=== PATIENT | male | born 1945 | race Caucasian/White ===

== ENCOUNTER → 2017-09-24 06:51 | Outpatient (CLI) | payer MEDICARE, OTHER, SELFPAY ==
--- NOTE | 2017-09-24 06:53 | ECHOCS_ITS ---
Reason For Study: Dyspnea/SOB Procedure This was a 2D Doppler, Color Flow transthoracic echocardiogram. Exam performed in department. Left Ventricle Normal LV size. Left ventricular systolic function is normal. The estimated ejection fraction is 55 %. Transmitral diastolic flow velocities suggest mild (stage 1) diastolic dysfunction (reversed pattern). No regional wall motion abnormalities noted. Right Ventricle Normal RV size. Normal systolic function. Atria Normal left atrium. Normal right atrium. Mitral Valve Normal mitral valve. Tricuspid Valve Normal tricuspid valve. Mild (1+) tricuspid valve insufficiency. Aortic Valve Normal aortic valve. Pulmonic Valve Normal pulmonic valve. Great Vessels Normal aortic root. The pulmonary artery is normal size. Normal inferior vena cava. Pericardium/Pleural No pericardial effusion. Medication Definity0.3ml given slow IV push to enhance endocardial definition. MMode/2D Measurements & Calculations LVIDd: 4.1 cm IVSd: 1.2 cm Ao root diam: 2.6 cm LVIDs: 2.5 cm LVPWd: 1.1 cm LA dimension: 4.1 cm RVDd: 3.6 cm FS: 38.5 % LAV(MOD-bp): 41.8 ml LAV(MOD-bp) Indexed: 22.3 ml/m2 LA A4 area: 15.3 cm2 RA A4 area: 12.6 cm2 LAV(MOD-sp2): 42.3 ml LAV(MOD-sp4): 37.2 ml Doppler Measurements & Calculations MV E max osito: 82.2 cm/sec Lat Peak E' Osito: 11.2 cm/sec Med Peak E' Osito: 7.6 cm/sec MV A max osito: 103.2 cm/sec E/E' lat: 7.3 E/E' med: 10.9 MV E/A: 0.80 Ao V2 max: 163.6 cm/sec LV V1 max: 135.0 cm/sec PA V2 max: 84.4 cm/sec Ao max P.7 mmHg LV V1 max P.3 mmHg Ao V2 mean: 113.1 cm/sec Ao mean P.7 mmHg Ao V2 VTI: 33.3 cm Interpretation Summary Normal LV size. Left ventricular systolic function is normal. The estimated ejection fraction is 55 %. Transmitral diastolic flow velocities suggest mild (stage 1) diastolic dysfunction (reversed pattern). Mild (1+) tricuspid valve insufficiency. Contrast injection was performed. Ordering Physician: Jag Bailey Referring Physician: Tanner Li Performed By: Korin Bhat, ALDO, RVT
--- NOTE | 2017-09-24 17:24 | STRESSREP ---
Stress Test Report Exercise myocardial perfusion stress test. 72-year-old man with a history of known coronary artery disease post angioplasty and stenting of the right coronary artery and the left circumflex artery. Stress protocol: Resting EKG demonstrates normal sinus rhythm with rate of 60 bpm normal intervals and noted resting blood pressure is 158/94 mmHg. The patient exercised according to the regular Ivan protocol for total duration of 7 minutes and 30 seconds. The maximum heart rate attained was 133 bpm which was 88% of maximum predicted heart rate the maximum workload attained was 9.3 metabolic equivalents. At rest there were no ST or T-wave changes noted suggest ischemia at peak exercise upsloping ST changes were noted with no meet the criteria for ischemia. During recovery ventricular couplet activity was noted. The resting blood pressure is 158/94 with a peak blood pressure 190/90 mmHg. No chest pain was noted slight shortness of breath was present. Myocardial perfusion protocol. 11.2 mCi of technetium 99m sestamibi was injected at rest. The patient exercised for 7 minutes and 30 seconds attaining 88% maximum predicted heart rate and a workload of 9.3 metabolic equivalents. At peak exercise 32.3 mCi of technetium 99m sestamibi was injected stress images were obtained stress and rest images were reconstructed and compared in the short axis vertical long and horizontal long axis. Gated images were also obtained. Perfusion SPECT analysis. Review of the stress images demonstrate normal cardiac silhouette size. There is a medium-sized defect noted involving the mid inferior wall noted on the stress images. The resting images demonstrate near complete reperfusion of the above defect. The basal inferior wall appears to have a fixed small defect. The rest of the robins appear to be well perfused. The above is indicative of a medium size mid inferior wall ischemic zone. Gated SPECT analysis. The gated ejection fraction is noted to be 61%. Conclusion: Abnormal exercise myocardial perfusion stress test with moderate amount of ischemia noted in the mid inferior wall of a moderate to high workload. No clinical angina noted. Preserved ejection fraction.
== END ==
PROVIDERS: Family Provider Family Medicine; PCP Family Medicine; Visit Provider Internal Medicine Cardiovascular Disease
DX: I25.10 Atherosclerotic heart disease of native coronary artery without angina pectoris (principal); R06.00 Dyspnea, unspecified
CPT/HCPCS: 78452; 93017; 93306; A9500; Q9957; A4216; C8929; J2785

== ENCOUNTER → 2017-09-29 14:47 | Outpatient (CLI) | payer MEDICARE, OTHER, SELFPAY ==
--- NOTE | 2017-09-29 15:00 | RAD_ITS ---
STUDY: X-RAY CHEST REASON FOR EXAM: Male, 72 years old. Preprocedure assessment TECHNIQUE: Frontal and lateral views of the chest were obtained. COMPARISON: None. FINDINGS: The lungs are adequately aerated. There are coarse opacities in the lingula. There are vague nodular opacities in the periphery of the right upper lung. There is no demonstrated pleural abnormality. The cardiac silhouette is normal in size. The mediastinum and hilar regions are unremarkable. Normal visualized pulmonary arteries. Normal visualized aortic arch and descending thoracic aorta. There are diffuse degenerative changes of the visualized spine. The visualized ribs, clavicles, and shoulders are unremarkable. There is no demonstrated abnormality of the visualized upper abdomen. RAD/Chest PA and Lateral IMPRESSION: No acute cardiopulmonary abnormalities. There is minimal scarring in the lingula. There are two vague nodular opacities in the periphery of the right upper lung, possible granulomas or artifact. Follow-up can be obtained with a repeat study in 4-6 weeks, or with chest CT. Electronically Signed: Mansi Serrano MD at 10:17 EDT Tel Direct: [phone], Service support ,
[2017-09-29 15:08] LABS: Hematocrit 44.2 % (40-54); Hemoglobin 15.4 g/dl (13.0-16.5); Mean Corp Hgb Conc 34.8 g/gl (32-36); Mean Corpuscular Hgb 29.2 pg (27.0-32.0); Mean Corpuscular Volume 83.7 fL (80-94); Mean Platelet Vol. 8.8 fl (6.2-12.0); Platelet Count 282 K/mm3 (150-450); RBC Distribution Width CV 13.5 % (11.6-14.6); RBC Distribution Width SD 41.6 fl (35.1-43.9); Red Blood Count 5.28 M/mm3 (4.6-6.2); White Blood Count 7.3 K/mm3 (4.4-11.0)
[2017-09-29 15:10] LABS: Scan Indicated on CBC? Y/N NO
[2017-09-29 15:31] LABS: Anion Gap 3 (5-15); BUN 18 mg/dL (7-18); BUN/Creat Ratio 19.3 RATIO (10-20); Calcium,Total 8.8 mg/dL (8.5-10.1); Chloride 109 mmol/L (98-107); Creatinine, Serum 0.93 mg/dL (0.70-1.30); EST Glomerular Filtration Rate 85 mL/min (>60); Est Glom Filt Rate - Afr Amer 103 mL/min (>60); Glucose 81 mg/dL (74-106); Potassium 3.9 mmol/L (3.5-5.1); Sodium Level 140 mmol/L (136-145)
== END ==
PROVIDERS: Family Provider Family Medicine; PCP Family Medicine; Visit Provider Internal Medicine Cardiovascular Disease
DX: R94.39 Abnormal result of other cardiovascular function study (principal)
CPT/HCPCS: 36415; 71046; 80048; 85027

== ENCOUNTER 2017-10-03 08:51 | Day surgery (SDC) | payer MEDICARE, OTHER, SELFPAY ==
[2017-10-02 12:04] VITALS: BMI 28.5
[2017-10-03] VITALS (16 sets, daily range): BP systolic 126–163; BP diastolic 79–98; PULSE 70–99; RESP 13–24; TEMP 36.7–36.8; O2SAT 92–97; BMI 28.2
--- NOTE | 2017-10-03 11:12 | CL.D_ITS ---
Patient Name: VEGA FRAZIER Study Date: 10/03/2017 Performing: Jag Bailey MD Ht: 66.14 inches 168 cm : 1945 Wt: 176.37 lbs 80 kg Age: 72 Gender: male BSA: 1.9 PROCEDURE(S) PERFORMED BU42-XBW/COR/LV CLINICAL PROFILE AND INDICATIONS Indications: Other Heart Failure: None Stress/Imaging Stress Test w/SPECT MPI: Yes Result: Positive Low RiskStress Test with SPECT MPI: Positive Low Risk Angina Classification Anginal Classification w/in 2 Weeks: CCS I CAD Presentations: Stable angina. CONCLUSIONS Mild disease noted of the left anterior descending artery. Patent stents noted in the left circumfle x artery with no significant stenosis. 40-50% in-stent stenosis of the right coronary artery and a n ew 90% posts stent stenosis RECOMMENDATIONS Referred for immediate PCI DESCRIPTION OF PROCEDURE The patient arrived to the procedure lab. The risks and benefits of the procedure as well as a full d escription of our services here and current unavailability of surgical backup were fully explained to the patient and/or their significant other prior to the catheterization. The Timeout was completed, verifying the correct patient and procedure. The patient's procedural site was prepped and draped in the usual fashion. Local anesthetic was given subcutaneously to right groin region with Lidocaine 2%. Using a modified Seldinger technique, arterial access was obtained via the right femoral artery, a 5 Fr sheath was inserted. Left Coronary Artery selective angiography was performed in multiple views u sing a 5 Fr. JL4 catheter. Right Coronary Artery selective angiography was then performed in multiple views using a 5 Fr. 3DRC (Yoan) catheter. Left Ventriculography was performed in CHOPRA projection using a 5 Fr. Pigtail catheter. LV to AO pullback pressures were then recorded. CORONARY ANGIOGRAPHY DOMINANCE: Right Dominant LEFT HEART ASSESSMENT Left Ventricular Ejection Fraction: by LV Gram 60 % Normal LV wall motion LEFT MAIN: short mild disease LEFT ANTERIOR DECENDING ARTERY: Mild luminal irregularities CIRCUMFLEX ARTERY: Previously placed stent is patent RIGHT CORONARY ARTERY: Mild luminal irregularities DISTAL RCA: Previously placed stent has instent 50 % restenosis with a new 90% at distal edge of ghassan nt COMPLICATIONS PROCEDURE MEDICATIONS Versed 1 mg IV Versed 1 mg IV Versed 1 mg IV Oxygen: 2 L/min via nasal cannula Heparin 6000 unit(s) IV 10/03/2017 11:04:01 Nitro 200 mcg IC 10/03/2017 11:06:55 SUMMARY OF HEMODYNAMIC DATA Time AIR REST ECG 09:14:23 AO 135/90 (113) SA 10:45:19 LV 127/-6, 14 10:53:57 LV 126/-5, 15 10:54:04 LV 100/17, 32 10:54:48 LVp 124/-1, 17 10:55:06 AOp 123/64 (91) 10:55:11 Signed By Jag Bailey MD On 10/03/2017 11:11:46 Jag Bailey MD
[2017-10-03 12:27] LABS: Hemoglobin 14.9 g/dl (13.0-16.5); Mean Corp Hgb Conc 34.7 g/gl (32-36); Mean Corpuscular Volume 83.8 fL (80-94); Mean Platelet Vol. 9.1 fl (6.2-12.0); Platelet Count 246 K/mm3 (150-450); RBC Distribution Width CV 13.6 % (11.6-14.6); RBC Distribution Width SD 41.6 fl (35.1-43.9); Red Blood Count 5.13 M/mm3 (4.6-6.2); White Blood Count 7.4 K/mm3 (4.4-11.0)
[2017-10-03 12:28] LABS: Scan Indicated on CBC? Y/N NO
[2017-10-03 12:40] LABS: CPK Total, Creatine Kinase 70 U/L (39-308)
[2017-10-03 12:41] LABS: ACT Activated Clotting Time 213 sec (74-137)
[2017-10-03 13:54] LABS: M R Staph aureus DNA By PCR Negative (Negative); Probe Check PASS; Specimen Processing Control PASS
--- NOTE | 2017-10-03 15:31 | CL.I_ITS ---
Patient Name: VEGA FRAZIER Study Date: 10/03/2017 Performing: Isaías Bell MD Ht: 66.14 inches 168 cm : 1945 Wt: 176.37 lbs 80 kg Age: 72 Gender: male BSA: 1.9 PROCEDURE(S) PERFORMED [id number] W OR WO PTCA, SINGLE CORONARY ARTERY CLINICAL PROFILE AND CO-MORBIDITIES Indications: Other, Worsening Angina, Stable Known CAD Heart Failure: None Stress/Imaging Stress Test w/SPECT MPI: Yes Result: Positive Low Risk Stress Test with SPECT MPI: Positive Low Risk Angina Classification Anginal Classification w/in 2 Weeks: CCS I CAD Presentations: Stable angina. Unstable angina. Comorbidities/Risk Factors: Hypertension Dyslipidemia Prior PCI CONCLUSIONS Successful PTCA/MINA of the distal RCA unitilzing a 3.0 x 38 Promus Synergy stent, post dilated proxim ally and within old 3.5 mm Taxus stent with a 3.5 x 12 NC balloon; 75%-->0%, no dissection. RECOMMENDATIONS Highly recommend quitting all tobacco products Follow up with primary mechatronics engineer Risk factor modification ASA Indefinitley Plavix for at least 12 months Routine post interventional care Refer for Outpatient Cardiac Rehab Manual sheath removal per protocol Follow up with Dr. Bailey DESCRIPTION OF PROCEDURE The patient arrived to the procedure lab. The risks and benefits of the procedure as well as a full d escription of our services here and current unavailability of surgical backup were fully explained to the patient and/or their significant other prior to the catheterization. The Timeout was completed, verifying the correct patient and procedure. The patient's procedural site was prepped and draped in the usual fashion. Local anesthetic was given subcutaneously to right groin region with Lidocaine 2% Using a modified Seldinger technique,arterial access was obtained via the right femoral artery, a 5Fr sheath was inserted. Left Coronary Artery selective angiography was performed in multiple views usin g a 5 Fr. JL4 catheter. Right Coronary Artery selective angiography was then performed in multiple vi ews using a 5 Fr. 3DRC (Yoan) catheter. Left Ventriculography was performed in CHOPRA projection usi ng a 5 Fr. Pigtail catheter. LV to AO pullback pressures were then recorded.The images were reviewed and options discussed. A decision was then made to proceed with an Intervention, IVUS or other adjunc t procedure. Arterial sheath was exchanged for a 6 Fr Sheath Angiogram performed pre balloon dilatation. bmw Guide catheter was inserted and engaged into the RCA. bmw Guide wire was advanced to the RCA. emerge 2.00 x 12 Balloon catheter was advanced across lesion in the right coronary, distal. PTCA balloon inflated at 8 atms for 11 secs Angiogram performed pre stent deployment. synergy 3.00 x 38 Drug Eluting stent was advanced across the lesion in the right coronary, distal. Angiogram performed post stent deploym ent. nc emerge 3.5 x 12 Balloon catheter was inserted post stent. Angiogram performed post stent depl oyment.. . The arterial sheath was pulled and a Mynx closure device was deployed for hemostasis. INTERVENTION INFORMATION LESION SITE: RCA (Distal) Lesion Complexity: High/C, lesion at bifurcation: No, thrombus present: No, lesion length: 38 mm, cul prit lesion: Yes, In-stent restenosis: Yes Pre Stenosis: 75 % Pre intervention MARLA flow: 3 PROCEDURE: Drug Eluting Stent with pre and post dilatation Post Stenosis: 0 % Post intervention MARLA flow: 3 Lesion Devices: Ayala .014 BMW [place] Straight 190cm Genaro Sci EMERGE MR 2.00x12 BALLOON Medtronic 6 Fr HSII 100cm Guide Catheter Genaro Sci Synergy MR MINA 3.00x38 Genaro Sci NC EMERGE MR 3.50x12 BALLOON COMPLICATIONS No Complications PROCEDURE MEDICATIONS Versed 1 mg IV Versed 1 mg IV Versed 1 mg IV Oxygen: 2 L/min via nasal cannula Heparin 6000 unit(s) IV 10/03/2017 11:04:01 Nitro 200 mcg IC 10/03/2017 11:06:55 Nitro 200 mcg IC 10/03/2017 11:06:55 SUMMARY OF HEMODYNAMIC DATA Time AIR REST ECG 09:14:23 AO 135/90 (113) SA 10:45:19 LV 127/-6, 14 10:53:57 LV 126/-5, 15 10:54:04 LV 100/17, 32 10:54:48 LVp 124/-1, 17 10:55:06 AOp 123/64 (91) 10:55:11 Signed By Isaías Bell MD On 10/03/2017 15:31:00 Isaías Bell MD
--- NOTE | 2017-10-03 15:45 | CRPHASE1 ---
Patient Data/Charges Phase II Referral:: [facility] Start Phase II:: FOLLOWING CARDIOLOGY OFFICE VISIT Risk Factors/Lifestyle Smoking Status: Never smoker Hx Metabolic Disorders: Yes Hx Dyslipidemia: Yes Height: 5 ft 6 in - WT 176# ETOH: Yes Risk Factor for Sedentary Lifestyle: Moderate Risk Family History: Family History (Last Reviewed 09/10/17 @ 09:59 by Jag Bailey MD) Father CAD (coronary artery disease) Myocardial infarction Brother Heart disease Other Hypertension Family History: Heart Disease Past Cardiac Illness: Coronary Artery Disease, Previous PCI w/Stent Phase I Education Given On:: [place], Nutrition, Antiplatelet medication Issues Affecting Care:: None Knowledge of Condition:: Yes Learning Preferences: Verbal Hospital Course Presenting Symptoms:: ABNORMAL STRESS Medical/Surgical History DC:: No CAD:: Yes Diabetes:: No Hypertension:: No Dyslipidemia:: Yes Arthritis:: Yes PTCA:: Yes - 2005 Discharge/Home/Social Eval Discharge Disposition: Home
--- NOTE | 2017-10-03 15:49 | CRPHASE1_ITS ---
Patient Data/Charges Phase II Referral:: [facility] Start Phase II:: FOLLOWING CARDIOLOGY OFFICE VISIT Risk Factors/Lifestyle Smoking Status: Never smoker Hx Metabolic Disorders: Yes Hx Dyslipidemia: Yes Height: 5 ft 6 in - WT 176# ETOH: Yes Risk Factor for Sedentary Lifestyle: Moderate Risk Family History: Family History (Last Reviewed 09/10/17 @ 09:59 by Jag Bailey MD) Father CAD (coronary artery disease) Myocardial infarction Brother Heart disease Other Hypertension Family History: Heart Disease Past Cardiac Illness: Coronary Artery Disease, Previous PCI w/Stent Phase I Education Given On:: [place], Nutrition, Antiplatelet medication Issues Affecting Care:: None Knowledge of Condition:: Yes Learning Preferences: Verbal Hospital Course Presenting Symptoms:: ABNORMAL STRESS Medical/Surgical History DC:: No CAD:: Yes Diabetes:: No Hypertension:: No Dyslipidemia:: Yes Arthritis:: Yes PTCA:: Yes - 2005 Discharge/Home/Social Eval Discharge Disposition: Home
--- NOTE | 2017-10-03 15:50 | CRPH1.INST_ITS ---
General Education CAD and cardiac anatomy and function:: Patient communicates acknowledgment Explanation of diagnoses and procedures:: Patient communicates acknowledgment Sign/Symptoms of TN:: Patient communicates acknowledgment Antiplatelet therapy: Patient communicates acknowledgment Proper use of NTG-SL: Patient communicates acknowledgment Emergency procedures and activation of EMS: Patient communicates acknowledgment Compliance of all prescribed medications: Patient communicates acknowledgment Smoking Patient Nicotine/Smoking Risk Factors Are:: Never smoked Dyslipidemia Recommendations Include:: Lipid profile not available, Reviewed NCEP/ATP guidelines, Therapeutic Lifestyle Change dietary guidelines Dyslipidemia Response Code:: Patient communicates acknowledgment Overweight/Obesity Patient Overweight/Obesity Risk Factors Are:: Overweight = 26-29 Recommendations Include:: Weight loss of 5-10%, Reduced calorie diet, Exercise 5 -7 times/week Overweight/Obesity:: Patient communicates acknowledgment Hypertension Patient Hypertension Risk Factors Are:: No documented hx of HTN Heart Disease Patient Heart Disease Risk Factors Are:: Family history of heart disease < 65 years old, Previous cardiac event Heart Disease Response Code:: Patient communicates acknowledgment Diabetes Patient Diabetes Risk Factors Are:: No documented hx of diabetes Metabolic Syndrome Recommendations Include:: Does not meet criteria Sedentary Patient Sedentary Risk Factors Are:: Lack of regular exercise Recommendations Include:: Aerobic exercise 5-7 times/week for 20-30 minutes continuously, Benefits of regular exercise, Discussed home walking program, Monitored Outpatient Cardiac Rehab Sedentary Response Code:: Patient communicates acknowledgment Stress Recommendations Include:: Identification of stressors, and assessment of coping skills, Stress management techniques Stress Response Code:: Patient communicates acknowledgment
[2017-10-03 18:01] LABS: Hematocrit 45.4 % (40-54); Hemoglobin 15.3 g/dl (13.0-16.5); Mean Corp Hgb Conc 33.7 g/gl (32-36); Mean Corpuscular Hgb 28.4 pg (27.0-32.0); Mean Corpuscular Volume 84.4 fL (80-94); Platelet Count 225 K/mm3 (150-450); RBC Distribution Width CV 13.7 % (11.6-14.6); RBC Distribution Width SD 42.2 fl (35.1-43.9); Red Blood Count 5.38 M/mm3 (4.6-6.2); White Blood Count 8.3 K/mm3 (4.4-11.0)
[2017-10-03 18:12] LABS: CPK Total, Creatine Kinase 70 U/L (39-308)
[2017-10-03 18:16] LABS: Scan Indicated on CBC? Y/N NO
[2017-10-03] MEDS: Metoprolol Tartrate 25 MG Tablet 12.5 MG PO (20:38)
[2017-10-04] VITALS (14 sets, daily range): BP systolic 95–154; BP diastolic 46–89; PULSE 62–90; RESP 15–19; TEMP 36.7–36.9; O2SAT 93–98
[2017-10-04 00:18] LABS: Hematocrit 43.5 % (40-54); Hemoglobin 14.7 g/dl (13.0-16.5); Mean Corp Hgb Conc 33.8 g/gl (32-36); Mean Corpuscular Hgb 28.6 pg (27.0-32.0); Mean Corpuscular Volume 84.6 fL (80-94); Platelet Count 227 K/mm3 (150-450); RBC Distribution Width CV 13.6 % (11.6-14.6); Red Blood Count 5.14 M/mm3 (4.6-6.2); White Blood Count 7.5 K/mm3 (4.4-11.0)
[2017-10-04 00:19] LABS: Scan Indicated on CBC? Y/N NO
[2017-10-04 00:37] LABS: CPK Total, Creatine Kinase 62 U/L (39-308)
[2017-10-04] MEDS: 0.9% NaCl Peripheral Flush Adult/Peds IV (05:24)
[2017-10-04 05:40] LABS: Mean Corp Hgb Conc 34.9 g/gl (32-36); Mean Corpuscular Hgb 29.2 pg (27.0-32.0); Mean Corpuscular Volume 83.7 fL (80-94); Platelet Count 242 K/mm3 (150-450); RBC Distribution Width CV 13.6 % (11.6-14.6); RBC Distribution Width SD 41.4 fl (35.1-43.9); Red Blood Count 5.14 M/mm3 (4.6-6.2); White Blood Count 7.7 K/mm3 (4.4-11.0)
[2017-10-04 05:41] LABS: Scan Indicated on CBC? Y/N NO
[2017-10-04 06:40] LABS: Anion Gap 9 (5-15); BUN 14 mg/dL (7-18); BUN/Creat Ratio 16.5 RATIO (10-20); Calcium,Total 8.8 mg/dL (8.5-10.1); Chloride 106 mmol/L (98-107); Cholesterol 126 mg/dL (200); Creatinine, Serum 0.85 mg/dL (0.70-1.30); EST Glomerular Filtration Rate 95 mL/min (>60); Est Glom Filt Rate - Afr Amer 115 mL/min (>60); Estimated Creatinine Clearance 72.97 ml/min; Glucose 94 mg/dL (74-106); High Density Lipoprotein 31 mg/dL; Potassium 4.2 mmol/L (3.5-5.1); Sodium Level 141 mmol/L (136-145); Triglycerides 158 mg/dL; Very Low Density Lipoprotein 32 mg/dL (5-40)
[2017-10-04] MEDS: Aspirin E.C. 81 MG Tablet PO (08:06)
[2017-10-04] MEDS: Metoprolol Tartrate 25 MG Tablet 12.5 MG PO (09:19)
[2017-10-04] MEDS: Lisinopril 5 MG Tablet PO (09:19)
[2017-10-04] MEDS: Atorvastatin Calcium 40 MG Tablet PO (09:19)
[2017-10-04] MEDS: Clopidogrel Bisulfate 75 MG Tablet PO (09:20)
--- NOTE | 2017-10-04 09:37 | PN.CARD_ITS ---
Subjectve: The patient was seen and evaluated. Appears to be doing well. Has no chest pain no arrhythmias and no groin complaints mild ecchymosis only noted. Objective: Vital Signs Temp Pulse Resp BP Pulse Ox 98.5 F 89 18 154/85 H 93 10/04/17 08:00 10/04/17 09:19 10/04/17 09:00 10/04/17 09:19 10/04/17 09:00 Oxygen Flow Rate (L/min) 2 Oxygen Delivery Method Room Air Weight: 168 lb 13.985 oz Body Mass Index (BMI) 28.2 Intake and Output for Last 24 Hours 10/02/17 10/03/17 10/04/17 23:59 23:59 23:59 Intake Total 780 / 780 520 / 520 Balance 780 / 780 520 / 520 General: Awake, Alert, Oriented x 3 HEENT: PERRL, EOMI, Sclera Non Icteric Neck: Supple, Good ROM, No Lymph Node Enlargement Lungs: Clear to auscultation Cardiovascular: Regular Rhythm, Normal S1, Normal S2, No Murmurs, No Rubs, No Gallops Vascular: No Carotid Bruits, Normal Femoral Pulses, Normal Radial Pulses, Normal Dorsalis Pedal Pulse, Normal Posterior Tibial Pulses Abdomen: Bowel Sounds Present, Soft, Non Tender, No HSM, No Organomegaly Extremities: No Cyanosis, No Clubbing, No edema Neurological: No Focal Motor or Sensory Deficit 10/03/17 12:10: WBC 7.4, RBC 5.13, Hgb 14.9, Hct 43.0, MCV 83.8, MCH 29.0, MCHC 34.7, RDW 13.6, RDW Differential 41.6, Plt Count 246, MPV 9.1 10/03/17 17:45: WBC 8.3, RBC 5.38, Hgb 15.3, Hct 45.4, MCV 84.4, MCH 28.4, MCHC 33.7, RDW 13.7, RDW Differential 42.2, Plt Count 225, MPV 9.0 10/04/17 00:00: WBC 7.5, RBC 5.14, Hgb 14.7, Hct 43.5, MCV 84.6, MCH 28.6, MCHC 33.8, RDW 13.6, RDW Differential 42.0, Plt Count 227, MPV 9.0 04/07/18 05:20: Sodium 141, Potassium 4.2, Chloride 106, Carbon Dioxide 26.0, Anion Gap 9, BUN 14, Creatinine 0.85, Est GFR (MDRD) Af Amer 115, Est GFR (MDRD ) Non-Af 95, BUN/Creatinine Ratio 16.5, Glucose 94, Calcium 8.8, Triglycerides 158, Cholesterol 126, LDL Cholesterol 63, VLDL Cholesterol 32, HDL Cholesterol 31 L 10/04/17 05:20: WBC 7.7, RBC 5.14, Hgb 15.0, Hct 43.0, MCV 83.7, MCH 29.2, MCHC 34.9, RDW 13.6, RDW Differential 41.4, Plt Count 242, MPV 9.0 Rhythm: EKG: ECHO: Stress Test: Cardiac Cath: PCI: CT Surgery: Holter monitor: EPS: PPM: CXR: Chest CT Scan: Medical Necessity - Tobacco Use Smoking Status: Never smoker Assessment/Plan 1. Coronary artery disease status post angioplasty Patient had known coronary artery disease with abnormal stress test he underwent cardiac catheterization which revealed mild left anterior descending artery stenosis, previously placed stent in the circumflex artery which was patent, and high-grade stenosis in the right coronary artery within and after the previously placed stent. He underwent angioplasty and stenting with a 3.5? 38 mm Promus drug-eluting stent successfully without any complications. His hemoglobin has remained stable his creatinine has remained stable with no significant fall and rise respectively and EKG has remained unremarkable. Patient will be discharged today to follow-up in our office. He will remain on aspirin 81 mg a day, Plavix 75 mg a day, metoprolol 12.5 mg twice daily, and lisinopril 10 mg a day. Will also participate in cardiac rehabilitation.
--- NOTE | 2017-10-04 09:43 | DCINST_ITS ---
Discharge Diet: Low fat/ Low Cholesterol May resume sexual activity in: 1 week Lifting Restrictions: 10 pounds and also avoid any pushing or pulling for 3 days after your test. Additional Activity Instructions:: You must have someone drive you home. Do not drive until instructed by your doctor. You must have someone stay with you all night after your test. Rest in bed or on the couch until the next morning. Limit the number of times you go up and down stairs the day of your test. Apply pressure to the puncture site if you sneeze or cough. Call your doctor if your incision/area has: Increased Pain/ Swelling, Increased Redness, Foul Smelling Discharge, Swelling at the incision site Call your doctor if you observe: Fever of 101 or Higher Change Dressing in (Days):: 2 Cleanse incision/area with: Keep Dressing Clean & Dry Additional Dressing/Incision Instructions:: Keep the dressing (bandage) on until the next morning. You may then shower, but do not take a tub bath for 5 days after your test. It is normal to have some tenderness and discomfort at the puncture site. Sometimes bruising also occurs. However, if pain, numbness, or coldness occurs below the puncture site (in your leg, toes, arms or fingers) call your doctor at once. You may have a small, marble sized knot at the puncture site. This is normal. Do not rub it. It will go away in 4-6 weeks. Bleeding can occur from the area where the puncture was done. Blood may spurt or drip from the site. If blood spurts, apply pressure right away to stop bleeding and call 911. Although rare, bleeding into the tissue (hematoma) can also occur. If this happens, a large, firm area goose egg under the skin will appear. If any of these occur, lie down as flat as you can and have someone apply firm pressure to the cath site with a gauze pad or a clean washcloth for 10-15 minutes. Call 911 or go to the Emergency Department. Allergies/Adverse Reactions: Allergies Penicillins Allergy (Verified 09/10/17 09:21) Rash Medications to take at Discharge aspirin 81 mg tablet,delayed release 81 mg PO QDAY tab 09/09/17 turmeric root extract 500 mg capsule 500 mg PO QDAY 09/10/17 atorvastatin 40 mg tablet 40 mg PO QDAY #30 tab 09/24/17 clopidogrel 75 mg tablet 75 mg PO .COMPLEX #30 tab 09/26/17 Lisinopril [Zestril] 10 mg PO DAILY #90 tab 10/04/17 Metoprolol Tartrate [Lopressor (beta ayad)] 12.5 mg PO BID #120 tab 10/04/17 The following prescriptions were given: Lisinopril [Zestril] 10 mg PO DAILY #90 tab Metoprolol Tartrate [Lopressor (beta ayad)] 12.5 mg PO BID #120 tab Primary Care Physician: Tanner Li MD [Primary Care Provider] - Please Follow Up With: [facility]. Cardiac Rehabilitation Info Cardiac Rehabilitation Program Information: Cardiac Rehabilitation is important for patients like you who are recovering from a heart problem. Cardiac rehabilitation programs are recognized as integral to the continued care of the patient with coronary heart disease. The cardiac rehabilitation program is designed to optimize a patient's physical, psychological, and social functioning. Health wound care specialist work in cardiac rehabilitation programs and assist you with getting the treatments you need to get stronger and healthier - like exercise, healthy eating habits, and medications. Cardiac rehabilitation has been show to help people with heart problems live longer and have better life enjoyment than people who do not go to cardiac rehabilitation. Please contact the Cardiac Rehabilitation Program at [facility] at in two weeks if you have not heard from them.
[2017-10-04] MEDS: Lisinopril 10 MG Tablet PO (10:13)
--- NOTE | 2017-10-04 12:06 | EKG12_ITS ---
Test Reason : AM EKG Blood Pressure : / mmHG Vent. Rate : 076 BPM Atrial Rate : 076 BPM P-R Int : 172 ms QRS Dur : 072 ms QT Int : 388 ms P-R-T Axes : 065 066 066 degrees QTc Int : 436 ms Normal sinus rhythm Normal ECG No previous ECGs available Confirmed by JOSIE CERNA, MARISSA ([id number]), editor managing newspaper MORE DUNBAR ([id number]) on 10/09/2017 2:21:59 PM Referred By: Marissa Bailey Confirmed By:MARISSA BAILEY MD
== END 2017-10-04 10:25 | disposition home or self-care (01) ==
LOC: CLSP 08:51 → ICU 11:06
PROVIDERS: Internal Medicine Cardiovascular Disease; Family Provider Family Medicine; PCP Family Medicine; Visit Provider Internal Medicine Cardiovascular Disease
DX: T82.855A Stenosis of coronary artery stent, initial encounter (principal); I25.10 Atherosclerotic heart disease of native coronary artery without angina pectoris; E78.5 Hyperlipidemia, unspecified; E78.00 Pure hypercholesterolemia, unspecified; M19.90 Unspecified osteoarthritis, unspecified site; Z87.438 Personal history of other diseases of male genital organs; Z87.440 Personal history of urinary (tract) infections; Z90.89 Acquired absence of other organs; Z79.82 Long term (current) use of aspirin
CPT/HCPCS: 80048; 80061; 82550; 85027; 85347; 87641; 92928; 93005; 93458; 99152; 99153; C1760; J7040; A4216; C1725; C1769; C1874; C1887; C9600; Q9967

== ENCOUNTER → 2017-10-06 15:41 | Outpatient (CLI) | payer MEDICARE, OTHER, SELFPAY ==
--- NOTE | 2017-10-06 15:52 | ADUL_ITS ---
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 LT CFV demonstrates normal phasic flow signal. No evidence of pseudoaneurysm or AV fistula. Procedure Exam performed in department. Interpretation Summary Common femoral arteries appear bilaterally patent, demonstrating pulsatile color flow bilaterally. Common femoral veins are patent bilaterally, demonstrating normal, phasic venous flow. There is no evidence of pseudoanuerysm, arterio-venous fistula, or other iatrogenic abnormality on either side. Ordering Physician: Jag Bailey Referring Physician: Jag Bailey Performed By: Shelly Land RVT
== END ==
PROVIDERS: Family Provider Family Medicine; PCP Family Medicine; Visit Provider Internal Medicine Cardiovascular Disease
DX: R09.89 Other specified symptoms and signs involving the circulatory and respiratory systems (principal); Z95.5 Presence of coronary angioplasty implant and graft
CPT/HCPCS: 93926

== ENCOUNTER → 2020-03-29 06:39 | Outpatient (CLI) | payer MEDICARE, OTHER, SELFPAY ==
[2020-02-03 10:05] VITALS: BMI 28.8
--- NOTE | 2020-03-29 17:46 | STRESSREP ---
Stress Test Report Exercise myocardial perfusion stress test. 74-year-old man with a history of previous drug-eluting stent to the right coronary artery. Stress protocol: Resting EKG demonstrates normal sinus rhythm with a rate of 70 bpm normal intervals are noted resting blood pressure 150/82 mmHg. The patient exercised according to regular Ivan protocol for 6 minutes and 30 seconds. The maximum heart rate attained was 1 and 34 bpm which was 90% of maximum predicted heart rate the maximum workload was 7.7 metabolic equivalents. At rest there were no ST or T wave changes noted suggest ischemia at peak exercise upsloping ST changes only were noted with no meet the criteria for ischemia. No clinical angina was noted. The resting blood pressure was 150/82 mmHg with a peak blood pressure 158/70 mmHg. Myocardial perfusion protocol. 12.0 mCi of technetium 99m sestamibi was injected at rest. The patient exercised according to regular Ivan protocol. At peak exercise 35.7 mCi of technetium 99m sestamibi was injected stress images were obtained stress and rest images are reconstructed and compared in the short axis vertical and horizontal long axis. Gated images were also obtained Perfusion SPECT analysis: Review of the stress images demonstrate normal uptake of tracer noted in all areas of myocardium the resting images similarly demonstrate normal uptake of tracer noted in all areas of the myocardium. No areas of reversibility are noted suggest ischemia no previous infarct is noted. Gated SPECT analysis: The gated ejection fraction is 69%. Conclusion: Normal exercise myocardial perfusion stress test with no evidence of ischemia. Preserved ejection fraction. Good functional capacity.
== END ==
PROVIDERS: PCP Family Medicine; Referring Provider Internal Medicine Cardiovascular Disease; Visit Provider Internal Medicine Cardiovascular Disease
DX: Z95.5 Presence of coronary angioplasty implant and graft (principal)
CPT/HCPCS: 78452; 93017; A9500; A4216

== ENCOUNTER 2020-05-15 14:13 | Inpatient (IN) | payer MEDICARE, OTHER, SELFPAY ==
[2020-02-03 10:05] VITALS: BMI 28.8
[2020-05-15] VITALS (11 sets, daily range): BP systolic 103–133; BP diastolic 63–80; PULSE 83–112; RESP 16–22; TEMP 36.7–36.9; O2SAT 95–96; BMI 25.8
--- NOTE | 2020-05-15 13:26 | HP.PCM_ITS ---
History of Present Illness Date of Admission: 05/15/20 Chief Complaint: shortness of breath The patient is a 75 year old M with a PMH as listed who was admitted as a direct admit from [facility] with a complaint of chest pain and shortness of breath for 2 days. Patient was admitted at [facility] from May 05- for COVID 19 infection. Whilst there, he was on the prophylactic dose of eliquis for DVT prophylaxis. Patient started having shortness of breath 2 days ago, with associated pleuritic chest pain. Chest pain was mainly right sided. He went back to [facility] ER today, where imaging done showed bilateral PE with right heart strain. EKG done showed sinus tachycardia. He was transferred to [facility] o/a of there being no non-COVID beds there. Patient was seen on admission in his room. He still complained of mild shortness of breath, and mild right sided pleuritic chest pain. Review of systems was otherwise negative. Vitals reviewed. Temperature was 98.1 Fahrenheit with blood pressure 133/78, pulse rate of 104 and respiratory of 16. He was saturating 96% on 2 L of oxygen. Past Medical History Past Medical History (Chronic Problems): Chronic Problems (Last Reviewed 02/03/20 @ 10:[address] Jag Bailey MD) Atherosclerosis of coronary artery of jena heart without angina pectoris (Chronic) History of coronary artery stent placement (Chronic 10/03/17) MINA-RCA 3.5 X 28 MM Taxus 02/25/2006 MINA-Mid CX 2.5 x 13 mm and 2.58 mm Cypher 03/10/2006; [id number] RCA w/ 3.0 x 38 Promus Synergy stent 10/03/2017 Essential (primary) hypertension (Chronic) Hyperlipidemia (Chronic) Medical History: Medical History (Last Reviewed 02/03/20 @ 10:[address] Jag Bailey MD) Atherosclerosis of coronary artery of jena heart without angina pectoris (Chronic) I25.10 Essential (primary) hypertension (Chronic) I10 Hyperlipidemia (Chronic) E78.5 Arthritis M19.90 Prostatitis N41.9 Bruit (Inactive) R09.89 Allergies Penicillins Allergy (Verified 02/03/20 10:05) Rash Home Medications: Ambulatory Orders Medication Instructions Recorded aspirin 81 mg tablet,delayed 81 mg PO QDAY tab 09/09/17 release Apixaban [Eliquis] 5 mg PO BID 05/15/20 Atorvastatin Calcium [Lipitor] 40 mg PO QDAY 05/15/20 Clopidogrel Bisulfate [Clopidogrel] 75 mg PO DAILY 05/15/20 Lisinopril [Prinivil] 10 mg PO DAILY 05/15/20 Metoprolol Tartrate 25 mg PO BID 05/15/20 Surgical History: Surgical History (Last Reviewed 02/03/20 @ 10:[address] Jag Bailey MD) History of coronary artery stent placement (Chronic) Onset Date: 10/03/17 Z95.5 MINA-RCA 3.5 X 28 MM Taxus 02/25/2006 MINA-Mid CX 2.5 x 13 mm and 2.58 mm Cypher 03/10/2006; [id number] RCA w/ 3.0 x 38 Promus Synergy stent 10/03/2017 History of appendectomy Z90.49 Psychiatric History: No pertinent psych hx Lives: With Family Smoking Status: Never smoker Alcohol: None Drugs: None - *Family History Maternal Family History: Family History (Last Reviewed 02/03/20 @ 10:[address] Jag Bailey MD) Father CAD (coronary artery disease) Myocardial infarction Brother Heart disease Other Hypertension Review of Systems Constitutional: Denies: Chills, Fever, Malaise, Weakness, Weight Change Eyes: Denies: Blurred vision HEENT: Denies: Head Aches, Sinus Congestion, Sinus Drainage Cardiovascular: Reports: Chest Pain. Denies: Chest Tightness, Heaviness, Light Headedness, Orthopnea, Palpitations, Paroxysmal Noc. Dyspnea, Syncope Respiratory: Reports: Cough, Pleuritic Pain, Shortness of Breath, Shortness of breath at rest, Shortness of breath upon exertion. Denies: Hemoptysis, Sputum production, Wheezing Gastrointestinal: Denies: Abdominal Pain, Nausea, Vomiting Genitourinary: Denies: Dysuria Musculoskeletal: Denies: Joint Pain, Joint Tenderness Skin: Denies: Rash, Wounds Neurological: Denies: Numbness, Tingling, Focal weakness Psychiatric: Denies: Anxiety, Depression, Homicidal Ideations, Suicidal Ideations Hematologic/ Lymphatic: Denies: Easy Bruising, Easy Bleeding VTE Information - Inpt Only VTE Present on Admission: Yes - Physical Exam Vitals/I&O's: Body Mass Index (BMI) 28.8 General: Alert, Oriented x3, Cooperative, No apparent distress HEENT: Atraumatic, PERRLA, EOMI, Normocephalic Oral: Dry Mucosa Neck: Supple, No JVD, Negative Carotid Bruits Lungs: - - diminished breath sounds bibasally, no wheezes or crackles. On 2L of oxygen Cardiovascular: Regular Rhythm, Normal S1, Normal S2, No murmurs, Tachycardic Abdomen: Bowel Sounds Present, Soft, Non Tender Extremities: No clubbing, No cyanosis, No edema, Capillary Refill Less than 3 Seconds Skin: No rashes, No breakdown Musculoskeletal: No Tenderness to Palpation of Joints or Extremities Lymphatic: No Cervical, Supraclavicular, or Inguinal Adenopathy Neurological: Cranial nerves II-XII grossly intact, Neuro grossly intact, Motor Exam 5/5 strength throughout Psych/Mental Status: Normal Affect, Appropriate, Alert and oriented to time, place, person, mood and affect Assessment/Plan 75 y/o admitted with a complaint of shortness of breath and found to have bilateral PE # Bilateral submassive PE with right heart strain * admit to PCU with telemetry * start therapeutic eliquis * get 2 D echo * titrate oxygen to maintain sats >90% * consult pulmonology * #Reent COVID 19 infection * patient still within 14 days of diagnosis; rapid screen done at [facility] was negative * however, since he is still within 14 day window, will put in isolation room with covid precautions * # Hypertension: on metoprolol # Hyperlipidemia: on atorvastatin #CAD s/p stents: on aspirin, statin, plavix, metoprolo and lisinopril; hols aspirin for now as he is on therapeutic eliquis DVT prophylaxis: not needed as he is on therapeutic dose of eliquis COde status; full code * Patient counseled extensively about different types of CODE STATUS including full code, DNR CCA and DNR CCA. Patient elects to be full code. * Total [id number] time 16 minutes. OBSV E&M: 20673 Initial observation care L3 Procedures: 22496 Advncd Care Plan 30 Min
--- NOTE | 2020-05-15 13:52 | NURSING ---
pt recieved flu shot at [facility] -today
--- NOTE | 2020-05-15 14:13 | ECHOD_ITS ---
Reason For Study: Emboli Procedure This was a 2D Doppler, Color Flow transthoracic echocardiogram. The study was technically difficult. The exam was abbreviated due to the COVID 19 protocol. Left Ventricle Normal LV size. Left ventricular systolic function is normal. The estimated ejection fraction is 65 %. No regional wall motion abnormalities noted. Tricuspid Valve Normal tricuspid valve. Unable to estimate RV systolic pressure due to insufficient tricuspid regurgitant envelope. Great Vessels Normal aortic root. The pulmonary artery is normal size. Normal inferior vena cava. Pericardium/Pleural No pericardial effusion. MMode/2D Measurements & Calculations RVDd: 3.2 cm SV(MOD-sp4): 41.6 ml LVAd ap4: 27.5 cm2 EDV(MOD-sp4): 71.6 ml EDV(sp4-el): 73.3 ml LVAs ap4: 15.2 cm2 ESV(MOD-sp4): 30.0 ml ESV(sp4-el): 30.0 ml EF(MOD-sp4): 58.1 % EF(sp4-el): 59.1 % SV(sp4-el): 43.3 ml Doppler Measurements & Calculations PA V2 max: 84.7 cm/sec Interpretation Summary Normal LV size. Left ventricular systolic function is normal. The estimated ejection fraction is 65 %. Unable to estimate RV systolic pressure due to insufficient tricuspid regurgitant envelope. Ordering Physician: Ami Schwartz Referring Physician: Tanner Li Performed By: Brodwolf, Adal, RCS
--- NOTE | 2020-05-15 15:09 | PCM.NTREPORT ---
Nutrition Therapy Report - History Nutrition Services has been consulted to:: Manage nutrient details of diet order Current diet / nutrition support order:: Cardiac - Anthropometric Measurements Height:: 5 ft 6 in Weight:: 72.6 kg Body Mass Index (BMI):: 25.8 - Assessment Food / Nutrition-Related History:: Pt reports UBW~175 lbs and stated wt today ~160 lbs this admit; calculated wt loss~8-9% x past 4-5 weeks since covid19 infection/poor intake. Wt loss and ongoing poor intake are significant for malnutrition and warrant ONS--will provide w/ meals as tolerated. - Nutrition Diagnosis Problem / Etiology / Signs & Symptoms (PES):: Pro/jason malnutrition in the context of acute illness related to inadequate oral intake and calories as evidenced by wt loss~8-9% x past 4-5 weeks since and ongoing poor intake/appetite at meals x past 4-5 weeks as well. Evidence of Malnutrition Exists:: Yes Severe PCM:: Acute Illness - Nutrition Intervention Nutrition Prescription:: Estimated nutrition needs for repletion~3056-3295 kcal and ~75-85 gm protein/day. - Food / Nutrient Delivery Interventions Summary of nutrition intervention:: Will add ONS to meal trays TID---240ml ensure clear w/break; 240ml ensure enlive w/lunch; magic cup w/dinner to provide an additional 880 kcal and 37 gm protein per day. Nutrition support ordered as / adjusted to:: none Nutrition education provided?: No - ONS for tolerance - MNT Monitoring Further MNT monitoring and evaluation required?: Yes MNT Follow-up in:: 3-5 days
[2020-05-15 15:29] LABS: Hematocrit 39.6 % (40-54); Mean Corp Hgb Conc 32.8 g/dL (32-36); Mean Corpuscular Hgb 28.4 pg (27.0-32.0); Mean Corpuscular Volume 86.5 fL (80-94); Mean Platelet Vol. 8.5 fl (6.2-12.0); Platelet Count 424 K/mm3 (150-450); RBC Distribution Width CV 14.6 % (11.6-14.6); RBC Distribution Width SD 46.1 fl (35.1-43.9); Red Blood Count 4.58 M/mm3 (4.6-6.2); White Blood Count 16.5 K/mm3 (4.4-11.0)
[2020-05-15 15:38] LABS: Anion Gap 5 (5-15); BUN 13 mg/dL (7-18); BUN/Creat Ratio 19.7 RATIO (10-20); Calcium,Total 9.5 mg/dL (8.5-10.1); Chloride 103 mmol/L (98-107); Creatinine, Serum 0.66 mg/dL (0.70-1.30); EST Glomerular Filtration Rate 126 mL/min (>60); Est Glom Filt Rate - Afr Amer 152 mL/min (>60); Estimated Creatinine Clearance 59.37 ml/min; Glucose 148 mg/dL (74-106); Potassium 4.5 mmol/L (3.5-5.1); Sodium Level 134 mmol/L (136-145)
[2020-05-15 16:05] LABS: BNP,B-Type NATRIURETIC PEPTIDE 11.5 pg/mL (0-100)
[2020-05-15] MEDS: APIXABAN 5 MG TABLET 10 MG PO ×2 (16:14→21:27)
[2020-05-15] MEDS: 0.9% Saline Lock 10 ML Syringe IV (16:14)
[2020-05-15] MEDS: Atorvastatin Calcium 40 MG Tablet PO (21:23)
[2020-05-15] MEDS: Metoprolol Tartrate 25 MG Tablet PO (21:24)
[2020-05-16] VITALS (17 sets, daily range): BP systolic 109–150; BP diastolic 69–88; PULSE 70–96; RESP 17–20; TEMP 36.7–37.1; O2SAT 89–97
[2020-05-16] MEDS: Acetaminophen 325 MG Tablet 650 MG PO ×3 (04:35→19:49)
[2020-05-16 06:48] LABS: Absolute Lymphocyte Count 1.31 X10^3/uL (0.83-4.51); Absolute Neutrophil Count 18.6 X10^3/uL (2.0-7.7); Basophil# 0.01 X10^3/uL; Eosinophil# 0.01 X10^3/uL; Hematocrit 39.3 % (40-54); Hemoglobin 12.8 g/dL (13.0-16.5); Lymphocyte # 1.31 X10^3/ul (4.0); Lymphocyte % 6.1 % (19-41); Mean Corp Hgb Conc 32.6 g/dL (32-36); Mean Corpuscular Hgb 28.6 pg (27.0-32.0); Mean Corpuscular Volume 87.7 fL (80-94); Mean Platelet Vol. 8.3 fl (6.2-12.0); Monocyte# 1.28 X10^3/uL; NRBC Flagged by Analyzer 0 % (0-5); Neutrophil # 18.59 X10^3/uL (2.7-7.7); Neutrophil % 87.2 % (47-70); Platelet Count 583 K/mm3 (150-450); RBC Distribution Width CV 14.4 % (11.6-14.6); RBC Distribution Width SD 46.4 fl (35.1-43.9); Red Blood Count 4.48 M/mm3 (4.6-6.2); White Blood Count 21.4 K/mm3 (4.4-11.0)
[2020-05-16 07:08] LABS: Anion Gap 8 (5-15); BUN 19 mg/dL (7-18); BUN/Creat Ratio 23.3 RATIO (10-20); Chloride 101 mmol/L (98-107); Creatinine, Serum 0.82 mg/dL (0.70-1.30); EST Glomerular Filtration Rate 99 mL/min (>60); Est Glom Filt Rate - Afr Amer 119 mL/min (>60); Glucose 134 mg/dL (74-106); Potassium 4.4 mmol/L (3.5-5.1); Sodium Level 134 mmol/L (136-145)
[2020-05-16] MEDS: Metoprolol Tartrate 25 MG Tablet PO ×2 (08:49→19:49)
[2020-05-16] MEDS: Lisinopril 10 MG Tablet PO (08:50)
[2020-05-16] MEDS: Clopidogrel Bisulfate 75 MG Tablet PO (08:50)
[2020-05-16] MEDS: APIXABAN 5 MG TABLET 10 MG PO ×2 (08:50→19:49)
[2020-05-16] MEDS: 0.9% Saline Lock 10 ML Syringe IV (08:51)
--- NOTE | 2020-05-16 11:54 | CASEMGMT ---
EVANGELISTA ONEILL assessment: Phone interview for initial transition planning/care coordination assessment as pt is in COVID precautions. EVANGELISTA ONEILL introduced self and role at [facility], pt voices understanding and consents to assessment at this time. Pt is A/Ox4 at this time and answers all questions appropriately at this time. Pt states has already had COVID as well. Care providers, pharmacy, and demographics verified at this time. PCP: Guillermo Specialists: Lynn, cardio Preferred Pharmacy: [facility] Insurance: MCR A/B, [employer] Prescription Benefit: Aetna-Pt has already been on Eliquis but did not have loading dose initially. Pt states already utilized the 30 day free trial card. Living Will/HPOA: Pt states has LW/HPOA and is aware that they are not on file at [facility] at this time. Pt states , Shayy Urena, is HPOA. LNOK: Shayy Urena, Living Arrangements: Pt states lives in 1 story home with 5-6 steps in and states no concerns at home at this time. Pt states is independent with ADL's. Transportation: Pt states drives self and states no transportation concerns at this time. Pt states will be able to pick him up at discharge. DME/HHC: Pt states no current DME or need for any at this time. Pt states no preference between [employer], if he qualifies for home oxygen at discharge. Pt states no hx of HHC or SNF in the past. Pt has been independent in the room. Pt states no concerns with going home at time of discharge. 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 Pt states does not smoke cigarettes or drink ETOH. Pt states no further concerns/needs at this time. CM to follow for home oxygen and any further discharge planning/needs. Advised pt to ask for CM if any further questions/concerns/needs arise, voices understanding. Pt Goal: Home Plan: Home, pending home oxygen qualification. [place] EVANGELISTA ONEILL
--- NOTE | 2020-05-16 12:38 | PN_ITS ---
Reason for Visit: Follow-up for PE Objective: Patient was previously admitted in [facility] from #6-10 for COVID- 19 infection and had remdesivir and Decadron. Later on he was discharged and again became short of breath and right-sided chest pain and therefore went to [facility] and was found bilateral PE with right heart strain was admitted directly in PCU. EKG shows sinus tachycardia Patient still complaining of right-sided posterior lateral chest pain mainly on coughing and deep breathing. Has mild shortness of breath and cough with small tinge of blood, hemoptysis. Monitor shows sinus rhythm with PVCs Physical exam General: Alert, Oriented x3, Cooperative HEENT: Atraumatic, PERRLA, EOMI, Normocephalic Oral: No Gingival or Mucosal Lesions/ Ulcerations Neck: Supple, No JVD, Negative Carotid Bruits Lungs: Air entry diminished in bilateral lung bases. Mild expiratory wheezing. On 2 L of oxygen. Cardiovascular: Regular rate, Regular Rhythm, Normal S1, Normal S2, No murmurs Abdomen: Bowel Sounds Present, Soft, Non Tender, Non-Distended : No renal angle tenderness. No suprapubic tenderness. Extremities: No edema, Capillary Refill Less than 3 Seconds Skin: No rashes, No breakdown Musculoskeletal: No Tenderness to Palpation of Joints or Extremities Neurological: Cranial nerves II-XII grossly intact, Deep Tendon Reflexes 2+/4 and Symmetrical, Neuro grossly intact Psych/Mental Status: Normal Affect, Appropriate. Vitals/I&O's: Vital Signs Temp Pulse Resp BP Pulse Ox 98.4 F 87 18 124/77 H 95 05/16/20 11:10 05/16/20 11:10 05/16/20 11:10 05/16/20 11:10 05/16/20 11:10 Oxygen Flow Rate (L/min) 2 Oxygen Delivery Method Nasal Cannula Weight: 160 lb 0.889 oz Body Mass Index (BMI) 25.8 Intake and Output for Last 24 Hours 05/14/20 05/15/20 05/16/20 23:59 23:59 23:59 Intake Total 490 / 490 300 / 300 Output Total 700 / 700 1125 / 1125 Balance -210 / -210 -825 / -825 Laboratory Results 05/15/20 15:00: WBC 16.5 H, RBC 4.58 L, Hgb 13.0, Hct 39.6 L, MCV 86.5, MCH 28.4, MCHC 32.8, RDW Std Deviation 46.1 H, RDW Coeff of David 14.6, Plt Count 424, MPV 8.5 05/15/20 15:00: Sodium 134 L, Potassium 4.5, Chloride 103, Carbon Dioxide 26.0, Anion Gap 5, BUN 13, Creatinine 0.66 L, Estim Creat Clear Calc 59.37, Est GFR (MDRD) Af Amer 152, Est GFR (MDRD) Non-Af 126, BUN/Creatinine Ratio 19.7, Glucose 148 H, Calcium 9.5, Troponin I < 0.015 05/15/20 15:00: B-Natriuretic Peptide 11.5 05/15/20 17:49: Troponin I < 0.015 05/15/20 20:16: Troponin I < 0.015 05/16/20 06:22: WBC 21.4 H, RBC 4.48 L, Hgb 12.8 L, Hct 39.3 L, MCV 87.7, MCH 28.6, MCHC 32.6, RDW Std Deviation 46.4 H, RDW Coeff of David 14.4, Plt Count 583 H, MPV 8.3, Immature Gran % (Auto) 0.700, Neut % (Auto) 87.2 H, Lymph % (Auto) 6.1 L, [place] % (Auto) 6.0, Eos % (Auto) 0.0, Baso % (Auto) 0.0, Absolute Neuts (auto) 18.6 H, Absolute Lymphs (auto) 1.31, Nucleated RBC % 0 05/16/20 06:22: Sodium 134 L, Potassium 4.4, Chloride 101, Carbon Dioxide 25.0, Anion Gap 8, BUN 19 H, Creatinine 0.82, Estim Creat Clear Calc 72.40, Est GFR (MDRD) Af Amer 119, Est GFR (MDRD) Non-Af 99, BUN/Creatinine Ratio 23.3 H, Glucose 134 H, Calcium 9.0 05/16/20 11:00: COVID-19 (DAVID) Pending Current Medications Acetaminophen (Acetaminophen 325 Mg Tablet) 650 mg PO Q6H PRN PRN PRN Reason: Pain Score 1-3 /Temp>100.7 Last Admin: 05/16/20 11:11 Dose: 650 mg Documented by: Apixaban (Apixaban 5 Mg Tablet) 10 mg PO BID COUNT INCLUDES THE [facility] Last Admin: 05/16/20 08:50 Dose: 10 mg Documented by: Atorvastatin Calcium (Atorvastatin Calcium 40 Mg Tablet) 40 mg PO HS COUNT INCLUDES THE [facility] Last Admin: 05/15/20 21:23 Dose: 40 mg Documented by: Clopidogrel Bisulfate (Clopidogrel Bisulfate 75 Mg Tablet) 75 mg PO DAILY COUNT INCLUDES THE [facility] Last Admin: 05/16/20 08:50 Dose: 75 mg Documented by: Lisinopril (Lisinopril 10 Mg Tablet) 10 mg PO DAILY COUNT INCLUDES THE [facility] Last Admin: 05/16/20 08:50 Dose: 10 mg Documented by: Metoprolol Tartrate (Metoprolol Tartrate 25 Mg Tablet) 25 mg PO BID COUNT INCLUDES THE [facility] Last Admin: 05/16/20 08:49 Dose: 25 mg Documented by: Morphine Sulfate (Morphine 2 Mg/Ml Syringe) 1 - 2 mg IV Q4H PRN PRN PRN Reason: Pain Score 4-5 Morphine Sulfate (Morphine 2 Mg/Ml Syringe) 2 - 4 mg IV Q3H PRN PRN PRN Reason: Pain Score 6-10 Morphine Sulfate (Morphine 4 Mg/Ml Syringe) 2 - 4 mg IV Q3H PRN PRN PRN Reason: Pain Score 6-10 Nitroglycerin (Nitroglycerin (Inpatient Use) 0.4 Mg Tab.Subl) 0.4 mg SUBLINGUAL Q5M PRN PRN Reason: CARDIAC/CHEST PAIN Ondansetron HCl (Ondansetron 4 Mg/2 Ml Vial) 4 mg IV Q8H PRN PRN PRN Reason: NAUSEA/VOMITING Oxycodone HCl (Oxycodone 5 Mg Tablet) 5 mg PO Q4H PRN PRN PRN Reason: Pain Score 4-5 Prochlorperazine Edisylate (Prochlorperazine 10 Mg/2 Ml Vial) 10 mg IV Q6H PRN PRN PRN Reason: Nausea/Vomiting Sodium Chloride (0.9% Saline Lock 10 Ml Syringe) 10 - 40 ml IV UD PRN PRN Reason: SALINE FLUSH Last Admin: 05/16/20 08:51 Dose: 10 ml Documented by: STROKE Vital Signs/Narrative: Vital Signs Temp Pulse Resp BP Pulse Ox 05/16/20 11:10 98.4 F 87 18 124/77 H 95 05/16/20 08:50 94 05/16/20 08:49 88 150/88 H 05/16/20 08:47 98.8 F 88 18 150/88 H 94 Medical Necessity - Tobacco Use Smoking Status: Never smoker Assessment/Plan This 75-year-old question intermittent with history of shortness of breath and mild cough to be bilateral pulmonary embolism. 1. Bilateral submassive PE with right-sided heart strain: Currently admitted in PCU on telemetry. Patient has right-sided pleuritic chest pain. On 2 L of oxygen on therapeutic dose of Eliquis. 2D echo was done reported as EF 65%, normal tricuspid valve. Unable to estimate RVSP due to insufficient tricuspid regurgitant envelope. Serial troponin enzymes are negative. BNP normal. 2. Recent COVID 19 infection: Since patient had symptoms of cough and shortness of breath started on May 03, therefore 13th day of infection. Had already had remdesivir and Decadron. Liver test, LDH and CRP ordered. Repeat COVID-19 PCR. As patient already on Eliquis, INR will be to marker for worsening infection. # Hypertension: on metoprolol blood pressure is controlled # Hyperlipidemia: on atorvastatin #CAD s/p stents: on aspirin, statin, plavix, metoprolo and lisinopril; hols aspirin for now as he is on therapeutic eliquis DVT prophylaxis: not needed as he is on therapeutic dose of eliquis Inpatient E&M: 12592 [facility] Hosp L2
[2020-05-16 12:44] LABS: Probe Check PASS; Specimen Processing Control PASS
[2020-05-16 13:37] LABS: AST(SGOT) 30 U/L (15-37); Alanine Aminotransfer ALT/SGPT 145 U/L (16-61); Albumin, Serum 2.4 g/dL (3.2-5.0); Alkaline Phosphatase 235 U/L (45-117); LDH 398 U/L (87-241); Protein, Total 6.4 g/dL (6.4-8.2)
[2020-05-16] MEDS: Atorvastatin Calcium 40 MG Tablet PO (19:49)
[2020-05-16] MEDS: oxyCODONE 5 MG Tablet PO (22:23)
[2020-05-17] VITALS (16 sets, daily range): BP systolic 112–130; BP diastolic 68–79; PULSE 80–112; RESP 18–26; TEMP 36.6–37.2; O2SAT 92–95
[2020-05-17] MEDS: oxyCODONE 5 MG Tablet PO ×3 (06:29→20:04)
[2020-05-17 07:20] LABS: Absolute Lymphocyte Count 1.78 X10^3/uL (0.83-4.51); Absolute Neutrophil Count 13.7 X10^3/uL (2.0-7.7); Basophil# 0.02 X10^3/uL; Basophil% 0.1 % (0-1); Eosinophil# 0.03 X10^3/uL; Eosinophils% 0.2 % (0-5); Hematocrit 40.6 % (40-54); Hemoglobin 12.8 g/dL (13.0-16.5); Lymphocyte # 1.78 X10^3/ul (4.0); Lymphocyte % 10.6 % (19-41); Mean Corp Hgb Conc 31.5 g/dL (32-36); Mean Corpuscular Hgb 27.8 pg (27.0-32.0); Mean Corpuscular Volume 88.3 fL (80-94); Mean Platelet Vol. 8.4 fl (6.2-12.0); Monocyte# 1.25 X10^3/uL; Monocyte% 7.4 % (0-10); NRBC Flagged by Analyzer 0 % (0-5); Neutrophil # 13.67 X10^3/uL (2.7-7.7); Neutrophil % 81.1 % (47-70); Platelet Count 504 K/mm3 (150-450); RBC Distribution Width CV 14.6 % (11.6-14.6); RBC Distribution Width SD 47.1 fl (35.1-43.9); White Blood Count 16.9 K/mm3 (4.4-11.0)
[2020-05-17 07:48] LABS: ALB/GLOB Ratio 0.4 RATIO (0.9-2.4); AST(SGOT) 95 U/L (15-37); Alanine Aminotransfer ALT/SGPT 261 U/L (16-61); Albumin, Serum 2.2 g/dL (3.2-5.0); Alkaline Phosphatase 244 U/L (45-117); Anion Gap 6 (5-15); BUN 20 mg/dL (7-18); BUN/Creat Ratio 26.5 RATIO (10-20); Calcium,Total 9.2 mg/dL (8.5-10.1); Chloride 100 mmol/L (98-107); Creatinine, Serum 0.76 mg/dL (0.70-1.30); EST Glomerular Filtration Rate 108 mL/min (>60); Est Glom Filt Rate - Afr Amer 130 mL/min (>60); Estimated Creatinine Clearance 59.37 ml/min; Glucose 92 mg/dL (74-106); Potassium 4.4 mmol/L (3.5-5.1); Protein, Total 7.2 g/dL (6.4-8.2); Sodium Level 132 mmol/L (136-145)
[2020-05-17] MEDS: APIXABAN 5 MG TABLET 10 MG PO ×2 (08:25→20:04)
[2020-05-17] MEDS: Clopidogrel Bisulfate 75 MG Tablet PO (08:25)
[2020-05-17] MEDS: Metoprolol Tartrate 25 MG Tablet PO ×2 (08:25→20:05)
[2020-05-17] MEDS: Lisinopril 10 MG Tablet PO (08:26)
[2020-05-17] MEDS: Acetaminophen 325 MG Tablet 650 MG PO ×3 (08:26→22:24)
--- NOTE | 2020-05-17 09:43 | US_ITS ---
STUDY: ABDOMINAL ULTRASOUND - RIGHT UPPER QUADRANT REASON FOR VISIT: Male, 75 years old. Elevated LFTs. History of COVID 19 infection for 2 weeks. TECHNIQUE: Ultrasound evaluation of the right upper quadrant was performed with real-time and static castro-scale imaging. TECHNICAL QUALITY: Examination limited due to the bowel gas in patient?s condition. Patient unable to take deep breaths or to hold breath due to pulmonary disease. COMPARISON: None. FINDINGS: Liver: The liver measures 15.4 cm. There is normal echogenicity of the liver. The bile ducts are within normal limits. There is hepatic color flow. The direction of portal flow is hepatopetal. There is no demonstrated mass lesion. Gallbladder: Normal distended gallbladder. The gallbladder wall measures 2 mm. There is a negative sonographic Swift''s sign. There is no pericholecystic fluid. There are no gallstones. Common Bile Duct (C.B.D.): The common bile duct measures 4 mm. Pancreas: There is nonvisualization of the pancreas. Right Kidney: Normal size of the right kidney. The right kidney measures 10.0 cm. Normal renal cortex. The right cortex measures 1.0 cm. There is no demonstrated renal mass or cyst. There is no right hydronephrosis. US/Abdomen Limited IMPRESSION: 1. Limited study. The pancreas is not visualized. 2. Otherwise normal right upper quadrant abdominal ultrasound. Electronically Signed: Alexis Browning DO at 16:58 EST Tel [phone], Service support ,
--- NOTE | 2020-05-17 12:13 | PCM.PN.HOSP ---
Reason for Visit: Follow-up for bilateral PE with right-sided chest pain and acute hypoxic respiratory failure Objective: No fever or chills. Patient complained of right posterolateral chest pain especially on deep breathing. 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 On 4 L of oxygen. No tachypnea but looks mild short of breath. Patient had dark-colored brownish to black hemoptysis probably collected blood Physical exam General: Alert, Oriented x3, Cooperative HEENT: Atraumatic, PERRLA, EOMI, Normocephalic Oral: No Gingival or Mucosal Lesions/ Ulcerations Neck: Supple, No JVD, Negative Carotid Bruits Lungs: Air entry diminished in bilateral lung bases. Mild bilateral lung bases expiratory rhonchi. More short of breath and hypoxia. Tenderness present on right posterior lateral chest Cardiovascular: Regular rate, Regular Rhythm, Normal S1, Normal S2, No murmurs Abdomen: Bowel Sounds Present, Soft, Non Tender, Non-Distended. Liver not enlarged. No RUQ tenderness : No renal angle tenderness. No suprapubic tenderness. Extremities: No edema, Capillary Refill Less than 3 Seconds Skin: No rashes, No breakdown Musculoskeletal: No Tenderness to Palpation of Joints or Extremities Neurological: Cranial nerves II-XII grossly intact, Deep Tendon Reflexes 2+/4 and Symmetrical, Neuro grossly intact Psych/Mental Status: Normal Affect, Appropriate. Vitals/I&O's: Vital Signs Temp Pulse Resp BP Pulse Ox 98.8 F 106 H 18 127/76 H 94 05/17/20 08:17 05/17/20 08:25 05/17/20 08:17 05/17/20 08:25 05/17/20 08:30 Oxygen Flow Rate (L/min) 4 Oxygen Delivery Method Nasal Cannula Weight: 160 lb 0.889 oz Body Mass Index (BMI) 25.8 Intake and Output for Last 24 Hours 05/15/20 05/16/20 05/17/20 23:59 23:59 23:59 Intake Total 490 / 490 900 / 1220 440 / 440 Output Total 700 / 700 1125 / 1125 Balance -210 / -210 -225 / 95 440 / 440 Laboratory Results 05/16/20 06:22: Total Bilirubin 0.50, Direct Bilirubin 0.20, AST 30, ALT 145 H, Alkaline Phosphatase 235 H, Lactate Dehydrogenase 398 H, C-React Prot Ext Range 118.00 H, Total Protein 6.4, Albumin 2.4 L, Globulin 4.0 05/16/20 11:00: COVID-19 (DAVID) Positive 05/17/20 06:42: WBC 16.9 H, RBC 4.60, Hgb 12.8 L, Hct 40.6, MCV 88.3, MCH 27.8, MCHC 31.5 L, RDW Std Deviation 47.1 H, RDW Coeff of David 14.6, Plt Count 504 H, MPV 8.4, Immature Gran % (Auto) 0.600, Neut % (Auto) 81.1 H, Lymph % (Auto) 10.6 L, Cross % (Auto) 7.4, Eos % (Auto) 0.2, Baso % (Auto) 0.1, Absolute Neuts (auto) 13.7 H, Absolute Lymphs (auto) 1.78, Nucleated RBC % 0 05/17/20 06:42: Sodium 132 L, Potassium 4.4, Chloride 100, Carbon Dioxide 26.0, Anion Gap 6, BUN 20 H, Creatinine 0.76, Estim Creat Clear Calc 59.37, Est GFR (MDRD) Af Amer 130, Est GFR (MDRD) Non-Af 108, BUN/Creatinine Ratio 26.5 H, Glucose 92, Calcium 9.2, Total Bilirubin 0.50, AST 95 H, ALT 261 H, Alkaline Phosphatase 244 H, Total Protein 7.2, Albumin 2.2 L, Globulin 5.0 H, Albumin/Globulin Ratio 0.4 L Current Medications Acetaminophen (Acetaminophen 325 Mg Tablet) 650 mg PO Q6H PRN PRN PRN Reason: Pain Score 1-3 /Temp>100.7 Last Admin: 05/17/20 08:26 Dose: 650 mg Documented by: Apixaban (Apixaban 5 Mg Tablet) 10 mg PO BID [facility] Last Admin: 05/17/20 08:25 Dose: 10 mg Documented by: Atorvastatin Calcium (Atorvastatin Calcium 40 Mg Tablet) 40 mg PO HS [facility] Last Admin: 05/16/20 19:49 Dose: 40 mg Documented by: Clopidogrel Bisulfate (Clopidogrel Bisulfate 75 Mg Tablet) 75 mg PO DAILY [facility] Last Admin: 05/17/20 08:25 Dose: 75 mg Documented by: Lisinopril (Lisinopril 10 Mg Tablet) 10 mg PO DAILY [facility] Last Admin: 05/17/20 08:26 Dose: 10 mg Documented by: Metoprolol Tartrate (Metoprolol Tartrate 25 Mg Tablet) 25 mg PO BID [facility] Last Admin: 05/17/20 08:25 Dose: 25 mg Documented by: Morphine Sulfate (Morphine 2 Mg/Ml Syringe) 1 - 2 mg IV Q4H PRN PRN PRN Reason: Pain Score 4-5 Morphine Sulfate (Morphine 2 Mg/Ml Syringe) 2 - 4 mg IV Q3H PRN PRN PRN Reason: Pain Score 6-10 Morphine Sulfate (Morphine 4 Mg/Ml Syringe) 2 - 4 mg IV Q3H PRN PRN PRN Reason: Pain Score 6-10 Nitroglycerin (Nitroglycerin (Inpatient Use) 0.4 Mg Tab.Subl) 0.4 mg SUBLINGUAL Q5M PRN PRN Reason: CARDIAC/CHEST PAIN Ondansetron HCl (Ondansetron 4 Mg/2 Ml Vial) 4 mg IV Q8H PRN PRN PRN Reason: NAUSEA/VOMITING Oxycodone HCl (Oxycodone 5 Mg Tablet) 5 mg PO Q4H PRN PRN PRN Reason: Pain Score 4-5 Last Admin: 05/17/20 06:29 Dose: 5 mg Documented by: Prochlorperazine Edisylate (Prochlorperazine 10 Mg/2 Ml Vial) 10 mg IV Q6H PRN PRN PRN Reason: Nausea/Vomiting Sodium Chloride (0.9% Saline Lock 10 Ml Syringe) 10 - 40 ml IV UD PRN PRN Reason: SALINE FLUSH Last Admin: 05/16/20 08:51 Dose: 10 ml Documented by: STROKE Vital Signs/Narrative: Vital Signs Temp Pulse Resp BP Pulse Ox 05/17/20 08:30 94 05/17/20 08:25 106 H 127/76 H 05/17/20 08:17 98.8 F 106 H 18 127/76 H 94 Medical Necessity - Tobacco Use Smoking Status: Never smoker Assessment/Plan This 75-year-old question intermittent with history of shortness of breath and mild cough to be bilateral pulmonary embolism. 1. Acute hypoxic respiratory failure due to bilateral submassive PE with right-sided heart strain: Currently admitted in PCU on telemetry. Patient has right-sided pleuritic chest pain. On 2 L of oxygen on therapeutic dose of Eliquis. 2D echo was done reported as EF 65%, normal tricuspid valve. Unable to estimate RVSP due to insufficient tricuspid regurgitant envelope. Serial troponin enzymes are negative. BNP normal. 05/17: Continue Eliquis. Patient had mild hemoptysis probably collected blood. PEP and incentive spirometry for bronchopulmonary hygiene. On 4 L of oxygen. 2. Recent COVID 19 infection: Since patient had symptoms of cough and shortness of breath started on May 03, therefore 13th day of infection. Had already had remdesivir and Decadron and received convalescent plasma. Liver test, LDH and CRP ordered. Repeat COVID-19 PCR. As patient already on Eliquis, INR will be to marker for worsening infection. 05/17: Leukocytosis improving. H&H maintained. Thrombocytosis probably secondary to PE or COVID-19 infection. Increasing liver ALT and AST and alkaline phosphatase. Total bili normal. LDH and CRP elevated. Right upper quadrant sonogram ordered. Probably acute liver injury secondary to recent COVID-19 infection or DILI from medication. Patient said he also had erythromycin antibiotic they are probably Zithromax.Medical record from pulmonary and hospital requested. # Hypertension: on metoprolol blood pressure is controlled. # Hyperlipidemia: on atorvastatin #CAD s/p stents: on aspirin, statin, plavix, metoprolo and lisinopril; hols aspirin for now as he is on therapeutic eliquis DVT prophylaxis: not needed as he is on therapeutic dose of eliquis Inpatient E&M: [id number] [facility] Hosp L2
[2020-05-17] MEDS: 0.9% Saline Lock 10 ML Syringe IV (20:06)
[2020-05-17] MEDS: Morphine 2 MG/ML Syringe IV (20:15)
[2020-05-18] VITALS (15 sets, daily range): BP systolic 81–130; BP diastolic 53–82; PULSE 77–153; RESP 16–26; TEMP 36.4–36.9; O2SAT 87–96
[2020-05-18] MEDS: oxyCODONE 5 MG Tablet PO ×3 (00:30→14:32)
[2020-05-18 06:52] LABS: Absolute Neutrophil Count 12.3 X10^3/uL (2.0-7.7); Basophil# 0.02 X10^3/uL; Basophil% 0.1 % (0-1); Eosinophil# 0.26 X10^3/uL; Eosinophils% 1.7 % (0-5); Hematocrit 40.2 % (40-54); Hemoglobin 12.6 g/dL (13.0-16.5); Lymphocyte % 9.2 % (19-41); Mean Corp Hgb Conc 31.3 g/dL (32-36); Mean Corpuscular Hgb 28.3 pg (27.0-32.0); Mean Corpuscular Volume 90.3 fL (80-94); Mean Platelet Vol. 8.3 fl (6.2-12.0); Monocyte# 1.12 X10^3/uL; Monocyte% 7.4 % (0-10); NRBC Flagged by Analyzer 0 % (0-5); Neutrophil % 80.8 % (47-70); Platelet Count 401 K/mm3 (150-450); RBC Distribution Width CV 15.1 % (11.6-14.6); RBC Distribution Width SD 49.8 fl (35.1-43.9); Red Blood Count 4.45 M/mm3 (4.6-6.2); White Blood Count 15.2 K/mm3 (4.4-11.0)
[2020-05-18 07:33] LABS: ALB/GLOB Ratio 0.5 RATIO (0.9-2.4); AST(SGOT) 40 U/L (15-37); Alanine Aminotransfer ALT/SGPT 181 U/L (16-61); Alkaline Phosphatase 250 U/L (45-117); Anion Gap 6 (5-15); BUN 32 mg/dL (7-18); Calcium,Total 8.8 mg/dL (8.5-10.1); Chloride 102 mmol/L (98-107); Creatinine, Serum 0.97 mg/dL (0.70-1.30); EST Glomerular Filtration Rate 81 mL/min (>60); Est Glom Filt Rate - Afr Amer 98 mL/min (>60); Estimated Creatinine Clearance 61.21 ml/min; Globulin 3.9 g/dL (2.2-4.2); Glucose 98 mg/dL (74-106); Potassium 4.9 mmol/L (3.5-5.1); Protein, Total 5.9 g/dL (6.4-8.2); Sodium Level 134 mmol/L (136-145)
--- NOTE | 2020-05-18 07:53 | CPS ---
PEP AND INCENTIVE STARTED BY NURSING
[2020-05-18] MEDS: Acetaminophen 325 MG Tablet 650 MG PO ×2 (08:14→18:17)
--- NOTE | 2020-05-18 08:14 | CPS ---
started by nursing
[2020-05-18] MEDS: APIXABAN 5 MG TABLET 10 MG PO ×2 (08:15→20:54)
[2020-05-18] MEDS: Metoprolol Tartrate 25 MG Tablet PO ×2 (08:15→16:32)
[2020-05-18] MEDS: Lisinopril 10 MG Tablet PO ×2 (08:16)
[2020-05-18] MEDS: Clopidogrel Bisulfate 75 MG Tablet PO (08:16)
--- NOTE | 2020-05-18 11:23 | PCM.DC ---
You will use the following diet at home:: Cardiac Your food should be the consistency of: Regular Weight Bearing Status: Weight bearing as tolerated Call your doctor if you observe: Fever of 101 or Higher, Numbness or Tingling, Change in Color, Inability to urinate, Inability to have a bowel movement, Shortness of breath, Dizziness, Fainting spells, Swelling in the ankles, Chest pain, Prolonged hiccoughing, Uncontrolled pain Additional Instructions: Maintain quarantine/self isolation until 05/24/2020 at home. Allergies/Adverse Reactions: Allergies Penicillins Allergy (Verified 02/03/20 10:05) Rash Medications to take at Discharge Clopidogrel Bisulfate [Clopidogrel] 75 mg PO DAILY 05/15/20 Metoprolol Tartrate 25 mg PO BID 05/15/20 Apixaban [Eliquis] 10 mg PO BID #70 tab 05/18/20 Atorvastatin Calcium [Lipitor] 40 mg PO QDAY #0 05/18/20 Famotidine 20 mg PO BID #20 tab 05/18/20 Guaifenesin [Mucinex] 1,200 mg PO BID #14 tab.er.12h 05/18/20 Ibuprofen [Motrin] 600 mg PO Q8H PRN PRN #15 tab 05/18/20 Lisinopril [Prinivil] 10 mg PO DAILY #0 05/18/20 The following prescriptions were given: Apixaban [Eliquis] 10 mg PO BID #70 tab Transmission Status: Pending to [facility] Famotidine 20 mg PO BID #20 tab Transmission Status: Pending to [facility] Ibuprofen [Motrin] 600 mg PO Q8H PRN PRN #15 tab PRN Reason: pleuritic chest pain Transmission Status: Pending to [facility] Guaifenesin [Mucinex] 1,200 mg PO BID #14 tab.er.12h Transmission Status: Pending to [facility] Primary Care Physician: Tanner Li MD [Primary Care Provider] - Please follow up with your Primary Care Physician in: in 1-2 week, virtual visit. Follow up CMP in 1 week with PCP Test Results: Test results from this visit will be discussed in further detail at your follow-up appointment, if applicable. Please Follow Up With: Bassam Hall DO When: Submassive PE in 4 week, mediastinal LN
[2020-05-18] MEDS: guaiFENesin 1,200 MG Tablet 1200 MG PO (14:32)
--- NOTE | 2020-05-18 14:53 | PCM.PN.HOSP ---
Reason for Visit: Follow-up for bilateral PE with history of recent COVID-19 infection Objective: Patient 90% on room air and 87% on ambulation on room air and 92% on 2 L of oxygen. No fever. Patient has paroxysms of cough, chest congestion with mild shortness of breath. Right-sided chest pain mainly pleuritic chest pain Physical exam General: Alert, Oriented x3, Cooperative HEENT: Atraumatic, PERRLA, EOMI, Normocephalic Oral: No Gingival or Mucosal Lesions/ Ulcerations Neck: Supple, No JVD, Negative Carotid Bruits. Tenderness on the right posterior lateral chest wall Lungs: Air entry diminished in bilateral lung bases. No crepitation/rhonchi. Mild hypoxia Cardiovascular: Regular rate, Regular Rhythm, Normal S1, Normal S2, No murmurs Abdomen: Bowel Sounds Present, Soft, Non Tender, Non-Distended : No renal angle tenderness. No suprapubic tenderness. Extremities: No edema, Capillary Refill Less than 3 Seconds Skin: No rashes, No breakdown Musculoskeletal: No Tenderness to Palpation of Joints or Extremities Neurological: Cranial nerves II-XII grossly intact, Deep Tendon Reflexes 2+/4 and Symmetrical, Neuro grossly intact Psych/Mental Status: Normal Affect, Appropriate. Vitals/I&O's: Vital Signs Temp Pulse Resp BP Pulse Ox 97.7 F L 77 18 113/67 94 05/18/20 14:31 05/18/20 14:31 05/18/20 14:31 05/18/20 14:31 05/18/20 14:31 Oxygen Flow Rate (L/min) [ 2 AMBULATION with Oxygen] Oxygen Flow Rate (L/min) 2 Oxygen Delivery Method Nasal Cannula Weight: 160 lb 0.889 oz Body Mass Index (BMI) 25.8 Intake and Output for Last 24 Hours 05/16/20 05/17/20 05/18/20 23:59 23:59 23:59 Intake Total 900 / 1220 1180 / 1180 1040 / 1040 Output Total 1125 / 1125 750 / 750 300 / 300 Balance -225 / 95 430 / 430 740 / 740 Laboratory Results 05/18/20 06:24: WBC 15.2 H, RBC 4.45 L, Hgb 12.6 L, Hct 40.2, MCV 90.3, MCH 28.3, MCHC 31.3 L, RDW Std Deviation 49.8 H, RDW Coeff of David 15.1 H, Plt Count 401, MPV 8.3, Immature Gran % (Auto) 0.800, Neut % (Auto) 80.8 H, Lymph % (Auto) 9.2 L, [place] % (Auto) 7.4, Eos % (Auto) 1.7, Baso % (Auto) 0.1, Absolute Neuts (auto) 12.3 H, Absolute Lymphs (auto) 1.40, Nucleated RBC % 0 05/18/20 06:24: Sodium 134 L, Potassium 4.9, Chloride 102, Carbon Dioxide 26.0, Anion Gap 6, BUN 32 H, Creatinine 0.97, Estim Creat Clear Calc 61.21, Est GFR (MDRD) Af Amer 98, Est GFR (MDRD) Non-Af 81, BUN/Creatinine Ratio 33.0 H, Glucose 98, Calcium 8.8, Total Bilirubin 0.60, AST 40 H, ALT 181 H, Alkaline Phosphatase 250 H, Total Protein 5.9 L, Albumin 2.0 L, Globulin 3.9, Albumin/Globulin Ratio 0.5 L Current Medications Acetaminophen (Acetaminophen 325 Mg Tablet) 650 mg PO Q6H PRN PRN PRN Reason: Pain Score 1-3 /Temp>100.7 Last Admin: 05/18/20 08:14 Dose: 650 mg Documented by: Albuterol Sulfate (Albuterol Ih 8.5 Gm (Proair) Inhaler (200 Puffs)) 2 puff INHALATION Q4H PRN PRN PRN Reason: sob Apixaban (Apixaban 5 Mg Tablet) 10 mg PO BID [facility] Last Admin: 05/18/20 08:15 Dose: 10 mg Documented by: Famotidine (Famotidine 20 Mg Tablet) 20 mg PO BID [facility] Guaifenesin (Guaifenesin 1,200 Mg Tablet) 1,200 mg PO BID [facility] Last Admin: 05/18/20 14:32 Dose: 1,200 mg Documented by: Ibuprofen (Ibuprofen 400 Mg Tablet) 600 mg PO Q8 [facility] Lisinopril (Lisinopril 10 Mg Tablet) 10 mg PO DAILY [facility] Last Admin: 05/18/20 08:16 Dose: 10 mg Documented by: Metoprolol Tartrate (Metoprolol Tartrate 25 Mg Tablet) 25 mg PO BID [facility] Last Admin: 05/18/20 08:15 Dose: 25 mg Documented by: Morphine Sulfate (Morphine 4 Mg/Ml Syringe) 2 - 4 mg IV Q3H PRN PRN PRN Reason: Pain Score 6-10 Nitroglycerin (Nitroglycerin (Inpatient Use) 0.4 Mg Tab.Subl) 0.4 mg SUBLINGUAL Q5M PRN PRN Reason: CARDIAC/CHEST PAIN Ondansetron HCl (Ondansetron 4 Mg/2 Ml Vial) 4 mg IV Q8H PRN PRN PRN Reason: NAUSEA/VOMITING Oxycodone HCl (Oxycodone 5 Mg Tablet) 5 mg PO Q4H PRN PRN PRN Reason: Pain Score 4-5 Last Admin: 05/18/20 14:32 Dose: 5 mg Documented by: Prochlorperazine Edisylate (Prochlorperazine 10 Mg/2 Ml Vial) 10 mg IV Q6H PRN PRN PRN Reason: Nausea/Vomiting Sodium Chloride (0.9% Saline Lock 10 Ml Syringe) 10 - 40 ml IV UD PRN PRN Reason: SALINE FLUSH Last Admin: 05/17/20 20:06 Dose: 10 ml Documented by: Sodium Chloride (Sodium Chloride 0.65% 1 [place].Btl) 2 spray NASAL BID [facility] STROKE Vital Signs/Narrative: Vital Signs Temp Pulse Resp BP Pulse Ox Pulse Ox Pulse Ox 05/18/20 14:31 97.7 F L 77 18 113/67 94 05/18/20 12:07 87 93 Pulse Ox 05/18/20 14:31 05/18/20 12:07 90 Medical Necessity - Tobacco Use Smoking Status: Never smoker Assessment/Plan This 75-year-old question intermittent with history of shortness of breath and mild cough to be bilateral pulmonary embolism. 1. Acute hypoxic respiratory failure due to bilateral submassive PE with right-sided heart strain: Currently admitted in PCU on telemetry. Patient has right-sided pleuritic chest pain. On 2 L of oxygen on therapeutic dose of Eliquis. 2D echo was done reported as EF 65%, normal tricuspid valve. Unable to estimate RVSP due to insufficient tricuspid regurgitant envelope. Serial troponin enzymes are negative. BNP normal. 05/17: Continue Eliquis. Patient had mild hemoptysis probably collected blood. PEP and incentive spirometry for bronchopulmonary hygiene. On 4 L of oxygen. 05/18: CT chest discussed with Dr. Hall. States RV LV ratio 0.94 with mild flattening of interventricular septum. Nodule at the pleural surface at left anterior thorax measuring 0.6 x 0.9 x 1.3 cm pleural surface. Mediastinal lymphadenopathy. Patient denies history of smoking. Dr. Hall agrees for follow-up for pulmonary clinic. Patient did not had indication for thrombolytics. 2. Recent COVID 19 infection: Since patient had symptoms of cough and shortness of breath started on May 03, therefore 13th day of infection. Had already had remdesivir and Decadron and received convalescent plasma. 05/17: Leukocytosis improving. H&H maintained. Thrombocytosis probably secondary to PE or COVID-19 infection. Increasing liver ALT and AST and alkaline phosphatase. Total bili normal. LDH and CRP elevated. Right upper quadrant sonogram ordered. Probably acute liver injury secondary to recent COVID-19 infection or DILI from medication. Patient said he also had erythromycin antibiotic they are probably Zithromax.Medical record from pulmonary and hospital requested. 05/18: Medical record from hospitalization from 05 05-05/09 reviewed. Patient had elevated transaminases, alkaline phosphatase and leukocytosis at that time. Patient was discharged on prophylactic dose of Eliquis and was treated on IV heparin as prophylaxis for DVT. Patient has improvement on liver transaminases and alkaline phosphatase. Total bili 0.6. Mild leukocytosis. Patient is still has significant cough, chest congestion and mild shortness of breath. On Mucinex, albuterol as needed, incentive spirometry and PEP. Patient did not want to go home mainly because of shortness of breath, chest pain chest congestion and cough. # Hypertension: on metoprolol blood pressure is controlled. # Hyperlipidemia: on atorvastatin #CAD s/p stents: on aspirin, statin, plavix, metoprolo and lisinopril; hols aspirin for now as he is on therapeutic eliquis DVT prophylaxis: not needed as he is on therapeutic dose of eliquis Laboratory Results 05/18/20 06:24: WBC 15.2 H, RBC 4.45 L, Hgb 12.6 L, Hct 40.2, MCV 90.3, MCH 28.3, MCHC 31.3 L, RDW Std Deviation 49.8 H, RDW Coeff of David 15.1 H, Plt Count 401, MPV 8.3, Immature Gran % (Auto) 0.800, Neut % (Auto) 80.8 H, Lymph % (Auto) 9.2 L, [place] % (Auto) 7.4, Eos % (Auto) 1.7, Baso % (Auto) 0.1, Absolute Neuts (auto) 12.3 H, Absolute Lymphs (auto) 1.40, Nucleated RBC % 0 05/18/20 06:24: Sodium 134 L, Potassium 4.9, Chloride 102, Carbon Dioxide 26.0, Anion Gap 6, BUN 32 H, Creatinine 0.97, Estim Creat Clear Calc 61.21, Est GFR (MDRD) Af Amer 98, Est GFR (MDRD) Non-Af 81, BUN/Creatinine Ratio 33.0 H, Glucose 98, Calcium 8.8, Total Bilirubin 0.60, AST 40 H, ALT 181 H, Alkaline Phosphatase 250 H, Total Protein 5.9 L, Albumin 2.0 L, Globulin 3.9, Albumin/Globulin Ratio 0.5 L Inpatient E&M: [id number] Subs Hosp L2
[2020-05-18] MEDS: dilTIAZem 25 MG/5 ML Vial 15 MG IV BOLUS ×2 (16:24→18:11)
[2020-05-18] MEDS: Ibuprofen 600 MG Tablet PO ×2 (16:24→20:54)
[2020-05-18] MEDS: Sodium Chloride 0.65% 1 SPRAY SPRAY.BTL 2 SPRAY NASAL (20:53)
[2020-05-18] MEDS: Famotidine 20 MG Tablet PO (20:54)
[2020-05-18] MEDS: Metoprolol Tartrate 50 MG Tablet PO (20:57)
[2020-05-19] VITALS (9 sets, daily range): BP systolic 92–118; BP diastolic 64–74; PULSE 79–99; RESP 17–22; TEMP 36.4–37.2; O2SAT 93–95
[2020-05-19] MEDS: 0.9% Saline Lock 10 ML Syringe IV ×3 (00:31→04:08)
[2020-05-19] MEDS: oxyCODONE 5 MG Tablet PO (04:14)
[2020-05-19] MEDS: Ibuprofen 600 MG Tablet PO ×2 (06:48→15:39)
[2020-05-19 07:04] LABS: Absolute Lymphocyte Count 1.06 X10^3/uL (0.83-4.51); Absolute Neutrophil Count 12.4 X10^3/uL (2.0-7.7); Basophil# 0.03 X10^3/uL; Basophil% 0.2 % (0-1); Eosinophil# 0.31 X10^3/uL; Eosinophils% 2.1 % (0-5); Hematocrit 36.6 % (40-54); Hemoglobin 11.7 g/dL (13.0-16.5); Lymphocyte # 1.06 X10^3/ul (4.0); Lymphocyte % 7.1 % (19-41); Mean Corpuscular Hgb 28.4 pg (27.0-32.0); Mean Corpuscular Volume 88.8 fL (80-94); Mean Platelet Vol. 8.3 fl (6.2-12.0); Monocyte# 0.97 X10^3/uL; Monocyte% 6.5 % (0-10); NRBC Flagged by Analyzer 0 % (0-5); Neutrophil # 12.42 X10^3/uL (2.7-7.7); Neutrophil % 83.1 % (47-70); Platelet Count 338 K/mm3 (150-450); RBC Distribution Width CV 14.6 % (11.6-14.6); RBC Distribution Width SD 46.8 fl (35.1-43.9); Red Blood Count 4.12 M/mm3 (4.6-6.2); White Blood Count 14.9 K/mm3 (4.4-11.0)
[2020-05-19 07:39] LABS: ALB/GLOB Ratio 0.4 RATIO (0.9-2.4); AST(SGOT) 40 U/L (15-37); Alanine Aminotransfer ALT/SGPT 137 U/L (16-61); Albumin, Serum 1.6 g/dL (3.2-5.0); Alkaline Phosphatase 264 U/L (45-117); Anion Gap 6 (5-15); BUN 31 mg/dL (7-18); BUN/Creat Ratio 33.3 RATIO (10-20); Calcium,Total 8.7 mg/dL (8.5-10.1); Chloride 102 mmol/L (98-107); Creatinine, Serum 0.93 mg/dL (0.70-1.30); EST Glomerular Filtration Rate 84 mL/min (>60); Est Glom Filt Rate - Afr Amer 102 mL/min (>60); Estimated Creatinine Clearance 63.84 ml/min; Globulin 4.5 g/dL (2.2-4.2); Glucose 102 mg/dL (74-106); Potassium 4.5 mmol/L (3.5-5.1); Protein, Total 6.1 g/dL (6.4-8.2); Sodium Level 133 mmol/L (136-145)
[2020-05-19] MEDS: Sodium Chloride 0.65% 1 SPRAY SPRAY.BTL 2 SPRAY NASAL (08:37)
[2020-05-19] MEDS: APIXABAN 5 MG TABLET 10 MG PO (08:37)
[2020-05-19] MEDS: Metoprolol Tartrate 50 MG Tablet PO (08:37)
--- NOTE | 2020-05-19 11:42 | PCM.DC ---
You will use the following diet at home:: Cardiac Your food should be the consistency of: Regular Discharge Activity: May Not Drive Weight Bearing Status: Weight bearing as tolerated Call your doctor if you observe: Fever of 101 or Higher, Numbness or Tingling, Change in Color, Inability to urinate, Inability to have a bowel movement, Shortness of breath, Dizziness, Fainting spells, Swelling in the ankles, Chest pain, Prolonged hiccoughing, Uncontrolled pain Additional Instructions: Maintain quarantine/self isolation until 05/24/2020 at home. Allergies/Adverse Reactions: Allergies Penicillins Allergy (Verified 02/03/20 10:05) Rash Medications to take at Discharge Clopidogrel Bisulfate [Clopidogrel] 75 mg PO DAILY 05/15/20 Apixaban [Eliquis] 10 mg PO BID #70 tab 05/18/20 Atorvastatin Calcium [Lipitor] 40 mg PO QDAY #0 05/18/20 Famotidine 20 mg PO BID #20 tab 05/18/20 Guaifenesin [Mucinex] 1,200 mg PO BID #14 tab.er.12h 05/18/20 Ibuprofen [Motrin] 600 mg PO Q8H PRN PRN #15 tab 05/18/20 Lisinopril [Prinivil] 10 mg PO DAILY #0 05/18/20 Albuterol IH (ProAir) [Proair Hfa] 2 puff INHALATION Q4H PRN PRN #1 inhaler 05/19/20 Metoprolol Tartrate [Lopressor (beta ayad)] 50 mg PO BID #60 tab 05/19/20 The following prescriptions were given: Apixaban [Eliquis] 10 mg PO BID #70 tab Transmission Status: Received by [facility] Famotidine 20 mg PO BID #20 tab Transmission Status: Received by [facility] Metoprolol Tartrate [Lopressor (beta ayad)] 50 mg PO BID #60 tab Transmission Status: Pending to [facility] Ibuprofen [Motrin] 600 mg PO Q8H PRN PRN #15 tab PRN Reason: pleuritic chest pain Transmission Status: Received by [facility] Guaifenesin [Mucinex] 1,200 mg PO BID #14 tab.er.12h Transmission Status: Received by [facility] Albuterol IH (ProAir) [Proair Hfa] 2 puff INHALATION Q4H PRN PRN #1 inhaler PRN Reason: Sob &/Or Wheezing Transmission Status: Received by [facility] Primary Care Physician: Tanner Li MD [Primary Care Provider] - Please follow up with your Primary Care Physician in: in 1-2 week, virtual visit. Follow up CMP in 1 week with PCP Test Results: Test results from this visit will be discussed in further detail at your follow-up appointment, if applicable. Please Follow Up With: Bassam Hall, When: Submassive PE in 4 week, mediastinal LN
--- NOTE | 2020-05-19 11:44 | PCM.DC.SUM ---
Discharge Date and Diagnosis Date of Admission: 05/15/20 Date of Discharge: 05/18/20 - Secondary Discharge Diagnosis Chronic Problems: Chronic Problems (Last Reviewed 02/03/20 @ 10:[address] Jag Bailey MD) Atherosclerosis of coronary artery of [place] heart without angina pectoris (Chronic) History of coronary artery stent placement (Chronic 10/03/17) MINA-RCA 3.5 X 28 MM Taxus 02/25/2006 MINA-Mid CX 2.5 x 13 mm and 2.58 mm Cypher 03/10/2006; [id number] RCA w/ 3.0 x 38 Promus Synergy stent 10/03/2017 Essential (primary) hypertension (Chronic) Hyperlipidemia (Chronic) Hospital Course and Treatment Summary of Care Provided: [] This 75-year-old question intermittent with history of shortness of breath and mild cough to be bilateral pulmonary embolism. 1. Acute hypoxic respiratory failure due to bilateral submassive PE with right-sided heart strain: Currently admitted in PCU on telemetry. Patient has right-sided pleuritic chest pain. On 2 L of oxygen on therapeutic dose of Eliquis. 2D echo was done reported as EF 65%, normal tricuspid valve. Unable to estimate RVSP due to insufficient tricuspid regurgitant envelope. Serial troponin enzymes are negative. BNP normal. Patient had mild hemoptysis probably collected blood. CT chest discussed with Dr. Hall. States RV LV ratio 0.94 with mild flattening of interventricular septum. Nodule at the pleural surface at left anterior thorax measuring 0.6 x 0.9 x 1.3 cm pleural surface. Mediastinal lymphadenopathy. Patient denies history of smoking. Dr. Hall agrees for follow-up for pulmonary clinic. Patient did not had indication for thrombolytics. Patient hypoxia improved with PEP and incentive spirometry and currently pulse ox 94% on room air. New onset A. fib probably due to submassive PE or possible COVID-19 infection. Patient converted to sinus rhythm after 2 doses of diltiazem 15 mg IV. Metoprolol dose increased to 50 mg p.o. twice daily with instruction to hold if heart rate less than 60/min and if is persistently low decreased to 25 mg p.o. twice daily in consultation with PCP. 2. Recent COVID 19 infection: Since patient had symptoms of cough and shortness of breath started on May 03, therefore 13th day of infection. Had already had remdesivir and Decadron and received convalescent plasma. Patient had elevated ALT AST alkaline phosphatase and leukocytosis, thrombocytosis secondary to recent COVID-19 infection. Probably acute liver injury secondary to recent COVID-19 infection. Medical record from hospitalization from 05 05-05/09 reviewed. Patient had elevated transaminases, alkaline phosphatase and leukocytosis at that time. Patient was discharged on prophylactic dose of Eliquis and was treated on IV heparin as prophylaxis for DVT. Patient has improvement on liver transaminases and alkaline phosphatase, leukocytosis and thrombocytosis. Total bili 0.6. Platelet count today normal, 3 and 38,000. # Hypertension: Blood pressure is on lower side. # Hyperlipidemia: on atorvastatin #CAD s/p stents: on aspirin, statin, plavix, metoprolo and lisinopril; hols aspirin for now as he is on therapeutic eliquis DVT prophylaxis: not needed as he is on therapeutic dose of eliquis Discharge medication reconciliation done. Discharge follow-up instructions completed. Discharge process discussed with the patient and all questions were answered to patient's satisfaction. Advised to follow-up with PCP. Patient advised to continue Eliquis for 6-month. Follow-up in pulmonary clinic with Dr. Hall. Total time spent, exact 35 minutes on discharge meds reconciliation, examination, coordination of care with nurses and ancillary staff, review of imaging and blood test and discussion with the patient on follow-up instructions Objective: Patient A. fib resolved and converted to sinus rhythm around 4:00 in the morning. He received diltiazem 15 mg IV x2 yesterday. Currently he has mild cough mainly dry and chest congestion. Patient said he felt a fever irregular heartbeat just after taking Mucinex and attributes to it. I tried to reassure him that Mucinex does not have side effect of A. fib and mainly complication of submassive PE or may be remote COVID-19 infection. Afebrile. Heart rate is controlled in sinus rhythm 80s. Pulse ox 95% on room air. Does not need oxygen Physical exam General: Alert, Oriented x3, Cooperative HEENT: Atraumatic, PERRLA, EOMI, Normocephalic Oral: No Gingival or Mucosal Lesions/ Ulcerations Neck: Supple, No JVD, Negative Carotid Bruits. Mild tenderness on the right posterior lateral chest wall Lungs: Air entry diminished in bilateral lung bases. No crepitation/rhonchi. Mild hypoxia Cardiovascular: Regular rate, Regular Rhythm, Normal S1, Normal S2, No murmurs Abdomen: Bowel Sounds Present, Soft, Non Tender, Non-Distended : No renal angle tenderness. No suprapubic tenderness. Extremities: No edema, Capillary Refill Less than 3 Seconds Skin: No rashes, No breakdown Musculoskeletal: No Tenderness to Palpation of Joints or Extremities Neurological: Cranial nerves II-XII grossly intact, Deep Tendon Reflexes 2+/4 and Symmetrical, Neuro grossly intact Psych/Mental Status: Normal Affect, Appropriate. - Physical Exam Vitals/I&O's: Vital Signs Temp Pulse Resp BP Pulse Ox 98.4 F 99 18 103/63 93 05/18/20 08:09 05/18/20 08:15 05/18/20 08:09 05/18/20 08:15 05/18/20 08:09 Oxygen Flow Rate (L/min) 2 Oxygen Delivery Method Nasal Cannula Weight: 160 lb 0.889 oz Body Mass Index (BMI) 25.8 Intake and Output for Last 24 Hours 05/16/20 05/17/20 05/18/20 23:59 23:59 23:59 Intake Total 900 / 1220 1180 / 1180 800 / 800 Output Total 1125 / 1125 750 / 750 300 / 300 Balance -225 / 95 430 / 430 500 / 500 Laboratory Results 05/18/20 06:24: WBC 15.2 H, RBC 4.45 L, Hgb 12.6 L, Hct 40.2, MCV 90.3, MCH 28.3, MCHC 31.3 L, RDW Std Deviation 49.8 H, RDW Coeff of David 15.1 H, Plt Count 401, MPV 8.3, Immature Gran % (Auto) 0.800, Neut % (Auto) 80.8 H, Lymph % (Auto) 9.2 L, [place]kin % (Auto) 7.4, Eos % (Auto) 1.7, Baso % (Auto) 0.1, Absolute Neuts (auto) 12.3 H, Absolute Lymphs (auto) 1.40, Nucleated RBC % 0 05/18/20 06:24: Sodium 134 L, Potassium 4.9, Chloride 102, Carbon Dioxide 26.0, Anion Gap 6, BUN 32 H, Creatinine 0.97, Estim Creat Clear Calc 61.21, Est GFR (MDRD) Af Amer 98, Est GFR (MDRD) Non-Af 81, BUN/Creatinine Ratio 33.0 H, Glucose 98, Calcium 8.8, Total Bilirubin 0.60, AST 40 H, ALT 181 H, Alkaline Phosphatase 250 H, Total Protein 5.9 L, Albumin 2.0 L, Globulin 3.9, Albumin/Globulin Ratio 0.5 L Current Medications Acetaminophen (Acetaminophen 325 Mg Tablet) 650 mg PO Q6H PRN PRN PRN Reason: Pain Score 1-3 /Temp>100.7 Last Admin: 05/18/20 08:14 Dose: 650 mg Documented by: Apixaban (Apixaban 5 Mg Tablet) 10 mg PO BID [facility] Last Admin: 05/18/20 08:15 Dose: 10 mg Documented by: Clopidogrel Bisulfate (Clopidogrel Bisulfate 75 Mg Tablet) 75 mg PO DAILY [facility] Last Admin: 05/18/20 08:16 Dose: 75 mg Documented by: Lisinopril (Lisinopril 10 Mg Tablet) 10 mg PO DAILY [facility] Last Admin: 05/18/20 08:16 Dose: 10 mg Documented by: Metoprolol Tartrate (Metoprolol Tartrate 25 Mg Tablet) 25 mg PO BID [facility] Last Admin: 05/18/20 08:15 Dose: 25 mg Documented by: Morphine Sulfate (Morphine 4 Mg/Ml Syringe) 2 - 4 mg IV Q3H PRN PRN PRN Reason: Pain Score 6-10 Nitroglycerin (Nitroglycerin (Inpatient Use) 0.4 Mg Tab.Subl) 0.4 mg SUBLINGUAL Q5M PRN PRN Reason: CARDIAC/CHEST PAIN Ondansetron HCl (Ondansetron 4 Mg/2 Ml Vial) 4 mg IV Q8H PRN PRN PRN Reason: NAUSEA/VOMITING Oxycodone HCl (Oxycodone 5 Mg Tablet) 5 mg PO Q4H PRN PRN PRN Reason: Pain Score 4-5 Last Admin: 05/18/20 05:32 Dose: 5 mg Documented by: Prochlorperazine Edisylate (Prochlorperazine 10 Mg/2 Ml Vial) 10 mg IV Q6H PRN PRN PRN Reason: Nausea/Vomiting Sodium Chloride (0.9% Saline Lock 10 Ml Syringe) 10 - 40 ml IV UD PRN PRN Reason: SALINE FLUSH Last Admin: 05/17/20 20:06 Dose: 10 ml Documented by: Weight Bearing Status: Weight bearing as tolerated Call your doctor if you observe: Fever of 101 or Higher, Numbness or Tingling, Change in Color, Inability to urinate, Inability to have a bowel movement, Shortness of breath, Dizziness, Fainting spells, Swelling in the ankles, Chest pain, Prolonged hiccoughing, Uncontrolled pain Home Medications: Medications to take at Discharge Clopidogrel Bisulfate [Clopidogrel] 75 mg PO DAILY 05/15/20 Apixaban [Eliquis] 10 mg PO BID #70 tab 05/18/20 Atorvastatin Calcium [Lipitor] 40 mg PO QDAY #0 05/18/20 Famotidine 20 mg PO BID #20 tab 05/18/20 Guaifenesin [Mucinex] 1,200 mg PO BID #14 tab.er.12h 05/18/20 Ibuprofen [Motrin] 600 mg PO Q8H PRN PRN #15 tab 05/18/20 Lisinopril [Prinivil] 10 mg PO DAILY #0 05/18/20 Albuterol IH (ProAir) [Proair Hfa] 2 puff INHALATION Q4H PRN PRN #1 inhaler 05/19/20 Metoprolol Tartrate [Lopressor (beta ayad)] 50 mg PO BID #60 tab 05/19/20 Following Prescriptions Were Given to Patient: Apixaban [Eliquis] 10 mg PO BID #70 tab Transmission Status: Received by [facility] Famotidine 20 mg PO BID #20 tab Transmission Status: Received by [facility] Metoprolol Tartrate [Lopressor (beta ayad)] 50 mg PO BID #60 tab Transmission Status: Received by [facility] Ibuprofen [Motrin] 600 mg PO Q8H PRN PRN #15 tab PRN Reason: pleuritic chest pain Transmission Status: Received by [facility] Guaifenesin [Mucinex] 1,200 mg PO BID #14 tab.er.12h Transmission Status: Received by [facility] Albuterol IH (ProAir) [Proair Hfa] 2 puff INHALATION Q4H PRN PRN #1 inhaler PRN Reason: Sob &/Or Wheezing Transmission Status: Received by [facility] Primary Care Physician: Tanner Li MD [Primary Care Provider] - Please follow up with your Primary Care Physician in: in 1-2 week, virtual visit. Follow up CMP in 1 week with PCP Please Follow Up With: Bassam Hall, DO When: Submassive PE in 4 week, mediastinal LN Medical Necessity - Tobacco Use Smoking Status: Never smoker Meaningful Use Info Meaningful Use Diagnoses (Choose all that apply): None applicable Inpatient E&M: 48251 Disch Hosp
[2020-05-19] MEDS: Famotidine 20 MG Tablet PO (11:49)
[2020-05-19] MEDS: guaiFENesin 1,200 MG Tablet 1200 MG PO (11:49)
== END 2020-05-19 15:45 | disposition home or self-care (01) | DRG 175 ==
PROVIDERS: Admitting Provider Student in an Organized Health Care Education/Training Program; PCP Family Medicine; Visit Provider Internal Medicine
DX: I26.99 Other pulmonary embolism without acute cor pulmonale (principal); J96.01 Acute respiratory failure with hypoxia; E43 Unspecified severe protein-calorie malnutrition; R04.2 Hemoptysis; R74.8 Abnormal levels of other serum enzymes; Z68.28 Body mass index [BMI] 28.0-28.9, adult; D47.3 Essential (hemorrhagic) thrombocythemia; I11.9 Hypertensive heart disease without heart failure; E78.5 Hyperlipidemia, unspecified; I48.91 Unspecified atrial fibrillation; I25.10 Atherosclerotic heart disease of native coronary artery without angina pectoris; M19.90 Unspecified osteoarthritis, unspecified site; I49.3 Ventricular premature depolarization; Z79.01 Long term (current) use of anticoagulants; Z79.02 Long term (current) use of antithrombotics/antiplatelets; Z79.899 Other long term (current) drug therapy; Z86.19 Personal history of other infectious and parasitic diseases; Z95.5 Presence of coronary angioplasty implant and graft
CPT/HCPCS: 36415; 76705; 80048; 80053; 80076; 83615; 83880; 84484; 85025; 85027; 86140; 87635; 93306; 94667; 97161; 97166; 97802; 97803; J7040; Q9957; A4216; U0002

== ENCOUNTER → 2020-06-08 14:31 | Outpatient (CLI) | payer MEDICARE, OTHER, SELFPAY ==
[2020-06-08 13:24] VITALS: BMI 27.4
--- NOTE | 2020-06-08 14:35 | RAD_ITS ---
STUDY: X-RAY CHEST REASON FOR EXAM: Male, 75 years old. ABNORMAL BREATH SOUNDS TECHNIQUE: PA and lateral views of the chest. COMPARISON: 09/30/1979 FINDINGS: Alveolar opacity in the lower right lung consistent with right lower lobe pneumonia. Some focal alveolar opacity in the lower left lung consistent with lingular pneumonia. There is no demonstrated pleural abnormality. Normal size heart. Normal mediastinum and josé luis. Normal visualized pulmonary arteries. Normal visualized aortic arch and descending thoracic aorta. Normal visualized thoracic spine. Normal visualized ribs, clavicles, and shoulders. There is no demonstrated abnormality of the visualized soft tissue structures of the upper abdomen. RAD/Chest PA and Lateral IMPRESSION: Bilateral pneumonia. Electronically Signed: Eloy Perez MD at 10:25 EST Tel , Service support ,
[2020-06-08 16:24] LABS: AST(SGOT) 13 U/L (15-37); Alanine Aminotransfer ALT/SGPT 34 U/L (16-61); Albumin, Serum 2.8 g/dL (3.2-5.0); Alkaline Phosphatase 179 U/L (45-117); Bilirubin, Direct 0.06 mg/dL (0.00-0.30); Globulin 4.6 g/dL (2.2-4.2); Protein, Total 7.4 g/dL (6.4-8.2)
== END ==
PROVIDERS: PCP Family Medicine; Referring Provider Physician Assistant Medical; Visit Provider Physician Assistant Medical
DX: R06.89 Other abnormalities of breathing (principal); E78.00 Pure hypercholesterolemia, unspecified; R74.8 Abnormal levels of other serum enzymes
CPT/HCPCS: 36415; 71046; 80076

== ENCOUNTER → 2020-08-24 14:45 | Outpatient (CLI) | payer MEDICARE, OTHER, SELFPAY ==
[2020-08-02 07:41] VITALS: BMI 29.5
--- NOTE | 2020-08-24 15:06 | CT_ITS ---
STUDY: CT CHEST WITHOUT CONTRAST REASON FOR EXAM: Male, 75 years old. Lung Nodule RADIATION DOSAGE (If Supplied By Facility): CTDIvol = ( 13.60 ) mGy, DLP = ( 420.83 ) mGycm TECHNIQUE: Transaxial imaging was performed without the administration of intravenous contrast material. Individualized dose optimization techniques were used for this CT. COMPARISON: None. FINDINGS: Soft tissue mass extending from the left thoracic inlet inferiorly along trachea to the level of the aortic arch. Consolidation versus mass right base measuring 2.8 x 4.1 cm. Extensive scarring and atelectasis. There is no demonstrated pleural abnormality. Normal heart and pericardium. There are multiple small lymph nodes within the mediastinum, which are normal in size and morphology most compatible with reactive lymph hyperplasia. Normal hilar regions. Normal unenhanced pulmonary arteries. Normal aorta arch and descending thoracic aorta. Normal osseous structures. There is no demonstrated abnormality of the visualized upper abdomen. CT/Chest without Contrast IMPRESSION: Density at the right lung base may represent consolidation or atelectasis. Mass is not excluded. Solid mass is seen extending from the level of the thyroid into the superior mediastinum measuring up to 4.6 cm in craniocaudal dimension consider further evaluation with thyroid ultrasound. Tissue sampling may be considered. Electronically Signed: Jaime Pappas MD at 18:47 EST Tel , Service support ,
== END ==
PROVIDERS: PCP Family Medicine; Referring Provider Internal Medicine Critical Care Medicine; Visit Provider Internal Medicine Critical Care Medicine
DX: R91.1 Solitary pulmonary nodule (principal)
CPT/HCPCS: 71250

== ENCOUNTER → 2020-08-28 14:54 | Outpatient (CLI) | payer MEDICARE, OTHER, SELFPAY ==
[2020-08-28 14:17] VITALS: BMI 29.5
[2020-08-28 15:10] LABS: Hematocrit 47.3 % (40-54); Hemoglobin 15.3 g/dL (13.0-16.5); Mean Corp Hgb Conc 32.3 g/dL (32-36); Mean Corpuscular Hgb 27.7 pg (27.0-32.0); Mean Corpuscular Volume 85.7 fL (80-94); Mean Platelet Vol. 8.4 fl (6.2-12.0); Platelet Count 301 K/mm3 (150-450); RBC Distribution Width CV 13.1 % (11.6-14.6); RBC Distribution Width SD 40.6 fl (35.1-43.9); Red Blood Count 5.52 M/mm3 (4.6-6.2); White Blood Count 7.8 K/mm3 (4.4-11.0)
[2020-08-28 15:26] LABS: International Normalized Ratio 1.1; Prothrombin Time (Protime)PT. 13.6 SECONDS (11.7-14.9)
== END ==
PROVIDERS: PCP Family Medicine; Referring Provider Internal Medicine Critical Care Medicine; Visit Provider Internal Medicine Critical Care Medicine
DX: N41.9 Inflammatory disease of prostate, unspecified (principal); Z98.890 Other specified postprocedural states
CPT/HCPCS: 36415; 85027; 85610

== ENCOUNTER 2020-09-08 10:54 | Day surgery (SDC) | payer MEDICARE, OTHER, SELFPAY ==
[2020-08-28 14:17] VITALS: BMI 29.5
--- NOTE | 2020-09-05 07:27 | HP.PCM_ITS ---
History of Present Illness Date of Admission: 09/08/20 Chief Complaint: Paratracheal mass The patient is a 75-year-old male who I recently saw in the pulmonary medicine clinic on August 28, 2020. If you recall, the patient was previously referred to our office for the evaluation of a lung nodule. The patient does have a known history of coronary artery disease status post drug-eluting stent placement. Previously, the patient was admitted to the hospital May 15-2019, with acute hypoxemic respiratory failure secondary to bilateral PE, in the setting of COVID-19 pneumonia. On review of records, the patient had been admitted earlier in the month in April at [facility] for 4 days with COVID-19. Surface echocardiogram dated May 15, 2020 revealed normal LV size and function with an ejection fraction of 65%. Right ventricular systolic pressure was unable to be estimated. Of note, although I do have a copy of the patient's radiology report of his CT chest, dated May 15, 2020, through [facility], I do not have a physical copy of the images to review personally. Per the radiology report, the patient had bilateral pulmonary emboli along with peripheral ground glass opacities and a confluent right lower lobe density, which could be secondary to pulmonary infarction. There was a nodule noted in the left anterior thorax that measured 0.6 x 0.9 x 1.3 cm on the pleural surface. The patient is a lifelong non-smoker with very limited secondhand smoke exposure. 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 The patient remains on a combination of Plavix, aspirin and Eliquis. He was never previously diagnosed with asthma in childhood. A follow-up chest CT without contrast was completed on August 24, 2020 and revealed a sizable soft tissue mass in the left paratracheal region extending to the level of the aortic arch. There was also a large right lower lobe consolidation versus lung mass measuring 2.8 x 4.1 cm in size. Past Medical History Past Medical History (Chronic Problems): Chronic Problems (Last Reviewed 08/28/20 @ 14:10 by Oralia Gardner) Prostatitis (Chronic) Arthritis (Chronic) PAF (paroxysmal atrial fibrillation) (Chronic) Atherosclerosis of coronary artery of [place] heart without angina pectoris (Chronic) Essential (primary) hypertension (Chronic) Hyperlipidemia (Chronic) Medical History: Medical History (Last Reviewed 08/28/20 @ 14:10 by Oralia Gardner) Prostatitis (Chronic) N41.9 Arthritis (Chronic) M19.90 PAF (paroxysmal atrial fibrillation) (Chronic) I48.0 Atherosclerosis of coronary artery of [place] heart without angina pectoris (Chronic) I25.10 Essential (primary) hypertension (Chronic) I10 Hyperlipidemia (Chronic) E78.5 Bruit (Inactive) R09.89 Allergies Penicillins Allergy (Verified 09/04/20 13:55) Rash Home Medications: Ambulatory Orders Medication Instructions Recorded Albuterol IH (ProAir) [Proair Hfa] 2 puff INHALATION Q4H PRN PRN #1 05/19/20 inhaler aspirin 81 mg tablet,delayed 81 mg PO DAILY 06/08/20 release clopidogrel 75 mg tablet 75 mg PO DAILY 08/02/20 Apixaban [Eliquis] 5 mg PO BID 09/04/20 Lisinopril [Zestril] 10 mg PO DAILY 09/04/20 Metoprolol Succinate [Toprol Xl] 25 mg PO DAILY 09/04/20 Turmeric Root Extract [Turmeric] 500 mg PO PRN PRN 09/04/20 Surgical History: Surgical History (Last Reviewed 08/28/20 @ 14:10 by Oralia Gardner) History of prostate surgery (Resolved) Z98.890 History of appendectomy (Resolved) Z90.49 History of coronary artery stent placement (Resolved) Onset Date: 10/03/17 Z95.5 MINA-RCA 3.5 X 28 MM Taxus 02/25/2006 MINA-Mid CX 2.5 x 13 mm and 2.58 mm Cypher 03/10/2006; [id number]-Iscjsk RCA w/ 3.0 x 38 Promus Synergy stent 10/03/2017 Psychiatric History: No pertinent psych hx Smoking Status: Never smoker Tobacco Use: Non-smoker Review of Systems Constitutional: Denies: Chills, Fever, Weight Change HEENT: Denies: Head Aches, Sinus Congestion, Sinus Drainage Cardiovascular: Denies: Chest Pain, Palpitations Respiratory: Denies: Cough, Shortness of breath at rest, Sputum production Gastrointestinal: Denies: Abdominal Pain, Nausea, Vomiting Genitourinary: Denies: Dysuria Musculoskeletal: Denies: Joint Pain, Joint Tenderness Skin: Denies: Rash, Wounds Neurological: Denies: Numbness, Tingling, Focal weakness Psychiatric: Denies: Anxiety, Depression, Homicidal Ideations, Suicidal Ideations Hematologic/ Lymphatic: Denies: Easy Bruising, Easy Bleeding VTE Information - Inpt Only VTE Present on Admission: No VTE Mechan Device Prophylaxis: None VTE Pharm Prophylaxis ordered?: No Reason prophylaxis not ordered:: Treatment Not Indicated - Physical Exam Vitals/I&O's: Body Mass Index (BMI) 29.5 General: Alert, Cooperative HEENT: Atraumatic, Normocephalic Oral: No Gingival or Mucosal Lesions/ Ulcerations Neck: Supple, No Nodes, Trachea Midline Lungs: Normal air movement, No rhonchi, No wheeze, No rales Cardiovascular: Regular rate, Regular Rhythm Abdomen: Bowel Sounds Present, Soft, Non Tender Extremities: No clubbing, No cyanosis, No edema Skin: No breakdown Musculoskeletal: No Tenderness to Palpation of Joints or Extremities Lymphatic: No Cervical, Supraclavicular, or Inguinal Adenopathy Neurological: Cranial nerves II-XII grossly intact, Neuro grossly intact Psych/Mental Status: Alert and oriented to time, place, person, mood and affect Assessment/Plan All Active Problems (Last Reviewed 08/28/20 @ 14:10 by Oralia Gardner) History of prostate surgery (Resolved) History of appendectomy (Resolved) History of coronary artery stent placement (Resolved 10/03/17) Assessment & Plan 1. Peritracheal mass R22.2 Plan If you recall, the patient had initially been referred to our office after an outside hospital chest CT revealed evidence of a lung nodule. However, on follow-up chest imaging dated August 24, the patient had evidence of a large left peritracheal mass extending to the level of the aortic arch. In addition, he had evidence of a sizable right lower lobe consolidation versus lung mass. These findings are certainly of concern. The results of his chest CT were reviewed with the patient and questions were answered accordingly. I explained options for moving forward in terms of diagnostic work-up, which included proceeding with a PET scan versus direct tissue biopsy. Following a discussion regarding the risks and benefits of both modalities, the patient has elected to pursue direct tissue biopsy. Given the peritracheal mass noted on chest CT, I did recommend that we proceed with EBUS assisted transbronchial needle aspiration. The patient does have drug-eluting stents in place but has been on Plavix now for several years. He will need to hold his Plavix for at least 5 days before the procedure. His aspirin and Eliquis will also be held.
[2020-09-08] VITALS (7 sets, daily range): BP systolic 95–138; BP diastolic 67–88; PULSE 64–82; RESP 16–18; TEMP 36.3–36.7; O2SAT 98–100; BMI 28.8
--- NOTE | 2020-09-08 | IMM_PTH ---
PATIENT: VEGA FRAZIER LOC: EN U#:[id number] AGE/SX: 75/M ROOM: RE09/08/[address]: Dr. Bassam Hall DO : 1945 BED: DIS: 09/08/2020 SPEC #: [id number] RECD: 09/11/20 12:33 STATUS: SOURadha REQ #: [id number] TEE: 09/08/20 00:[address]: Bassam Hall DEPT: IMMUNOHISTOCHEMISTRY RECD BY: Irena Oneill ENTERED: 09/11/20 12:36 SP TYPE: IMMUNO OTHR DR: Dr. Tanner Li MD Tissues: I - Lung, NOS Procedures: BCL-2 (add) BCL-6 (add) CD10 (add) CD138 (add) CD15 (add) CD20 (add) CD23 (add) CD3 (add) CD30 (add) CD43 (add) CD45 (add) CD5 (add) CD79A (add) CYCLIN (add) MUM1 (add) Pankeratin (initial) PHYSICIAN & [address] [address] SPECIMEN INFORMATION: Tissue Source: I - EBUS, TBNA, site 7 Clinical Info: Mediastinal lymphadenopathy Specimen Number: [id number] CPT code: 30780, 77986 x15 METHODOLOGY: Deparaffinized sections of prefer/formalin-fixed tissue or PAP/DQ stained slides are incubated with monoclonal/polyclonal antibodies/oligonucleotide probes. Localization is made via biotin free immunoperoxidase method. Appropriate controls are performed and reacted as expected. Results on target cell population are indicated in the following table: RESULTS: ANTIBODY / CLONE RESULT Block I AE1-3 (AE1/AE3/PCK26) negative CD3 (PS1) positive, focal CD5 (SP10) positive, focal CD10 (56C6) negative CD15 (MMA) negative CD20 (L26) negative, focal CD23 (1B12) negative CD30 (Jae-H2) negative CD43 (L60) positive, focal CD45 (RP2/18) positive CD79a (11E3) positive, focal CD138 (B-A38) negative BCL-2 (bcl-2/100/D5) negative BCL-6 (VS824N/A8) negative Cyclin D1/BCL-1 (SP4) negative MUM1 (MRQ-43) negative These tests were developed and their performance characteristics determined by [facility]. They may not have been cleared or approved by the U.S. Food and Drug Administration. The FDA has determined that such clearance or approval is not necessary. The above immunohistochemical/dualISH markers are ordered and reviewed by the Pathologist. INTERPRETATION: MARIA DOLORES THAYER, site 7 (cell block): No evidence of lymphoproliferative disorder. AM:paula 09/13/2020
[2020-09-08] MEDS: Lactated Ringers 1,000 ML 100 ML IV (11:32)
--- NOTE | 2020-09-08 12:00 | ASPIG_PTH ---
PATIENT: VEGA FRAZIER LOC: EN U#:[id number] AGE/SX: 75/M ROOM: RE09/08/[address]: Dr. Bassam Hall DO : 1945 BED: DIS: 09/08/2020 SPEC #: [id number] RECD: 09/08/20 13:24 STATUS: IRIS REKamar #: [id number] TEE: 09/08/20 12:[address]: Bassam Hall DEPT: CYTOLOGY RECD BY: Mellissa Crooks ENTERED: 09/08/20 13:27 SP TYPE: ASP OUT OTHR DR: Dr. Tanner Li MD Tissues: A - Lung, NOS B - Lung, NOS C - Lung, NOS D - Lung, NOS E - Lung, NOS F - Lung, NOS G - Lung, NOS H - Lung, NOS I - Lung, NOS J - Lung, NOS K - Lung, NOS Procedures: FNA Specimen Adequacy Special Stain Group II Surgery Specimen Level IV Cytology Other HEADER OPERATION: EBUS with TBNA PRE-OP DIAGNOSIS: Mediastinal lymphadenopathy TISSUE SUBMITTED: A - EBUS, TBNA, site 7 #1, B - EBUS, TBNA, site 7 #2, C - EBUS, TBNA, site 4L #3, D - EBUS, TBNA, site 4L #4, E - EBUS, TBNA, site 4L #5, F - EBUS, TBNA, site 4L #6, G - EBUS, TBNA, site 4R #7, H - EBUS, TBNA, site 4R #8, I - EBUS, TBNA, site 7, J - EBUS, TBNA, site 4L, K - EBUS, TBNA, site 4R DIAGNOSIS CYTOLOGY A. EBUS, TBNA, site 7 #1 (smears): Negative for malignant cells. B. EBUS, TBNA, site 7 #2 (smears): Polymorphous lymphocytes present. C. EBUS, TBNA, site 4L #3 (smears): Negative for malignant cells. D. EBUS, TBNA, site 4L #4 (smears): Negative for malignant cells. E. EBUS, TBNA, site 4L #5 (smears): Negative for malignant cells. F. EBUS, TBNA, site 4L #6 (smears): Negative for malignant cells. G. EBUS, TBNA, site 4R #7 (smears): Negative for malignant cells. H. EBUS, TBNA, site 4R #8 (smears): Negative for malignant cells. I. EBUS, TBNA, site 7 (cell block): Polytypic lymphocytes. See comment. J. EBUS, TBNA, site 4L (cell block): Negative for malignant cells. K. EBUS, TBNA, site 4R (cell block): Negative for malignant cells. AM:paula 09/13/2020 COMMENT The specimen is evaluated at the time of procedure by Dr. Wilson. Rapid Onsite Evaluation: A. EBUS, TBNA, site 7 #1: Blood only. Nondiagnostic specimen. B. EBUS, TBNA, site 7 #2: Atypical lymphocytes are present. Adequate for evaluation. C. EBUS, TBNA, site 4L #3: Predominantly respiratory epithelial cells present. Negative for malignant cells. D. EBUS, TBNA, site 4L #4: Predominantly respiratory epithelial cells present. Negative for malignant cells. E. EBUS, TBNA, site 4L #5: Predominantly respiratory epithelial cells present. Negative for malignant cells. F. EBUS, TBNA, site 4L #6: Numerous lymphocytes present. Adequate for evaluation. G. EBUS, TBNA, site 4R #7: Bloody specimen. Lymphocytes present. H. EBUS, TBNA, site 4R #8: Bloody specimen. Lymphocytes present. I. Immunohistochemistry ([id number]) supports the above diagnosis. Flow cytometry analysis performed at [facility] reveals no evidence of B or T-cell lymphoma. The complete report is viewable in patient's EMR. CYTOLOGY STUDY Slides are reviewed. CYTOLOGY GROSS A - Received labeled with the patient's name and and designated EBUS, TBNA, site 7 #1. The specimen consists of two stained smears for ORION (Rapid Onsite Evaluation). B - Received labeled with the patient's name and and designated EBUS, TBNA, site 7 #2. The specimen consists of two stained smears for ORION. C - Received labeled with the patient's name and and designated EBUS, TBNA, site 4L #3. The specimen consists of two stained smears for ORION. D - Received labeled with the patient's name and and designated EBUS, TBNA, site 4L #4. The specimen consists of two stained smears for ORION. E - Received labeled with the patient's name and and designated EBUS, TBNA, site 4L #5. The specimen consists of two stained smears for ORION. F - Received labeled with the patient's name and and designated EBUS, TBNA, site 4L #6. The specimen consists of two stained smears for ORION. G - Received labeled with the patient's name and and designated EBUS, TBNA, site 4R #7. The specimen consists of two stained smears for ORION. H - Received labeled with the patient's name and and designated EBUS, TBNA, site 4R #8. The specimen consists of two stained smears for ORION. I - Received in RPMI is 35 ml of red, cloudy with particles, needle rinsed fluid labeled with the patient's name and and designated EBUS, TBNA, site 7. The specimen is submitted for cell block preparation. J - Received in RPMI is 35 ml of red, cloudy with particles, needle rinsed fluid labeled with the patient's name and and designated EBUS, TBNA, site 4L. The specimen is submitted for cell block preparation. K - Received in RPMI is 35 ml of red, cloudy with particles, needle rinsed fluid labeled with the patient's name and and designated EBUS, TBNA, site 4R. The specimen is submitted for cell block preparation. / SJ:rg 09/08/2020 TC:5 CPT: 84337 x3, 56908 x3, 50448 x8
--- NOTE | 2020-09-08 13:10 | OP.BRONCH_ITS ---
Patient Name: Nacho Urena Procedure Date: 09/08/2020 10:54 AM Date of : 1945 Age: 75 Procedure: Bronchoscopy Indications: Mediastinal adenopathy Providers: Bassam Hall MD Medicines: General Anesthesia Complications: No immediate complications Procedure: Pre-Anesthesia Assessment: - A History and Physical has been performed. Patient meds and allergies have been reviewed. The risks and benefits of the procedure and the sedation options and risks were discussed with the patient. All questions were answered and informed consent was obtained. Patient identification and proposed procedure were verified prior to the procedure by the physician and the nurse in the procedure room. Mental Status Examination: alert and oriented. Airway Examination: normal oropharyngeal airway. Respiratory Examination: clear to auscultation. CV Examination: normal. ASA Grade Assessment: II - A patient with mild systemic disease. After reviewing the risks and benefits, the patient was deemed in satisfactory condition to undergo the procedure. The anesthesia plan was to use general anesthesia. Immediately prior to administration of medications, the patient was re-assessed for adequacy to receive sedatives. The heart rate, respiratory rate, oxygen saturations, blood pressure, adequacy of pulmonary ventilation, and response to care were monitored throughout the procedure. The physical status of the patient was re-assessed after the procedure. After I obtained informed consent, the scope was passed under direct vision. Throughout the procedure, the patient's blood pressure, pulse, and oxygen saturations were monitored continuously. The ultrasound bronchoscope was introduced through the mouth, via laryngeal mask airway and advanced to the tracheobronchial tree. The bronchoscope was introduced through the and advanced to the tracheoborncheal tree. The procedure was accomplished without difficulty. The patient tolerated the procedure well. Findings: The laryngeal mask airway is in good position. The vocal cords appear normal. The subglottic space is normal. The trachea is of normal caliber. The sue is sharp. The tracheobronchial tree was examined to at least the first subsegmental level. Bronchial mucosa and anatomy are normal; there are no endobronchial lesions, and no secretions. The scope was withdrawn and replaced with the EBUS bronchoscope to accomplish the ultrasound examination. Lymph Nodes: An endobronchial ultrasound endoscope was utilized to systematically examine the right upper paratracheal region (level 2R), left upper paratracheal region (level 2L), right lower paratracheal region (level 4R), left lower paratracheal region (level 4L) and subcarinal mediastinum (level 7) in order to assist with fine needle aspiration. Transbronchial needle aspirations were performed in the right paratracheal area, in the left paratracheal (AP window) area and in the subcarinal area using an Olympus EBUS-TBNA 19 gauge needle and sent for routine cytology and flow cytometry. Two samples from lymph node station #7 ([place]carina) were obtained and sent for analysis. Four samples from lymph node station 4L (Left Paratracheal) were obtained and sent for analysis. Two samples from lymph node station 4R (Right Paratracheal) were obtained and sent for analysis. Impression: - Mediastinal adenopathy - The airway examination was normal. - Endobronchial ultrasound was performed. - Transbronchial needle aspiration was performed. Recommendation: - Await biopsy results. Procedure Code(s): --- Professional --- 58686, Bronchoscopy, rigid or flexible, including fluoroscopic guidance, when performed; with endobronchial ultrasound (EBUS) guided transtracheal and/or transbronchial sampling (eg, aspiration[s]/biopsy[ies]), 3 or more mediastinal and/or hilar lymph node stations or structures Diagnosis Code(s): --- Professional --- R59.0, Localized enlarged lymph nodes CPT copyright 2017 [employer]. All rights reserved. The codes documented in this report are preliminary and upon composing machine operator/tender review may be revised to meet current compliance requirements. DO Bassam Thomas MD 09/08/2020 1:10:15 PM This report has been signed electronically. Number of Addenda: 0 Note Initiated On: 09/08/2020 10:54 AM
== END 2020-09-08 14:47 | disposition home or self-care (01) ==
LOC: EN 10:55 → AC 10:56
PROVIDERS: PCP Family Medicine; Referring Provider Family Medicine; Visit Provider Internal Medicine Critical Care Medicine
PROC: BB4BZZZ Ultrasonography of Pleura (ICD-10-PCS; CPT 31653; principal; 2020-09-08 11:30)
DX: R59.0 Localized enlarged lymph nodes (principal); Z20.828 Contact with and (suspected) exposure to other viral communicable diseases; I48.0 Paroxysmal atrial fibrillation; M19.90 Unspecified osteoarthritis, unspecified site; I25.10 Atherosclerotic heart disease of native coronary artery without angina pectoris; I10 Essential (primary) hypertension; E78.5 Hyperlipidemia, unspecified; Z86.16 Personal history of COVID-19; Z87.01 Personal history of pneumonia (recurrent); Z86.711 Personal history of pulmonary embolism; Z79.82 Long term (current) use of aspirin; Z79.01 Long term (current) use of anticoagulants; Z79.899 Other long term (current) drug therapy
CPT/HCPCS: 31653; 87426; 88161; 88172; 88305; 88313; 88341; 88342; C9803; J7120; J2405

== ENCOUNTER → 2020-09-26 07:55 | Outpatient (CLI) | payer MEDICARE, OTHER, SELFPAY ==
[2020-09-19 09:57] VITALS: BMI 29.2
[2020-09-26] VITALS (13 sets, daily range): BP systolic 89–133; BP diastolic 63–94; PULSE 56–75; RESP 11–23; TEMP 36.9; O2SAT 94–98; BMI 29.0
--- NOTE | 2020-09-26 | ASPIGT_PTH ---
PATIENT: VEGA FRAZIER LOC: CT U#:[id number] AGE/SX: 80/M ROOM: RE09/26/[address]: Dr. Bassam Hall DO : 1945 BED: DIS: SPEC #: [id number] RECD: 09/26/20 09:37 STATUS: IRIS MATAKamar #: [id number] TEE: 09/26/20 00:[address]: Bassam Hall DEPT: SURGICAL PATHOLOGY RECD BY: Mellissa Crooks ENTERED: 09/26/20 09:38 SP TYPE: ASP RAD OTHR DR: Dr. Tanner Li MD Tissues: Lung, NOS Procedures: FNA Specimen Adequacy Special Stain Group II Surgery Specimen Level IV Imprint (control) HEADER OPERATION: Right lower lobe lung, CT-guided core biopsy PRE-OP DIAGNOSIS: RLL lung mass TISSUE SUBMITTED: RLL lung mass 20-gauge core MICROSCOPIC DIAGNOSIS Right lung mass, CT-guided core biopsy: Negative for malignancy. See comment. SJ:paula 09/27/2020 COMMENT The specimen is evaluated at the time of biopsy by Dr. Wilson. Immediate Evaluation: Set 1 (two slides) - Negative for malignant cells. Set 2 (one slide) - Negative for malignant cells. The specimen entirely consists of fibrous tissue with chronic inflammation and histiocytic reaction. Lung parenchymal tissue is not seen in the specimen. Correlation with clinical, radiologic findings and appropriate follow up are necessary. Please make reference to previous specimen ([id number]) EBUS, TBNA, site 7 showing polytypic lymphocytes and sites 4L and 4R, negative for malignant cells. Case has been reviewed in consultation with Dr. Ribera who concurs with the above diagnosis. IDC:AM MICROSCOPIC DESCRIPTION Slides are reviewed. GROSS DESCRIPTION Received in fixative is one container labeled with the patient's name and designated RLL, CT-guided core biopsy. The specimen consists of multiple irregular fragments of weeks soft tissue that in aggregate measure 1 x 0.3 x <0.1 cm. The specimen is totally submitted in one cassette. Three slides with touch imprints are prepared at the time of core biopsy. / Demian 09/26/20 TC:5 CPT: 24481, 72966, 07190
--- NOTE | 2020-09-26 07:56 | CT_ITS ---
PROCEDURE: CT GUIDED CORE NEEDLE BIOPSY OF A right lower lobe LUNG LESION INDICATION: Male, 75 years old. Right Lower Lobe Lung Mass PHYSICIAN: Dr. WILI Worthy CONSENT: Written informed consent was obtained having explained the risks, benefits and alternatives in detail with the patient who accepted the risks and agreed to proceed. Laboratory review and clinical assessment was performed. CONSCIOUS SEDATION PROTOCOL: The Drugs used were: 2 mg Versed, IV., and 50 mcg Fentanyl, IV. The sedation time was: 22 minutes. Conscious sedation was started at 9:05 AM and terminated at 9:27 AM. The conscious sedation protocol was independently monitored. RADIATION DOSAGE (If Supplied By Facility): CTDIvol = ( 9.5 ) mGy, DLP = ( 2010.4 ) mGycm Individualized dose optimization techniques were used for this CT. TECHNIQUE: The patient was placed in the prone position. A noncontrast CT was performed to localize the lesion in the posterior aspect of the right lower lobe . The skin surface was prepped and draped in a sterile fashion. 1% lidocaine was used for local anesthesia. Using CT guidance, a 20-gauge coaxial biopsy device was advanced to the periphery of the lesion. A total of 4 core specimens were obtained. The specimens were placed in a formalin solution. A post procedure CT demonstrated no adverse sequelae or pneumothorax. The patient tolerated the procedure well without adverse event. A negative biopsy does not exclude malignancy. Further imaging or clinical followup based on patient condition and degree of clinical suspicion for malignancy. Suggest rebiopsy, if biopsy results do not match with clinical scenario. CT/Biopsy/Inj or Needle Placement IMPRESSION: 1. CT directed core needle biopsy of the right lower lobe lesion using CT image guidance with image documentation as described. Pathology results are pending. 2. Conscious Sedation protocol utilized with independent monitoring. Electronically Signed: Josr Hassan MD at 9:56 EDT , Service support ,
[2020-09-26] MEDS: Midazolam 2 MG/2 ML Syringe IV (09:05)
[2020-09-26] MEDS: fentaNYL 100 MCG/2 ML Ampul IV (09:06)
--- NOTE | 2020-09-26 09:43 | RAD_ITS ---
STUDY: X-RAY CHEST REASON FOR EXAM: Male, [address] bx -- immediately post lung biopsy TECHNIQUE: AP inspiration and expiration views. COMPARISON: Comparison is made with prior examination dated 06/08/2020. FINDINGS: Immediate post right lung biopsy radiographs were obtained. There is no evidence of pneumothorax. RAD/Chest Insp/Exp 2 View IMPRESSION: No evidence of pneumothorax on the immediate post right lung biopsy radiographs. Electronically Signed: Josr Hassan MD at 9:49 EDT , Service support ,
--- NOTE | 2020-09-26 11:30 | RAD_ITS ---
STUDY: X-RAY CHEST REASON FOR EXAM: Male, [address] bx -- 2 hours post lung biopsy TECHNIQUE: AP inspiration and expiration views. COMPARISON: Comparison is made with prior study done earlier today. FINDINGS: EKG electrode is seen The patient is status to lower post right lung biopsy. No evidence pneumothorax. RAD/Chest Insp/Exp 2 View IMPRESSION: No evidence of pneumothorax on the 2 hour post right lung biopsy radiographs. Electronically Signed: Josr Hassan MD at 12:38 EDT , Service support ,
--- NOTE | 2020-09-26 11:57 | NURSING ---
Pt's 2nd chest xray taken at 1139, pt cleared by Dr. Hassan at 1145.
== END ==
PROVIDERS: PCP Family Medicine; Referring Provider Internal Medicine Critical Care Medicine; Visit Provider Internal Medicine Critical Care Medicine
DX: R91.8 Other nonspecific abnormal finding of lung field (principal); I10 Essential (primary) hypertension; M19.90 Unspecified osteoarthritis, unspecified site; I48.0 Paroxysmal atrial fibrillation; I25.10 Atherosclerotic heart disease of native coronary artery without angina pectoris; E78.5 Hyperlipidemia, unspecified; Z86.711 Personal history of pulmonary embolism; Z95.5 Presence of coronary angioplasty implant and graft; Z79.82 Long term (current) use of aspirin; Z79.899 Other long term (current) drug therapy
CPT/HCPCS: 32408; 71046; 77012; 88172; 88305; 88313; 99155; 99156; J7040; A4216; C2613

== ENCOUNTER → 2021-04-03 16:44 | Outpatient (CLI) | payer MEDICARE, OTHER, SELFPAY ==
--- NOTE | 2021-04-03 16:50 | CT_ITS ---
STUDY: CT CHEST WITHOUT CONTRAST REASON FOR EXAM: Male, 75 years old. Follow-up lung mass. RADIATION DOSAGE (If Supplied By Facility): CTDIvol = ( 18.02 ) mGy, DLP = ( 734.59 ) mGycm TECHNIQUE: Transaxial imaging was performed without the administration of intravenous contrast material. Multiplanar coronal and sagittal images were reformatted. Individualized dose optimization techniques were used for this CT. COMPARISON: Chest, 09/26/2020. CT of the chest, 08/24/2020. FINDINGS: Lungs well-expanded. There is near complete resolution of the density seen in the right posterior costophrenic angle and compared prior study. This is a small area of density along the pleural surface measuring 1 cm in diameter with continued stranding extending upward towards the hilum. There is minimal collapse in the lingula along the oblique fissure unchanged from previous study. There is no new mass or infiltrate. There is no demonstrated pleural abnormality. Normal heart and pericardium. There are calcifications of the coronary arteries. There is a stable soft tissue mass in the hilum along the left lateral aspect of the trachea appears unchanged in size and appearance from the previous study. Other smaller mediastinal lymph nodes are again seen and appear unchanged or slightly decreased in size. Normal hilar regions. Normal unenhanced pulmonary arteries. Minimal atherosclerotic changes of the aortic arch are again seen. Normal osseous structures. There is no demonstrated abnormality of the visualized upper abdomen. CT/Chest without Contrast IMPRESSION: 1. Incomplete resolution of right lower lobe mass versus consolidation seen on the previous study. 2. Stable mass in the superior mediastinum which may arise from the left thyroid. 3. Slight decrease in mediastinal lymphadenopathy. 4. No other interval change. Electronically Signed: Alexis Browning DO at 19:19 EDT Tel [phone], Service support ,
== END ==
LOC: CT 16:44
PROVIDERS: PCP Family Medicine; Referring Provider Nurse Practitioner Acute Care; Visit Provider Nurse Practitioner Acute Care
DX: R91.8 Other nonspecific abnormal finding of lung field (principal)
CPT/HCPCS: 71250

== ENCOUNTER → 2024-03-22 | Outpatient (CLI) | payer MEDICARE, OTHER, SELFPAY ==
--- NOTE | 2024-03-22 09:03 | ART_ITS ---
Reason For Study: Claudication Procedure A bilateral lower extremity continuous wave Doppler with analog waveform analysis,segmental pressures,and ankle brachial indexes with exercise. Left Segmental Pressures Left brachial= 136mmHg. Left posterior tibial artery = 168mmHg. Left dorsalis pedis artery = 166mmHg. Left digit = 121 mmHg. The left posterior tibial artery waveforms are triphasic. The left dorsalis pedis waveforms are triphasic. Right Segmental Pressures Right brachial= 150mmHg. Right posterior tibial artery = 162mmHg. Right dorsalis pedis artery = 147mmHg. Right digit = 140 mmHg. The right posterior tibial artery waveforms are triphasic. The right dorsalis pedis waveforms are triphasic. Indices The right ankle brachial index by the posterior tibial artery is 1.08. The right ankle brachial index by the dorsalis pedis is 0.98. The right digital-brachial index is 0.93. The right post exercise ankle brachial index is 1.15. The left ankle brachial index by the posterior tibial artery is 1.12. The left ankle brachial index by the dorsalis pedis is 1.11. The left digital-brachial index is 0.81. The left post exercise ankle brachial index is 1.22. VL/Lower Ext Art Exam w/ Exercise Interpretation Summary Right PRISCILLA 1.08, normal. TBI and Doppler/PVR waveforms of the right leg normal a t rest. Right lower extremity exhibits normal response to exercise. Left PRISCILLA 1.12, normal. TBI and Doppler/PVR waveforms of the left leg normal at rest. Left lower extremity exhibits normal response to exercise. Ordering Physician: Jay Vasquez Referring Physician: Tanner Li Performed By: Masood Pulliam RVT
--- NOTE | 2024-03-22 09:03 | AAAS_ITS ---
Reason For Study: AAA Screening / Claudication Aorta Measurements Aorta Doppler Measurements Proximal aorta measures2.13 x 2.18cm. in cross- Peak systolic flow velocities within the proximal sectional axis. aorta measure 72.3 cm/sec. Proximal aorta measures2.24cm. in longitudinal Peak systolic flow velocities within the mid aorta axis. measure 124.1 cm/sec. Mid aorta measures1.83 x 1.78cm. in cross- Peak systolic flow velocities within the distal sectional axis. aorta measure 181.2 cm/sec. Mid aorta measures1.79cm. in longitudinal axis. Distal aorta measures1.51 x 1.49cm. in cross- sectional axis. Distal aorta measures1.44cm. in longitudinal axis. Left Iliac Artery Left iliac artery measures 0.92 x 0.96 cm. in the cross-sectional axis. Left iliac artery measures 0.97 cm. in the longitudinal axis. Peak systolic velocity in the left iliac artery measures 187.9 cm/sec. Right Iliac Artery Right iliac artery measures 0.83 x 0.97 cm. in the cross-sectional axis. Right iliac artery measures 1.05 cm. in the longitudinal axis. Peak systolic velocity in the right iliac artery measures 223.2 cm/sec. Procedure Aorta IVC Iliac vasculature or bypass grafts [id number]. The exam was diagnostic. Exam performed in department. VL/AAA Screening Interpretation Summary Aorta patent, normal caliber Bilateral iliac arteries patent, normal caliber Ordering Physician: Jay Vasquez Referring Physician: Tanner Li Performed By: Masood Pulliam, RVT
== END | disposition home or self-care (01) ==
LOC: CVS 08:46
PROVIDERS: PCP Family Medicine; Referring Provider Internal Medicine Cardiovascular Disease; Visit Provider Internal Medicine Cardiovascular Disease
DX: I73.9 Peripheral vascular disease, unspecified (principal); I25.10 Atherosclerotic heart disease of native coronary artery without angina pectoris
CPT/HCPCS: 76706; 93924

== ENCOUNTER → 2025-03-08 | Outpatient (CLI) | payer MEDICARE, OTHER, SELFPAY ==
--- NOTE | 2025-03-08 10:36 | STEWCON_ITS ---
Reason For Study Reason For Study: CAD/ASHD,SOB Stress Results Maximum Predicted HR: 143 bpm Target HR: 122 bpm % Maximum Predicted HR: 77 % DurationHeart Rate Stage (mm:ss) (bpm) BP Comment BASELINE 86 142/82 STAGE 1 3:00 98 162/80 STAGE 2 2:00 110 / RECOVERY 74 138/804 CC DEFINITY FOR ENTIRE TEST, TECHNICALLY DIFFICULT STUDY Stress Duration: 5:00 mm:ss Maximum Stress HR: 110 bpm Baseline Echocardiogram Findings Normal LV systolic function at rest. Estimated LVEF 60%. Stress Echo Wall motion Data Resting WM Intermediate WM Stress WM Resting Wall Motion Wall Motion Stress Normal resting LV systolic function. Poststress, the inferior wall is hypokinetic. Suggestive of inferior wall ischemia. EKG Data Sinus rhythm at baseline. Walked 5 minutes on the treadmill according to the Ivan protocol. No ischemic stress ECG changes at 77% of the maximal predicted heart rate. No complaints of chest pain noted. Frequent PVCs during exercise and recovery. ECHO/Stress Test Echo W/Contrast Interpretation Summary Walked 5 minutes on the treadmill according to the Ivan protocol. No ischemic stress ECG changes at 77% of the maximal predicted heart rate. No c omplaints of chest pain noted. Frequent PVCs during exercise and recovery. Post exercise echo with hypokinesis of the inferior wall, suggestive of inferio r wall ischemia. Technically difficult study. Ordering Physician: Jay Vasquez Referring Physician: Jay Vasquez Performed By: Korin Bhat, ALDO, RVT
--- OUTSIDE RECORDS SUMMARY | 2025-03-08 17:50 | XMS RPT_ITS | CCD ---
Author Organization [facility] Care Team Providers Care Yard General Car Supervisor Name Role Phone Shirin SALDIVAR, Luke E Unavailable Shirin SALDIVAR, Luke E Unavailable Rafael WOODARD, Dr. Banegas Unavailable [phone] Lynn CERNA, Dr. Vesna Donaldson Unavailable Katy CERNA, Dr. Driscoll Unavailable Tracy CERNA, Dr. Jay Rodas Unavailable You CERNA, Dr. Blu Kern Unavailable Leonila WILD LIFE PHOTOGRAPHER, Marcelle Unavailable Valeria NAIDU, Zehra Unavailable Unavailable Aleksandra CAMACHON, Nena Unavailable Unavailrenard Arzate PA-C, Olimpia Hyatt Unavailable [phone] Rafael CERNA, Jovany Collins Unavailable Gonaina (scribe), Hemanta Unavailable Unavailtonny Peña MD, Iesha Hawk Unavailable Delia Carpio Unavailable Unavailable Arian MCLEAN, Jacquie Unavailable Unavailable Saran ACID STRENGTH INSPECTOR, Elizabeth Unavailable Unavailable Emilie NAIDU, Jyoti Hawk Unavailable Unavaila raúl Aragon ACID STRENGTH INSPECTOR, Carlo Unavailable Unavailable Serina NAIDU, Sania Shine Unavailable Unavailable Jaleel SALDIVAR, Galina Hyatt Unavailable [phone] Gage (Scribe), Rosendo Unavailable Unavailab le Richert ACID STRENGTH INSPECTOR, Nataly Booth Unavailable Unavailab le Mili ACID STRENGTH INSPECTOR, Soumya Garcia Unavailable Unavailab le Alvin ACID STRENGTH INSPECTOR, Shayy Del Castillo Unavailable Unavailab le Kenngerbuck ACID STRENGTH INSPECTOR, Mansi Unavailable Unavailabl thony Coreas LPN, Mary N Unavailable Unavaila ble Celina ACID STRENGTH INSPECTOR, Caryl Unavailable Unavailable Unavailable Unavailable MARIANA CERNA, IESHA Hawk Primary Care Physician GENEVIEVE LOBATO, AUBREY Morse Attending Mick PEÑA MD, IESHA Hawk Primary Care Unavailable GENEVIEVE LOBATO, AUBREY Morse Attending Mick PEÑA MD, IESHA Hawk Primary Care Unavailable YOU CERNA, DR HURT Attending Unavailtonny PEÑA MD, IESHA Hawk Primary Care Unavailable GENEVIEVE LOBATO, AUBREY Morse Attending Mick PEÑA MD, IESHA Hawk Primary Care Unavailable YOU CERNA, DR HURT Attending Unavaila SRAVANI Barber MD Consulting Unavailable MARIANA CERNA, IESHA Hawk Primary Care Unavailable YOU CERNA, DR HURT Consulting Unavaila raúl ORTA MD, DR HURT Attending Unavailtonny PEÑA MD, IESHA Hawk Primary Care Unavailable GENEVIEVE LOBATO, AUBREY Morse Attending Mick PEÑA MD, IESHA Hawk Primary Care Unavailable YOU CERNA, DR HURT Attending Unavaila raúl PEÑA MD, IESHA Hawk Primary Care Unavailable MARIANA CERNA, IESHA Hawk Primary Care Unavailable YOU CERNA, DR HURT Attending Unavaila raúl ORTA MD, DR HURT Attending Unavaila raúl PEÑA MD, IESHA Hawk Primary Care Unavailable MARIANA CERNA, IESHA Hawk Primary Care Unavailable YOU CRENA, DR HURT Attending Unavaila ble SHIRIN, LUKE E Primary Care Unavailable SHIRIN, LUKE E Admitting Unavailable SHIRIN, LUKE E Attending Unavailable SHIRIN, LUKE E Consulting Unavailable PROVIDER, UNKNOWN Consulting Unavailable SHIRIN, LUKE E Primary Care Unavailable SHIRIN, LUKE E Admitting Unavailable SHIRIN, LUKE E Attending Unavailable SHIRIN, LUKE E Consulting Unavailable PROVIDER, UNKNOWN Consulting Unavailable SHIRIN, LUKE E Primary Care Unavailable SHIRIN, LUKE E Admitting Unavailable SHIRIN, LUKE E Attending Unavailable SHIRIN, LUKE E Consulting Unavailable PROVIDER, UNKNOWN Consulting Unavailable SHIRIN, LUKE E Consulting Unavailable SHIRIN, LUKE E Primary Care Unavailable SHIRIN, LUKE E Admitting Unavailable SHIRIN, LUKE E Attending Unavailable PROVIDER, UNKNOWN Consulting Unavailable [facility] Attending Unavailable Unavailable Unavailable Dr. Iesha Peña MD Primary Care Provider Dr. Iesha Peña MD Referring Provider Dr. Jay Vasquez MD Attending Provider Iesha Peña Referring Unavailable Jay Vasquez Attending Unavailable Iesha Peña Primary Care Unavailable Jay Vasquez Referring Unavailable Delroy Escoto Attending Unavailable Iesha Peña Primary Care Unavailable Jay Vasquez Attending Unavailable Jay Vasquez Referring Unavailable Iesha Peña Primary Care Unavailable Iesha Peña Primary Care Unavailable Jay Vasquez Attending Unavailable Jay Vasquez Referring Unavailable Allergies Allergy Classification Reported Allergen(s) Allergy Type Date of Onset Reaction(s) Facility (20 sources) [facility]. (7 sources) Penicillin; Translations: [penicillin] Drug Allergy Rash [facility] Comment on above: rash (1 source) Penicillin Drug Allergy [facility] (1 source) Penicillins Allergy to substance 02-02-2025 [facility] (1 source) Penicillins Drug allergy (disorder) 02-02-2025 [facility] Medications Current Medications Medication Drug Class(es) Dates Sig (Normalized) Sig (Original) atorvastatin 40 mg oral tablet (20 sources) HMG-CoA Reductase Inhibitor Start: 05-10-2024 atorvastatin 40 mg tablet ; 1 (one) Tablet QHS for 0 days Quantity: 90 {Tablet} Refills: 3 Ordered: 10-May-2024 JANNA Carpio Start: 10-May-2024 Start: 03-23-2024 atorvastatin 4 0 mg tablet ; 1 (one) Tablet QHS for 0 days Quantity: 30 {Tablet} Refills: 1 Ordered: 23-Mar-2024 JANNA Carpio Start: 23-Mar-2024 Start: 05-07-2023 take 1 tablet by chirag th once daily Atorvastatin 40 mg tablet Active 40 mg PO DAILY February 05, 2024 12:00am Start: 09-24-2017 End: 06-08-2020 Atorvastatin 40 MG tablet Discontinued 40 mg PO daily 0 0 May 18, 2020 12:20pm June 08, 2020 2:28pm lowers cholesterol Hold for 7 days for incrased LFT and then check LFT and follow with PCP cetirizine hydrochloride 10 mg oral tablet (5 sources) Histamine-1 Receptor Antagonist Start: 01-28-2024 take 1 tablet by mouth once daily as needed Cetirizine (Zyrtec) 10 mg tablet Active 10 mg PO DAILY as needed February 05, 2024 12:00am lisinopril 10 mg oral tablet (20 sources) Angiotensin Converting Enzyme Inhibitor Start: 05-31-2024 lisinopriL 10 mg tablet ; 1 (one) tablet daily for 0 days Quantity: 30 {Tablet} Refills: 2 Ordered: 31-Jan-2025 JANNA Carpio Start: 31-Jan-2025 Start: 09-04-2020 End: 02-05-2024 take 1 tablet by mouth once daily Lisinopril 10 MG tablet Discontinued 10 mg PO DAILY September 04, 2020 1:00am February 05, 2024 10:43am Start: 10-04-2017 End: 08-02-2020 take 1 tablet by mouth once daily Lisinopril 10 MG tablet Discontinued 10 mg PO DAILY 0 May 18, 2020 12:20pm August 02, 2020 8:40am htn Hold if SBP Completed/Discontinued Medications Medication Drug Class(es) Dates Sig (Normalized) Sig (Original) [id number] 200 actuat albuterol 0.09 mg/actuat metered dose inhaler (20 sources) beta2-Adrenergic Agonist Start: 05-19-2020 End: 02-05-2024 Albuterol Sulfate 1 PUFF inhaler Discontinued 2 NMA INHALATION EVERY 4 HOURS NEEDED as needed for Sob &/Or Wheezing 1 May 19, 2020 12:37pm February 05, 2024 10:43am Start: 02-03-2014 End: 01-25-2022 take 2 puff(s) by inhalation every four hours as needed for cough Ventolin HFA 108 (90 Base) MCG/ACT Inhalation Aerosol Solution ; 2 (two) puffs puffs every four hours PRN cough or wheeze for 0 days Quantity: 1 {Inhaler} Refills: 5 Ordered: 25-Jan-2022 KAEL Noonan Start: 03-Feb-2014 End: 25-Jan-2022 Status: Inactive apixaban 5 mg oral tablet (5 sources) Factor Xa Inhibitor Start: 09-04-2020 End: 02-05-2024 take 1 tablet by mouth twice daily Apixaban 5 mg tablet Discontinued 5 mg PO TWICE A DAY 180 3 September 05, 2020 11:08am February 05, 2024 10:43am Start: 06-08-2020 End: 08-02-2020 take 1 tablet by mouth twice daily Apixaban 5 mg tablet Discontinued 5 mg PO TWICE A DAY June 08, 2020 2:26pm August 02, 2020 8:40am Start: 05-18-2020 End: 06-08-2020 take 2 tablets by mouth twice daily, then take 1 tablet by mouth twice daily Apixaban 5 MG tablet Discontinued 10 mg PO TWICE A DAY 70 0 May 18, 2020 1:00am June 08, 2020 2:28pm 10 MG TWICE DAILY FOR 3 MORE DAYS UNTIL 05/21/2020 THEN 5 MG TWICE DAILY Start: 05-15-2020 End: 05-18-2020 take 1 tablet by mouth twice daily Apixaban 5 MG tablet Discontinued 5 mg PO TWICE A DAY May 15, 2020 1:00am May 18, 2020 12:15pm to prevent blood clots was started at [facility] on 05/10 aspirin 81 mg delayed release oral tablet (20 sources) Platelet Aggregation Inhibitor, Nonsteroidal Anti-inflammatory Drug Start: 06-08-2020 End: 06-08-2020 take 1 tablet by mouth once daily Aspirin (Adult Aspirin Regimen) 81 mg tablet,delayed release (DR/EC) Discontinued 81 mg PO DAILY June 08, 2020 1:00am June 08, 2020 2:26pm Start: 09-09-2017 End: 05-18-2020 take 1 tablet by mouth once daily Aspirin 81 mg tablet,delayed release (DR/EC) Active 81 mg PO DAILY June 08, 2020 1:00am take 1 tablet by chirag th once daily BABY ASPIRIN, 81MG (Oral Tablet Chewable) ; 1 daily (81 MG) azithromycin 250 mg oral tablet (20 sources) Macrolide Antimicrobial Start: 04-03-2022 End: 2022 Zithromax Z-Stefanie 250 MG Oral Tablet ; 2 (two) Tabs day one, then one daily for 4 days for 0 days Quantity: 1 {Packet} Refills: 0 Ordered: 30-Apr-2022 EVANGELISTA Phan Start: 03-Apr-2022 End: 30-Apr-2022 Status: Inactive Start: 07-07-2019 End: 07-10-2019 take 1 tablet by mouth once daily Azithromycin 500 MG Oral Tablet ; 1 (one) Tablet daily for 3 days Quantity: 3 {Tablet} Refills: 0 Ordered: 07-Jul-2019 MD Jovany Hall Start: 07-Jul-2019 End: 10-Jul-2019 Status: Inactive Start: 10-02-2012 End: 10-05-2012 take 1 tablet by mouth once daily ZITHROMAX TRI-STEFANIE, 500MG (Oral Tablet) ; 1 (one) Tablet daily for 3 days Quantity: 3 {Tablet} Refills: 0 Ordered: 02-Oct-2012 MD Iesha Peña Start: 02-Oct-2012 End: 05-Oct-2012 Status: Inactive 120 actuat budesonide 0.16 mg/actuat / formoterol fumarate 0.0045 mg/actuat metered dose inhaler (20 sources) Corticosteroid, beta2-Adrenergic Agonist Start: 10-10-2014 End: 08-20-2016 take 2 puff(s) by inhalation twice daily Symbicort 160-4.5 MCG/ACT Inhalation Aerosol ; 2 (two) puffs two times daily for 0 days Quantity: 1 {Inhaler} Refills: 5 Ordered: 20-Aug-2016 Start: 10-Oct-2014 End: 20-Aug-2016 Status: Inactive cefdinir 300 mg oral capsule (20 sources) Cephalosporin Antibacterial Start: 11-29-2024 End: 12-06-2024 cefdinir 300 mg capsule ; 1 (one) capsule two times daily for 7 days Quantity: 14 {Capsule} Refills: 0 Ordered: 29-Nov-2024 JANNA Carpio Start: 29-Nov-2024 End: 06-Dec-2024 Status: Inactive Start: 09-18-2023 End: 09-25-2023 cefdinir 300 mg capsule ; 1 (one) capsule two times daily for 7 days Quantity: 14 {Capsule} Refills: 0 Ordered: 18-Sep-2023 JANNA Carpio Start: 18-Sep-2023 End: 25-Sep-2023 Status: Inactive cephalexin 500 mg oral capsule (20 sources) Cephalosporin Antibacterial Start: 11-29-2013 End: 12-09-2013 take 1 capsule by mouth three times daily CEPHALEXIN, 500MG (Oral Capsule) ; 1 (one) Capsule three times daily for 10 days Quantity: 30 {Capsule} Refills: 0 Ordered: 29-Nov-2013 MD Iesha Peña Start: 29-Nov-2013 End: 09-Dec-2013 Status: Inactive ciprofloxacin 500 mg oral tablet (20 sources) Quinolone Antimicrobial Start: 08-22-2017 End: 09-01-2017 take 1 tablet by mouth twice daily Ciprofloxacin HCl 500 MG Oral Tablet ; 1 (one) Tablet two times daily for 10 days Quantity: 20 {Tablet} Refills: 0 Ordered: 22-Aug-2017 EVANGELISTA Shaw Start: 22-Aug-2017 End: 01-Sep-2017 Status: Inactive clopidogrel 75 mg oral tablet (20 sources) P2Y12 Platelet Inhibitor Start: 08-02-2020 End: 09-05-2020 take 1 tablet by mouth once daily Clopidogrel (Plavix) 75 mg tablet Discontinued 75 mg PO DAILY August 02, 2020 1:00am September 05, 2020 11:09am Start: 09-26-2017 End: 06-08-2020 take 1 tablet by mouth once daily Clopidogrel 75 MG tablet Discontinued 75 mg PO DAILY May 15, 2020 3:08pm June 08, 2020 2:28pm heart stents clotrimazole 10 mg/ml topical cream (20 sources) Azole Antifungal Start: 05-13-2022 End: 04-15-2023 clotrimazole 1 % topical cream ; 1 (one) Application twice daily for 0 days Quantity: 30 {Gram} Refills: 0 Ordered: 15-Apr-2023 EVANGELISTA Phan Start: 13-May-2022 End: 15-Apr-2023 Status: Inactive doxycycline hyclate 100 mg oral tablet (20 sources) Tetracycline-class Drug Start: 08-20-2016 End: 08-30-2016 take 1 tablet by mouth twice daily Doxycycline Hyclate 100 MG Oral Tablet ; 1 (one) Tablet two times daily for 10 days Quantity: 20 {Tablet} Refills: 0 Ordered: 20-Aug-2016 MD Iesha Peña Start: 20-Aug-2016 End: 30-Aug-2016 Status: Inactive famotidine 20 mg oral tablet (1 source) Histamine-2 Receptor Antagonist Start: 05-18-2020 End: 08-02-2020 take 1 tablet by mouth twice daily Famotidine 20 MG tablet Discontinued 20 mg PO TWICE A DAY 20 May 18, 2020 1:00am August 02, 2020 8:40am fluticasone propionate 0.05 mg/actuat metered dose nasal spray (20 sources) Corticosteroid Start: 05-27-2014 End: 08-20-2016 take 1 spray(s) nasal route twice daily FLONASE, 50MCG/ACT (Nasal Suspension) ; 1 (one) spray spray in each nostril BID for 0 days Quantity: 1 {Bottle} Refills: 0 Ordered: 27-May-2014 Start: 27-May-2014 End: 20-Aug-2016 Status: Discontinued Comments: This order discontinued per [facility]. Comment on above: This order discontin ued per [facility]. 12 hr guaiFENesin 1200 mg extended release oral tablet (1 source) Start: 05-18-2020 End: 08-02-2020 take 1 tablet by mouth twice daily Guaifenesin 1,200 MG tablet extended release 12hr Discontinued 1200 mg PO TWICE A DAY 14 May 18, 2020 1:00am August 02, 2020 8:40am homatropine methylbromide 0.3 mg/ml / HYDROcodone bitartrate 1 mg/ml oral solution (20 sources) Opioid Agonist, Cholinergic Muscarinic Agonist Start: 09-07-2012 End: 09-17-2012 HYDROCODONE-HOMATR OPINE, 5-1.5MG/5ML (Oral Syrup) ; 1 (one) teaspoon(s) every four hours as needed for cough for 10 days Quantity: 4 {ounce(s)} Refills: 0 Ordered: 07-Sep-2012 KAEL Méndez Start: 07-Sep-2012 End: 17-Sep-2012 Status: Inactive Comments: Medication taken as needed. May cause drowsiness Comment on above: Medication taken as needed. May cause drowsiness ibuprofen 600 mg oral tablet (1 source) Nonsteroidal Anti-inflammatory Drug Start: 05-18-2020 End: 08-02-2020 take 1 tablet by mouth every eight hours as needed for pain Ibuprofen 600 MG tablet Discontinued 600 mg PO EVERY 8 HOURS NEEDED as needed for pleuritic chest pain 15 May 18, 2020 12:17pm August 02, 2020 8:40am for 2-3 days. levoFLOXacin 500 mg oral tablet (1 source) Quinolone Antimicrobial Start: 06-09-2020 End: 08-02-2020 take 1 tablet by mouth once daily Levofloxacin 500 mg tablet Discontinued 500 mg PO DAILY 5 0 June 09, 2020 1:00am August 02, 2020 8:40am 24 hr metoprolol succinate 25 mg extended release oral tablet (20 sources) beta-Adrenergic Caitlin Start: 09-04-2020 End: 02-05-2024 Metoprolol Succinate 25 MG tablet extended release 24 hr Discontinued 50 mg PO DAILY September 04, 2020 1:00am February 05, 2024 10:43am Start: 06-08-2020 End: 08-02-2020 take 1 tablet by mouth twice daily Metoprolol Tartrate 50 mg tablet Discontinued 50 mg PO TWICE A DAY 60 June 08, 2020 3:17pm August 02, 2020 8:41am Start: 05-19-2020 End: 06-08-2020 Metoprolol Tartrate 50 MG ta blet Discontinued 50 mg PO TWICE A DAY 60 0 May 19, 2020 1:00am June 08, 2020 3:18pm Hold if heart rate less than 60/min and if persistently low between 60-70/m, can decrease the dose to 25 mg twice daily in consultation his PCP Start: 02-03-2020 End: 05-19-2020 take 1 tablet by mouth twice daily Metoprolol Tartrate 25 MG tablet Discontinued 25 mg PO TWICE A DAY May 15, 2020 3:15pm May 19, 2020 12:40pm htn Start: 10-04-2017 End: 02-03-2020 Metoprolol Tartrate 25 mg ta blet Discontinued 12.5 mg PO TWICE A DAY 90 October 08, 2018 3:59pm February 03, 2020 10:08am take 0.5 tablet by m outh twice daily Metoprolol Tartrate 25 MG Oral Tablet ; 1/2 two times daily (25 MG) Status: Inactive Lopressor ; 1/2 two times daily Status: Inactive predniSONE 20 mg oral tablet (20 sources) Start: 04-07-2023 End: 04-15-2023 predniSONE 20 mg tablet ; 1 (one) Tablet take as directed for 0 days Quantity: 20 {Tablet} Refills: 0 Ordered: 15-Apr-2023 EVANGELISTA Phan Start: 07-Apr-2023 End: 15-Apr-2023 Status: Inactive Comments: Take 3tabs qd for 3 days thenTake 2tabs qd for 3 days thenTake 1tab qd for 3 days thenTake 1/2tab qd for 4 days. Comment on above: Take 3tabs qd for 3 days thenTake 2tabs qd for 3 days thenTake 1tab qd for 3 days thenTake 1/2tab qd for 4 days. tamsulosin hydrochloride 0.4 mg oral capsule (20 sources) alpha-Adrenergic Caitlin Start: 10-23-2023 End: 02-02-2025 take 1 capsule by mouth once daily Tamsulosin 0.4 mg capsule Discontinued 0.4 mg PO daily February 05, 2024 12:00am February 02, 2025 1:57pm terbinafine hydrochloride 10 mg/ml topical cream (20 sources) Allylamine Antifungal Start: 09-21-2014 End: 02-01-2016 LAMISIL AT, 1% (External Cream) ; 1 (one) application application as directed for 0 days Quantity: 30 {Gram} Refills: 0 Ordered: 01-Feb-2016 Start: 21-Sep-2014 End: 01-Feb-2016 Status: Inactive Comments: Apply between the toes to affected area once or twice daily for at least 1 week; apply on the bottom or sides of feet twice daily for 2 weeks Comment on above: Apply between the to es to affected area once or twice daily for at least 1 week; apply on the bottom or sides of feet twice daily for 2 weeks triamcinolone acetonide 0.25 mg/ml topical cream (20 sources) Corticosteroid Start: 12-21-2019 End: 01-25-2022 Triamcinolone Acetonide 0.025 % External Cream ; 1 (one) Application two times daily affected area for 0 days Quantity: 80 {Gram} Refills: 0 Ordered: 25-Jan-2022 KAEL Noonan Start: 21-Dec-2019 End: 25-Jan-2022 Status: Inactive Start: 08-20-2016 End: 06-14-2020 take 2 spray(s) nasal route once daily at bedtime Nasacort Allergy 24HR 55 MCG/ACT Nasal Aerosol ; 2 (two) sprays sprays each nostril daily at bedtime for 0 days Quantity: 1 {Bottle} Refills: 0 Ordered: 14-Jun-2020 KAEL Noonan Elizabeth Start: 20-Aug-2016 End: 14-Jun-2020 Status: Inactive Turmeric Root Extract (1 source) Start: 09-04-2020 End: 02-05-2024 Turmeric Root Extract 500 MG capsule Discontinued 500 mg PO NEEDED as needed for arthritis September 04, 2020 1:00am February 05, 2024 10:43am Problems Active Problems Problem Classification Problem Date Documented Da te Episodic/Chronic Acute bronchitis (20 sources) Acute bronchitis; Translations: [Acute bronchitis, unspecified] 07-07-2019 Episodic Anal and rectal conditions (20 sources) Proctitis; Translations: [Other specified diseases of anus and rectum] 09-18-2023 Episodic Asthma (20 sources) Asthma; Translations: [Unspecified asthma, uncomplicated] 09-21-2014 Chronic Cardiac dysrhythmias (20 sources) Paroxysmal atrial fibrillation; Translations: [Pulse regularly irregular] 01-29-2024 Chronic Comment on above: In the setting of CO VID and bilateral PEs 2019 Chronic obstructive pulmonary disease and bronchiectasis (3 sources) Chronic bronchitis 03-26-2018 Chronic Chronic obstructive pulmonary disease and bronchiectasis (20 sources) Bronchitis; Translations: [Bronchitis, not specified as acute or chronic] 2022 Episodic Coronary atherosclerosis and other heart disease (20 sources) Coronary arteriosclerosis; Translations: [Atherosclerotic heart disease of douglas coronary artery without angina pectoris] 09-18-2023 Chronic Comment on above: Dr Bailey (cardiology ) Stent x 3 2005, stent x 1 2017 Coronary atherosclerosis and other heart disease (3 sources) Stented coronary artery 01-29-2024 Episodic Comment on above: 2005 PTCA and MINA to RCA and left circumflex 2018- PCI and MINA to distal RCA Disorders of lipid metabolism (20 sources) Hyperlipidemia; Translations: [Hyperlipidemia, unspecified] 09-18-2023 Chronic Comment on above: atorvastatin 40mg; 1 0 year CV risk = 28.8% Essential hypertension (20 sources) Hypertensive disorder; Translations: [Essential (primary) hypertension] 03-26-2018 Chronic Genitourinary symptoms and ill-defined conditions (20 sources) Dysuria; Translations: [Dysuria] Onset: 11-25-2023 09-18-2023 Episodic Hyperplasia of prostate (20 sources) Benign prostatic hypertrophy with outflow obstruction; Translations: [Benign prostatic hyperplasia with lower urinary tract symptoms] Onset: 02-11-2024 09-18-2023 Chronic Comment on above: Dr. Vázquez Immunizations and screening for infectious disease (20 sources) Needs influenza immunization; Translations: [Encounter for immunization] 06-03-2019 Episodic Inflammatory conditions of male genital organs (20 sources) Acute prostatitis; Translations: [Acute prostatitis] 06-03-2019 Episodic Mycoses (20 sources) Tinea pedis; Translations: [Tinea pedis] 07-07-2019 Episodic Nonmalignant breast conditions (20 sources) Gynecomastia; Translations: [Hypertrophy of breast] 09-18-2023 Episodic Comment on above: LEFT Left Nonspecific chest pain (3 sources) Chest pain; Translations: [Chest pain, unspecified] Onset: 02-02-2025 02-02-2025 Episodic Osteoarthritis (1 source) Arthritis; Translations: [Unspecified osteoarthritis, unspecified site] 08-02-2020 Chronic Other aftercare (20 sources) Post-discharge follow-up; Translations: [Encounter for follow-up examination after completed treatment for conditions other than malignant neoplasm] 09-18-2023 Episodic Other circulatory disease (1 source) Bruit; Translations: [Other specified symptoms and signs involving the circulatory and respiratory systems] 02-02-2020 Episodic Other diseases of bladder and urethra (20 sources) Diverticulum of bladder; 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] Onset: 02-11-2024 09-25-2023 Chronic Other diseases of bladder and urethra (2 sources) Diverticulum of bladder; 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] Onset: 07-01-2024 Chronic Other infections; including parasitic (20 sources) Personal history of other infectious and parasitic diseases 09-18-2023 Episodic Other lower respiratory disease (20 sources) Nodule of lung; Translations: [Solitary pulmonary nodule] 09-18-2023 Episodic Other lower respiratory disease (2 sources) Dyspnea; Translations: [Shortness of breath] 02-02-2025 Episodic Other lower respiratory disease (1 source) Lung mass; Translations: [Other nonspecific abnormal finding of lung field] 09-29-2020 Episodic Other lower respiratory disease (2 sources) Shortness of breath; Translations: [Shortness of breath] Onset: 02-02-2025 Episodic Other male genital disorders (5 sources) Spermatocele 01-19-2024 Episodic Other non-traumatic joint disorders (20 sources) Pain in right hip joint; Translations: [Pain in right hip] 09-18-2023 Episodic Other non-traumatic joint disorders (20 sources) Hip pain; Translations: [Pain in right hip] 05-10-2024 Episodic Other nutritional; endocrine; and metabolic disorders (20 sources) Disorder of carbohydrate metabolism; Translations: [Other disorders of intestinal carbohydrate absorption] 09-18-2023 Chronic Other nutritional; endocrine; and metabolic disorders (20 sources) Overweight in adulthood with body mass index of 25 or more but less than 30; Translations: [Body mass index (BMI) 28.0-28.9, adult] 06-03-2019 Episodic Other nutritional; endocrine; and metabolic disorders (20 sources) Overweight; Translations: [Overweight] 09-18-2023 Episodic Other nutritional; endocrine; and metabolic disorders (12 sources) Body mass index 25-29 - overweight; Translations: [Body mass index (BMI) 28.0-28.9, adult] 06-03-2019 Episodic Other screening for suspected conditions (not mental disorders or infectious disease) (20 sources) Imaging of thorax abnormal; Translations: [Abnormal findings on diagnostic imaging of other specified body structures] 09-18-2023 Chronic Other screening for suspected conditions (not mental disorders or infectious disease) (20 sources) Patient encounter status; Translations: [Encounter for screening for malignant neoplasm of colon] 01-12-2018 Episodic Other skin disorders (20 sources) Pigmented skin lesion ; Translations: [Disorder of pigmentation, unspecified] 09-18-2023 Episodic Other skin disorders (20 sources) Seborrheic keratosis; Translations: [Other seborrheic keratosis] 09-18-2023 Episodic Other upper respiratory infections (20 sources) Sinusitis; Translations: [Chronic sinusitis, unspecified] 06-03-2019 Chronic Other upper respiratory infections (20 sources) Upper respiratory infection; Translations: [Acute upper respiratory infection, unspecified] 09-18-2023 Episodic Peripheral and visceral atherosclerosis (2 sources) Intermittent claudication; Translations: [Peripheral vascular disease, unspecified] Onset: 04-14-2024 02-05-2024 Chronic Pneumonia (except that caused by tuberculosis or sexually transmitted disease) (20 sources) Pneumonia; Translations: [Pneumonia, unspecified organism] 06-03-2019 Episodic Spondylosis; intervertebral disc disorders; other back problems (20 sources) Low back pain; Translations: [Lumbago] 09-18-2023 Episodic Sprains and strains (20 sources) Shoulder strain; Translations: [Strain of unspecified muscle, fascia and tendon at shoulder and upper arm level, unspecified arm, initial encounter] 09-18-2023 Episodic Unclassified (20 sources) [facility] - In general the patient feels well with minor complaints (back pain). The patient has a balanced diet. The patient exercises none (Active lifestyle) and sleeps 8 hours per night. The patient denies having trouble with bathing, dressing/grooming, toileting, preparing meals and ambulating. The patient denies having trouble with grocery shopping, driving, use of telephone, housework, laundry, preparing/taking medications and finances. 05-07-2023 Unclassified (20 sources) [facility] - In general the patient feels well with minor complaints (pt said he had covid and pneumonia 2 weeks ago and is unsure if he is totally over that), has good energy level and is sleeping well. The patient has a balanced diet. The patient exercises none (pt is active daily) and sleeps 8 hours per night. The patient denies having trouble with bathing, dressing/grooming, toileting, preparing meals and ambulating. The patient denies having trouble with grocery shopping, driving, use of telephone, housework, laundry, preparing/taking medications and finances. The patient has a Healthcare Power of Unleavened Dough Mixer and a Living Will. Note for [facility]: TANIA 12/21/19last labs 06/07/20- cmp lipid, a1c pt never got 06-15-2020 Unclassified (20 sources) [facility] - In general the patient feels well with no complaints, has good energy level (does become more tired in the evenings) and is sleeping well. The patient has a balanced diet and takes supplemental vitamins. The patient exercises none (stays active) and sleeps 8 hours per night. The patient denies having trouble with bathing, dressing/grooming, toileting, preparing meals and ambulating. The patient denies having trouble with grocery shopping, driving, use of telephone, housework, laundry, preparing/taking medications and finances. The patient does not have Healthcare Power of Unleavened Dough Mixer or Living Will. Note for [facility]: TANIA 04/2018.Labs printed to review today. 06-03-2019 Unclassified (20 sources) [ADDITIONAL REASON] Transition into care - The patient is transitioning into care from another physician (Cardiology 03/2019 and Urology 02/25/2019) and a summary of care was reviewed. 06-03-2019 Unclassified (20 sources) Chronic cough - The onset of the cough has been acute and has been occurring in a persistent pattern for 1 year. The course has been increasing. The cough is characterized as productive of mucoid sputum. The symptoms are not aggravated by smoking, particular position or exercise. The symptoms have been associated with dyspnea (shortness of breath), headache (on occasion), hoarseness (at times), sore throat (scratchy) and wheezing, but have not been associated with chest pain or fever. 02-09-2015 Unclassified (20 sources) [facility] Routine Follow up - The patient is here for follow-up of hyperlipidemia (Last rtn visit 02/03/14. Last labs 08/2011.) and other condition(s) (Asthma). The patient always takes the prescribed medications. No side effects noted. The patient has an active lifestyle but no regular program. The patient's out of office blood pressure checks occur rarely and dietary compliance is fairly good usually adhering to recommendations. The patient states that breathing effort is stable, there is no recent angina or dyspnea, there are no vision changes or weakness, weight is unchanged, mood is unchanged and they do not have headaches. Note for Routine chronic follow-up: Patient reports that he thinks the Advair was more effective than the Symbicort has been. Patient declines a flu shot today. 04-07-2014 Unclassified (7 sources) Transition into care - The patient is transitioning into care from another physician (Cardiology 03/2019 and Urology 02/25/2019) and a summary of care was reviewed. 06-03-2019 Unclassified (7 sources) [ADDITIONAL REASON] [facility] - In general the patient feels well with no complaints, has good energy level (does become more tired in the evenings) and is sleeping well. The patient has a balanced diet and takes supplemental vitamins. The patient exercises none (stays active) and sleeps 8 hours per night. The patient denies having trouble with bathing, dressing/grooming, toileting, preparing meals and ambulating. The patient denies having trouble with grocery shopping, driving, use of telephone, housework, laundry, preparing/taking medications and finances. The patient does not have Healthcare Power of Unleavened Dough Mixer or Living Will. Note for [facility]: TANIA 04/2018.Labs printed to review today. 06-03-2019 Unclassified (7 sources) Eye glasses, device (physical object) 03-26-2018 Unclassified (3 sources) History of SARS-CoV-2 01-29-2024 Comment on above: 2019 Hospitalized, b ilateral PEs, new onset PAF Unclassified (19 sources) [facility] - In general the patient feels well with no complaints. The patient has a balanced diet. The patient exercises none (Active) and sleeps 8 hours per night. The patient denies having trouble with bathing, dressing/grooming, toileting, preparing meals and ambulating. The patient denies having trouble with grocery shopping, driving, use of telephone, housework, laundry, preparing/taking medications and finances. Note for [facility]: Needs refill, did not have labs drawn 05-10-2024 Urinary tract infections (7 sources) Hemorrhagic cystitis 03-26-2018 Episodic Past or Other Problems Problem Classification Problem Date Documented Da te Episodic/Chronic Unclassified (20 sources) Cold Symptoms - Symptoms include nasal congestion, runny nose, sore throat, productive cough, wheezing, general malaise and headache. The onset was sudden 1 week(s) ago. The symptoms occur constantly. The patient describes this as moderate in severity and worsening. The patient is not currently being treated for this problem. Note for Upper respiratory infection: Patient states he feels congested mostly in his chest. Chest feels tight when coughing, otherwise has no SOB. 09-18-2023 Unclassified (20 sources) Follow up consultation - The patient is here to follow-up after Emergency Room/Urgent Care (Patient was at [facility] on 04/12/23 for pneumonia. Had Negative Covid-19 test. Was given Rocephin there. Patient was discharged home with Zpak and Keflex. He is almost finished with Zpak. He took one dose of the Keflex last night, the directions on the Keflex bottle says 1 every 8 hours as needed.). Current symptoms include cough (productive cough. Denies shortness of breath or wheezing.). Note for Consultation follow-up: Overall, He is feeling better. 04-15-2023 Unclassified (20 sources) [ADDITIONAL REASON] Transition into care - The patient is transitioning into care from an emergency room ([facility] 04/12/23) and a summary of care was reviewed. 04-15-2023 Unclassified (20 sources) Hip pain - The onset of the hip pain has been acute and has been occurring in a persistent pattern for 3 weeks. The course has been constant. The hip pain is described as being a dull aching located in the groin (right), in the hip (right) and in the anterior thigh (right). The hip pain radiates to the down the entire leg. The pain is aggravated by general physical activity, sitting, climbing stairs, bending and squatting. Relieving factors include rest. Note for Hip pain: Patient notes that he is currently see a chiropractor for back pain which has improved with treatment, however his hip pain has remained constant without change despite chiropractics. 04-07-2023 Unclassified (20 sources) [facility] - In general the patient feels well with no complaints, has good energy level and is sleeping well. The patient has a balanced diet and takes no supplemental vitamins & iron. The patient exercises none (no planned exercise) and sleeps 8 hours per night. The patient denies having trouble with bathing, dressing/grooming, toileting, preparing meals and ambulating. The patient denies having trouble with grocery shopping, driving, use of telephone, housework, laundry, preparing/taking medications and finances. The patient has a Healthcare Power of Unleavened Dough Mixer and a Living Will. Note for [facility]: Labs printed to review today (CMP, Lipid, and PSA).Last colonoscopy 02/26/2018. 2022 Unclassified (20 sources) Cold Symptoms - Symptoms include nasal congestion, runny nose, purulent discharge, ear pain (when he is in the cold air), productive cough and headache, but do not include dry cough, wheezing, fever, chills, general malaise or facial pain. The onset was gradual 10 day(s) ago. The symptoms occur constantly. The patient describes this as moderate in severity and unchanged. The patient is not currently being treated for this problem. The patient has not been exposed to an individual with similar symptoms. Patient denies history of recurrent sinusitis. Note for Upper respiratory infection: Pt has been taking Mucinex and dayquil which has helped 04-03-2022 Unclassified (20 sources) Skin lesion - The skin lesion has been occurring for 3 years. It has been unchanging in size. The lesion is characterized as brown. 01-30-2022 Unclassified (20 sources) Skin ulcer/open sore - Symptoms include erythema, an open sore, pain and tenderness. Symptoms are located on the face. Onset was sudden 1 day(s) ago. There is no known event that preceded symptom onset. The patient describes this as worsening. Associated symptoms do not include fever. Risk factors do not include smoking. Note for Skin ulceration: pt has a mole on his face and he picked at it and its now hanging there and bleeding and sore-- wants it removed pt also has another mole on the side of his face he wants u to look at 01-26-2022 Unclassified (20 sources) nipple pain - left nipple is sorebeen like this for a few weeksthought we felt a lump but doesnt anymoredoesnt think he hit it or anythingdoesnt hurt unless he brushes against it today is better than it has been 12-21-2019 Unclassified (20 sources) Cold Symptoms - Symptoms include sneezing, runny nose, scratchy throat and productive cough, but do not include ear pain, ear fullness, fever, chills, general malaise or headache. The onset was sudden 3 week(s) ago. The symptoms occur constantly. The patient describes this as moderate in severity and worsening (cough is worse). Current treatment includes non-prescription cold medication. Note for Upper respiratory infection: reviewed by [facility] 07-07-2019 Unclassified (20 sources) Cold Symptoms - Symptoms include nasal congestion, ear fullness, scratchy throat, hoarseness, productive cough and fever (101.6 friday). The onset was sudden 2 day(s) ago. The symptoms occur constantly. The patient describes this as moderate in severity and unchanged. Current treatment includes non-prescription cold medication (mucinex). Risk factors do not include smoking. The patient has been exposed to an individual with similar symptoms. Note for Upper respiratory infection: having surgery 06/1005-29-2018 Unclassified (20 sources) [facility] - In general the patient feels well with minor complaints, has good energy level and is sleeping well. The patient has a balanced diet and takes no supplemental vitamins & iron. The patient does not exercise and sleeps 8 hours per night. The patient denies having trouble with bathing, dressing/grooming, toileting, preparing meals and ambulating. The patient denies having trouble with grocery shopping, driving, use of telephone, housework, laundry, preparing/taking medications and finances. The patient does not have Healthcare Power of Unleavened Dough Mixer or Living Will. 04-13-2018 Unclassified (20 sources) Recheck - Patient is here today for recheck. Was last seen on 08/11/2017 for prostatitis, started on Cipro 500mg X 10 days. Started 2nd round of Cipro on 08/22/2017. Had heart cath preformed on 10/03/2017. One night at the hospital, urine was reddish in color once, then urine was clear. Noticed blood in his urine yesterday, was still red tinged this morning but is currently light yellow in color. No clots noticed. Continues to have burning with urination and urinary frequency. Reports that if he waits to long to void, will have trouble voiding. Has pain of kidney area of lower back at times. No nausea, vomiting, fever. 10-10-2017 Unclassified (20 sources) Concern - Patient is here today to have prostate checked. For the past 2-3 weeks, been having burning with urination, lower abdominal pressure. No hesitancy or dribbling. Does have urinary frequency, that has occurred for years. About 10 years ago, had surgery for placement of 3 cardiac stents. Does not currently see a batter mixer helper and would like to discuss being referred to a batter mixer helper. Will have shortness of breath with activity. Becomes tired easily. Notices his heart rate being irregular, no heart racing. Denies having chest pain. No recent labs. 08-11-2017 Unclassified (20 sources) Cold Symptoms - Symptoms include nasal congestion, runny nose, scratchy throat, dry cough and productive cough, but do not include ear pain, ear fullness, sore throat, fever or headache. The onset was gradual week(s) ago. The symptoms occur constantly. The patient describes this as moderate in severity and worsening. Current treatment includes an oral decongestant. Risk factors do not include child in daycare or smoking. The patient has not been exposed to an individual with a cough, an individual with an upper respiratory infection, an individual with similar symptoms or an individual with strep. 08-20-2016 Unclassified (20 sources) Shoulder pain - The onset of the shoulder pain has been sudden following an incident not at work and has been occurring in a persistent pattern for 1 month. The course has been constant. The pain is characterized as a moderate dull aching. The pain is described as being located in the right shoulder and is aggravated by any movement. Relieving factors include rest. The symptoms have been associated with painful ROM and decreased ROM. The shoulder pain was preceded by trauma (fell at home). 02-05-2016 Unclassified (20 sources) Cold Symptoms - Symptoms include nasal congestion, ear pain (bilateral), sore throat and productive cough, but do not include sneezing, runny nose, fever, chills, general malaise, headache or facial pain. The onset was sudden 2 month(s) ago. The symptoms occur intermittently. The patient describes this as moderate in severity and worsening. Current treatment includes allergy medications. Medical history includes seasonal allergies. 11-20-2015 Unclassified (20 sources) Cough - The onset of the cough has been acute and has been occurring in a persistent pattern for 2 weeks. The course has been constant. The cough is characterized as productive of mucoid sputum. The cough occurs all the time. Associated symptoms include sinus discharge and sore throat (some), while there is no fever, headache or runny nose. Note for Cough: Hasn't been using symbicort because didn't feel it was helping. Cough is worse at night - uses albuterol inhaler at that time which helps. 09-21-2014 Unclassified (20 sources) [ADDITIONAL REASON] Rash - The onset of the rash has been gradual and has been occurring in a persistent pattern for months (Since January.). The course has been recurrent. The rash is characterized as red and crusty. The rash was first seen on the lower extremity (Right foot between toes; right now it is better but you can still see it - crusty. When it flares up the skin falls off.). There has been no progression. There has been associated itching. Note for Rash: Used an OTC med advised by pharmacist but it didn't clear it up (he is unsure of name). Also doing epsom salt soaks. 09-21-2014 Unclassified (20 sources) Cold Symptoms - Symptoms include sore throat (couple mornings), productive cough and headache, but do not include nasal congestion, runny nose, ear pain or fever. The onset was gradual 1 week(s) ago. The symptoms occur constantly. The patient describes this as moderate in severity and unchanged. The patient has not been exposed to an individual with similar symptoms. Medical history includes recurrent sinusitis, but patient denies history of seasonal allergies, recurrent strep pharyngitis, asthma, tonsillectomy or recurrent ear infections. Note for Upper respiratory infection: Using OTC mucinex. Recently returned from [place]. No shortness of breath or wheezing. 08-03-2014 Unclassified (20 sources) Cold Symptoms - Symptoms include productive cough (Pain in right chest - non-exertional. Shortness of breath and chest tightness at times. Always has mucous (PND). Has asthma. Has used symbicort and advair without noticable improvement; isn't using either inhaler now. Has an albuterol inhaler but rarely uses it. Non-smoker. Coughs at times - varies in amount. No fever.), but do not include nasal congestion, runny nose, sore throat or wheezing. The onset was gradual year(s) ago (is trying advair discus sample. Gotten worse in march.). The symptoms occur constantly. The patient describes this as moderate in severity and unchanged. The patient has not been exposed to an individual with similar symptoms. Medical history includes asthma, but patient denies history of seasonal allergies, recurrent sinusitis, recurrent strep pharyngitis, tonsillectomy or recurrent ear infections. Note for Upper respiratory infection: Would like to see Dr Burns. Has not had pneumonia vaccine. 05-30-2014 Unclassified (20 sources) Cough - The onset of the cough has been variable and has been occurring in a persistent pattern for months. The course has been increasing. The cough is characterized as dry. There is no sputum production. The cough occurs all the time. The cough is aggravated by the supine posture. Associated symptoms include chest pain (tightness) and hoarseness, while there is no dyspnea, fever, long history of smoking or wheezing. 02-03-2014 Unclassified (20 sources) Cold Symptoms - Symptoms include sneezing, purulent discharge, hoarseness and productive cough. The onset was gradual month(s) ago. The symptoms occur constantly. The patient describes this as moderate in severity and unchanged. Current treatment includes non-prescription cold medication (mucinex), allergy medications (claritin) and antibiotics (has had 2 rounds of zithromax this winter). Risk factors do not include smoking. The patient has been exposed to an individual with similar symptoms. Medical history includes seasonal allergies. 10-12-2013 Unclassified (20 sources) Cold Symptoms - Symptoms include nasal congestion, runny nose, ear pain, ear fullness, hoarseness, productive cough, fever, chills, general malaise, headache and facial pain. The onset was sudden 3 day(s) ago. The symptoms occur constantly. The patient describes this as moderate in severity and worsening. Current treatment includes non-prescription cold medication, rest and increased fluid intake. Risk factors do not include smoking. 09-07-2012 Unclassified (20 sources) Cold Symptoms - Symptoms include nasal congestion, non-purulent sputum (drains down throat), ear pain, sore throat, productive cough (tightness in chest), general malaise and headache. The onset was sudden 2 week(s) ago. The symptoms occur constantly. The patient describes this as severe and unchanged. Current treatment includes non-prescription cold medication (mucinex and asa). Medical History Includes seasonal allergies and recurrent sinusitis. 10-26-2010 Unclassified (8 sources) Transition into care - The patient is transitioning into care from an emergency room ([facility] 04/12/23) and a summary of care was reviewed. 04-15-2023 Unclassified (8 sources) [ADDITIONAL REASON] Follow up consultation - The patient is here to follow-up after Emergency Room/Urgent Care (Patient was at [facility] on 04/12/23 for pneumonia. Had Negative Covid-19 test. Was given Rocephin there. Patient was discharged home with Zpak and Keflex. He is almost finished with Zpak. He took one dose of the Keflex last night, the directions on the Keflex bottle says 1 every 8 hours as needed.). Current symptoms include cough (productive cough. Denies shortness of breath or wheezing.). Note for Consultation follow-up: Overall, He is feeling better. 04-15-2023 Unclassified (7 sources) Rash - The onset of the rash has been gradual and has been occurring in a persistent pattern for months (Since January.). The course has been recurrent. The rash is characterized as red and crusty. The rash was first seen on the lower extremity (Right foot between toes; right now it is better but you can still see it - crusty. When it flares up the skin falls off.). There has been no progression. There has been associated itching. Note for Rash: Used an OTC med advised by pharmacist but it didn't clear it up (he is unsure of name). Also doing epsom salt soaks. 09-21-2014 Unclassified (7 sources) [ADDITIONAL REASON] Cough - The onset of the cough has been acute and has been occurring in a persistent pattern for 2 weeks. The course has been constant. The cough is characterized as productive of mucoid sputum. The cough occurs all the time. Associated symptoms include sinus discharge and sore throat (some), while there is no fever, headache or runny nose. Note for Cough: Hasn't been using symbicort because didn't feel it was helping. Cough is worse at night - uses albuterol inhaler at that time which helps. 09-21-2014 Unclassified (8 sources) Cold Symptoms - Symptoms include nasal congestion, runny nose, non-purulent sputum and productive cough, but do not include fever. The onset was gradual 4 week(s) ago. The symptoms occur constantly. The patient describes this as moderate in severity and unchanged. Current treatment includes allergy medications. The patient has not been exposed to an individual with similar symptoms. Medical history includes seasonal allergies. 11-29-2024 Results Test Name Value Interpretation Reference Range Facility Cardiology Visit Reporton Cardiology Visit Report [facility] [address] [place] [address] OFFICE VISIT Date of Service: 02/02/25 MR#: [id number] Acct: [id number] Name: NACHO FRAZIER Jr. Rep #: [id number] : 1945 Provider: Dr. Jay alcantar MD Age/Sex: 79/M Location: [facility] Status: Signed HPI HPI History of Present Illness Details: Patient is a pleasant 79-year-old white male that comes in today for monitoring of his cardiovascular disease. Patient carries a history of known coronary disease status post stenting of the right coronary in 2017 which was the last of multiple stenting procedures. His most recent stress test was in February 2020 where he had a normal perfusion stress test with no evidence of ischemia. The patient now comes in reporting that episodically he is having shortness of breath for the last 5 to 6 months is associated with discomfort running down both arms. He thinks this is similar to what he had prior to his blockages in the past. However it is not completely predictable. He can go several days and have no effect and does his activities of daily living without incident. And then he will have an episode which resolves within a few minutes of taking the Tylenol. He is then able to go about his business and do his activities all day long without any restrictions. The patient also has a history of paroxysmal atrial fibrillation with COVID and a pulmonary embolus in April 2020 echocardiogram at that point in time showed an EF of 65% and normal LV function. There is no significant valvular heart disease noted. The patient also has a history of hypertension which is well-controlled he has a history of hyperlipidemia which is managed by the primary service. He does report that his HDL was low but he thought that his LDL was adequately controlled. His target LDL would be less than 70. Intake Vital Signs 02/05/24 14:09 02/02/25 13:52 Height 5 ft 6 in 5 ft 6 in Weight: 188 lb 186 lb BMI 30.3 29.9 BP 146/89 H 118/66 Blood Pressure Location Lt brachial Lt brachial Position Sitting Sitting Respiration 18 18 Pulse 97 64 Pulse Source Monitor Monitor Pulse Oximetry (%) 93 94 Oxygen Delivery Method room air room air Intake Visit Reasons: 1 Y FU [employer]izer Required: No Accompanied by: Self Is patient in pain?: No Allergies Penicillins Allergy (Verified 02/02/25 13:53) Rash Medications ???Medication ???Instructions ???Recorded ???Confirmed ???Type aspirin 81 mg tablet,delayed 81 mg PO DAILY 06/08/20 02/02/25 H istory release atorvastatin 40 mg tablet 40 mg PO DAILY 02/05/24 02/02/25 H istory cetirizine 10 mg tablet (Zyrtec) 10 mg PO DAILY PRN 02/05/24 History lisinopril 10 mg tablet 10 mg PO QDAY 02/02/25 02/02/25 Hi story Ejection fraction %: 65 Have you fallen in the past year?: No PFSH Medical History Right hip pain Low back pain Tinea pedis COVID-19 Hyperpigmented skin lesion Proctitis Seborrheic keratoses Asthmatic bronchitis Gynecomastia PAF (paroxysmal atrial fibrillation) Essential (primary) hypertension Bruit Arthritis Prostatitis Atherosclerosis of coronary artery of [place]oug[place] heart without angina pectoris Hyperlipidemia Surgical History History of colonoscopy H/O transurethral resection of prostate History of cystoscopy History of prostate surgery History of appendectomy History of coronary artery stent placement (10/03/17) Family History Father CAD (coronary artery disease) Myocardial infarction from [place] Brother Heart disease Cancer Mother Heart disease Other Hypertension Social History other: Smoking Status: Never smoker alcohol intake: never caffeine: Yes Type: coffee Number of servings: 2 ROS Const Const: Negative for fatigue or weakness ENT ENT: Negative for dizziness or balance problems Cardio Chest Pain: No Palpitations: No Edema: None Muscle aches with walking: None Resp Respiratory: Positive for SOB with activity and SOB at rest; Negative for SOB orthopnea SOB lying down GI GI: Negative nausea, vomiting or heartburn Musc Musc: Negative for muscle weakness or balance problems Neuro Neuro: Negative for dizziness, lightheadedness, near syncope, syncope or weakness Endo Endo: Negative for fatigue Cardiology Exam Const Appearance: cooperative, healthy appearing, comfortable, no acute distress and well developed Head Head: normal to inspection Eyes General: appearance normal, both eyes and all related structures Neck Neck: normal visual (more content not included)... Normal [facility] LIPID PANEL, STANDARDon 07-01 Cholesterol [Mass/Vol] 143 mg/dL Normal <200 [facility] Comment on above: Performed By: #### 7 600 #### [facility] [address], [address] [place] [address] Dogman/Woman: Hilton Chavez MD Cholesterol in HDL [Mass/Vol] 39 mg/dL Low > OR = 40 [facility] Comment on above: Performed By: #### 7 600 #### [facility] [address], [address] [place] [address] Dogman/Woman: Hilton Chavez MD Cholesterol in LDL [Mass/Vol] 82 mg/dL Normal [facility] Comment on above: Result Comment: Refe rence range: <100 Desirable range <100 mg/dL for primary prevention; <70 mg/dL for patients with CHD or diabetic patients with > or = 2 CHD risk factors. LDL-C is now calculated using the Apollo-Jacque calculation, which is a validated novel method providing better accuracy than the Friedewald equation in the estimation of LDL-C. Apollo SS et al. PACO. 2013;310(19): 1667-0077 (http://education.Intell[employer]/faq/IMZ191) Performed By: #### 7 600 #### [facility] [address], [address] [place] [address] Dogman/Woman: Hilton Chavez MD Cholesterol.total/Ch olesterol in HDL [Mass ratio] 3.7 {ratio} Normal <5.0 [facility] Comment on above: Performed By: #### 7 600 #### [facility] [address], [address] [place] [address] Dogman/Woman: Hilton Chavez MD NON HDL CHOLESTEROL 104 mg/dL (calc) Normal <130 [facility] Comment on above: Result Comment: For patients with diabetes plus 1 major ASCVD risk factor, treating to a non-HDL-C goal of <100 mg/dL (LDL-C of <70 mg/dL) is considered a therapeutic option. Performed By: #### 7 600 #### [facility] [address], [address] [place] [address] Dogman/Woman: Hilton Chavez MD Triglyceride [Mass/Vol] 128 mg/dL Normal <150 [facility] Comment on above: Performed By: #### 7 600 #### [facility] [address], [address] [place] [address] Dogman/Woman: Hilton Chavez MD Laboratory - Chemistry and C hemistry - challengeon 07-26-2024 Cholesterol [Mass/Vol] 143 mg/dL Normal [facility] [employer] [facility]. Cholesterol in HDL [Mass/Vol] 39 mg/dL Abnormal [place] [facility].; [employer], [employer]. Cholesterol in LDL [Mass/Vol] 82 mg/dL Normal [place] [facility].; [employer]. Triglyceride [Mass/Vol] 128 mg/dL Normal [place] [employer].; [employer], [employer]. No Panel Informationon 07-26 CHOL/HDLC RATIO 3.7 Normal [facility].; [employer]. NON HDL CHOLESTEROL 104 Normal [facility].; [employer]. Non-Certified Family Mediator Cytology Reporton Non-Certified Family Mediator Cytology Report . Pathology Reports Accession: Collected Date/Time: Received Date/Time: Pathologist: [id number] 07/01/2024 07:00 EST 07/02/2024 08:48 PATY PEREZ MD Non-Certified Family Mediator Cytology Report CLINICAL INFORMATION: Urothelial atypia DIAGNOSTIC CATEGORY: NEGATIVE FOR HIGH GRADE UROTHELIAL CARCINOMA. SPECIMEN: Urine GROSS DESCRIPTION: # of Monolayers: 1 Volume (ml) 80 Color: fixed clear yellow SUGGESTION/EDUCATIONAL NOTES: This sample was evaluated using standardized diagnostic criteria published in the 'Randa System for Reporting Urinary Cytology '(TPS), Second edition, 2021. The following Risk of High-grade urothelial carcinoma is based on published data from TPS. Individual institutional rates may vary. TPS Cytology Diagnostic category Risk of high-grade malignancy Non diagnostic 0-16% Negative for High grade urothelial carcinoma 8-24% Low grade urothelial neoplasm 0-44% Atypical Urothelial cells 24-53% Suspicious for High grade urothelial carcinoma 59-94% Malignant- High grade urothelial carcinoma 76-100% Electronically Signed by Pathology Report verified by [facility] Screened by: THUY MA Electronically signed by PATY GOLDSTEIN Sign-Out Date: 07/05/2024 14:07 Performing Lab: [facility], [address] [place] [address] Pathology Dept Disclaimer If ancillary studies were utilized, the following Laboratory Developed Test (LDT) disclaimer will apply: Under CLIA requirements, [facility] is qualified to perform high complexity testing. For all ancillary stains, positive and negative controls stain appropriately. Performance characteristics of immunohistochemical and chromogenic in-situ hybridization tests have been determined by [facility]. These tests are used for clinical purposes, They should not be regarded as investigational or for research. Normal [facility] Non-Certified Family Mediator Cytology Report . Pathology Reports Accession: Collected Date/Time: Received Date/Time: Pathologist: [id number] 06/30/2024 07:00 EST 07/02/2024 08:45 EST PATY GOLDSTEIN MD Non-Certified Family Mediator Cytology Report CLINICAL INFORMATION: Urothelial atypia DIAGNOSTIC CATEGORY: ATYPICAL UROTHELIAL CELLS. SPECIMEN: Urine GROSS DESCRIPTION: # of Monolayers: 1 Volume (ml) 80 Color: fixed clear yellow SUGGESTION/EDUCATIONAL NOTES: This sample was evaluated using standardized diagnostic criteria published in the 'Randa System for Reporting Urinary Cytology '(TPS), Second edition, 2021. The following Risk of High-grade urothelial carcinoma is based on published data from TPS. Individual institutional rates may vary. TPS Cytology Diagnostic category Risk of high-grade malignancy Non diagnostic 0-16% Negative for High grade urothelial carcinoma 8-24% Low grade urothelial neoplasm 0-44% Atypical Urothelial cells 24-53% Suspicious for High grade urothelial carcinoma 59-94% Malignant- High grade urothelial carcinoma 76-100% Electronically Signed by Pathology Report verified by [facility] Screened by: THUY MA Electronically signed by PATY GOLDSTEIN Sign-Out Date: 07/05/2024 14:07 Performing Lab: [facility], [address] [place], [place] [address] [facility] Pathology Dept Disclaimer If ancillary studies were utilized, the following Laboratory Developed Test (LDT) disclaimer will apply: Under CLIA requirements, [facility] is qualified to perform high complexity testing. For all ancillary stains, positive and negative controls stain appropriately. Performance characteristics of immunohistochemical and chromogenic in-situ hybridization tests have been determined by [facility]. These tests are used for clinical purposes, They should not be regarded as investigational or for research. Normal [facility] Non-Certified Family Mediator Cytology Report . Pathology Reports Accession: Collected Date/Time: Received Date/Time: Pathologist: [id number] 06/29/2024 07:00 EST 07/02/2024 08:43 PATY PEREZ MD Non-Certified Family Mediator Cytology Report CLINICAL INFORMATION: Urothelial atypia DIAGNOSTIC CATEGORY: NEGATIVE FOR HIGH GRADE UROTHELIAL CARCINOMA. Reactive changes present. SPECIMEN: Urine GROSS DESCRIPTION: # of Monolayers: 1 Volume (ml) 80 Color: fixed clear yellow SUGGESTION/EDUCATIONAL NOTES: This sample was evaluated using standardized diagnostic criteria published in the 'Randa System for Reporting Urinary Cytology '(TPS), Second edition, 2021. The following Risk of High-grade urothelial carcinoma is based on published data from TPS. Individual institutional rates may vary. TPS Cytology Diagnostic category Risk of high-grade malignancy Non diagnostic 0-16% Negative for High grade urothelial carcinoma 8-24% Low grade urothelial neoplasm 0-44% Atypical Urothelial cells 24-53% Suspicious for High grade urothelial carcinoma 59-94% Malignant- High grade urothelial carcinoma 76-100% Electronically Signed by Pathology Report verified by [facility] Screened by: THUY MA Electronically signed by PATY GOLDSTEIN Sign-Out Date: 07/05/2024 14:06 Performing Lab: [facility], [address] [place] [address] [place] Pathology Dept Disclaimer If ancillary studies were utilized, the following Laboratory Developed Test (LDT) disclaimer will apply: Under CLIA requirements, [facility] is qualified to perform high complexity testing. For all ancillary stains, positive and negative controls stain appropriately. Performance characteristics of immunohistochemical and chromogenic in-situ hybridization tests have been determined by [facility]. These tests are used for clinical purposes, They should not be regarded as investigational or for research. Normal [facility] LIPID PROFILEon 05-18-2024 Lipid 1996 panel Normal [facility] Comment on above: Result Comment: LIPI D PROFILE SEE SEPERATE REPORT Performed By: #### 2 92939 #### [facility],[address] [place] [address] CMP with eGFRon 05-17-2024 AGE 79 years Normal [facility] Comment on above: Performed By: #### 2 94535 #### [facility],[address] [place] [address] Albumin [Mass/Vol] 3.6 g/dL Normal 3.4 - 5.0 g/dL [facility], [facility].; [facility], [facility]. Comment on above: Performed By: #### 2 95721 #### [facility],[address] [place] [address] Albumin/Globulin [Mass ratio] 1.0 {ratio} Normal 0.9 - 1.6 [facility] Comment on above: Performed By: #### 2 [address]19 #### [place] [address] ALK PHOS 118 U/L High 46 - 116 [facility] Comment on above: Performed By: #### 2 79296 #### [place] [address] ALT [Catalytic activity/Vol] 28 U/L Normal 16 - 63 U/L [facility], [facility].; [facility], [facility]. Comment on above: Performed By: #### 2 34263 #### [place] [address] Anion gap [Moles/Vol] 11 mmol/L Normal 10 - 20 mmol/L [facility], [facility].; [facility] Comment on above: Performed By: #### 2 95708 #### [facility],[address] [place] [address] AST [Catalytic activity/Vol] 18 U/L Normal 15 - 37 U/L [facility].; [facility], [facility]. Comment on above: Performed By: #### 2 23658 #### [place] [address] B/C RATIO 12 ratio Normal 0 - 30 [facility] Comment on above: Performed By: #### 2 75443 #### [place] [address] Bilirubin [Mass/Vol] 0.5 mg/dL Normal 0.2 - 1 .0 mg/dL [facility].; [facility], [facility]. Comment on above: Performed By: #### 2 64607 #### [place] [address] Calcium [Mass/Vol] 9.6 mg/dL Normal 8.5 - 10. 1 mg/dL [facility].; [facility], [facility]. Comment on above: Performed By: #### 2 76366 #### [place] [address] Chloride [Moles/Vol] 105 mmol/L Normal 98 - 10 7 mmol/L [facility].; [facility] Comment on above: Performed By: #### 2 18144 #### [place] [address] CMP with eGFR Normal [facility] Comment on above: Result Comment: COMP REHENSIVE METABOLIC PANEL Performed By: #### 2 74214 #### [place] [address] CO2 [Moles/Vol] 29.3 mmol/L Normal 21.0 - 32.0 mmol/L [facility].; [facility], [facility]. Comment on above: Performed By: #### 2 41153 #### [place] [id number] Creatinine [Mass/Vol] 1.12 mg/dL Normal 0.70 - 1.30 mg/dL [facility], [facility].; [facility], [facility]. Comment on above: Performed By: #### 2 84058 #### [place] [id number] GFR/1.73 sq M.predicted among non-blacks MDRD (S/P/Bld) [Vol rate/Area] mL/min/{1.73_m2} Normal 60 - 999 [facility] Comment on above: Performed By: #### 2 63334 #### [place] [address] Result Comment: ACCO RDING TO THE NATIONAL KIDNEY DISEASE EDUCATION PROGRAM(NKDE), A NORMAL eGFR IS A VALUE GREATER THAN OR EQUAL TO 60 ML/MIN/1.73 SQ METERS. CHRONIC KIDNEY DISEASE: <60mL/MIN/1.73 SQ METERS KIDNEY FAILURE: <15mL/MIN/1.73 SQ METERS THIS TEST SHOULD ONLY BE USED FOR PATIENTS 18 YEARS OF AGE AND OLDER. Globulin (S) [Mass/Vol] 3.5 g/dL Normal 1.5 - 3.8 g/dL [facility], [facility].; [facility], [facility]. Comment on above: Performed By: #### 2 42629 #### [address] [address] Glucose [Mass/Vol] 111 mg/dL Abnormal 74 - 106 mg/dL [facility], [facility].; [facility], [facility]. Comment on above: Performed By: #### 2 65641 #### [address] [address] Potassium [Moles/Vol] 4.6 mmol/L Normal 3.5 - 5.1 mmol/L [facility], [facility].; [facility], [facility]. Comment on above: Performed By: #### 2 13112 #### [address] [address] Protein [Mass/Vol] 7.1 g/dL Normal 6.4 - 8.2 g/dL [facility], [facility].; [facility], [facility]. Comment on above: Performed By: #### 2 39764 #### [address] [address] Sodium [Moles/Vol] 141 mmol/L Normal 136 - 145 mmol/L [facility], [facility].; [facility], [facility]. Comment on above: Performed By: #### 2 83980 #### [address] [address] Urea nitrogen [Mass/Vol] 13 mg/dL Normal 7 - 18 mg/dL [facility].; [facility], [facility]. Comment on above: Performed By: #### 2 57213 #### [address] [address] CV ECHO COMPLETE CV ECHO COMPLETE [place] [address] Patient: NACHO FRAZIER JR Phone#: : 1945 Age: 79 Gender: M Pt. Type: Out Account: [id number] Location: [facility] Ordering: YFN CARPIO Exam Date: 05/17/2024/9:08 Family Phys: Charge Code: [id number] Physician: [place] Order #: [id number] Dose#: PROCEDURE: ECHOCARDIOGRAM WITH DOPPLER AND COLOR FLOW HISTORY: Patient is 79-year-old male with history irregular heart rate INDICATIONS: ABN EKG COMPARISON: None. TECHNIQUE: A 2-D ultrasound, color spectral Doppler and M-mode evaluation of the heart and great vessels. PATIENT MEASUREMENTS: Height (in.): 66 BSA: 1.89 Weight (lbs.): 175 BP: 167/90 Magnet Placer: TERRELL M MODE 2D MEASUREMENTS AND CALCULATIONS: LVIDd: 3.73 cm LVIDs: 2.46 cm IVSd: 0.97 cm LVPWd: 1.42 cm LVOT diam: FS: 33.84 % Ao Root diam: 2.25 cm LA diam: 4.8 cm LA Volume Index: 22 ml/m2 LA A4 Area: 15.14 cm2 RA A4 Area: 9.7 cm2 RVDd: 3.3 cm TAPSE: 26 mm DOPPLER MEASUREMENTS AND CALCULATIONS MITRAL MV E MAX taqueria: 0.83 m/s MV A MAX taqueria: 1.17 m/s MV E-A ratio: 0.71 MV V2 max: 1.14 m/s MV max P.19 mm[Hg] MV V2 mean: 0.78 m/s MV mean P.60 mm[Hg] Continued Report - Page 2 of 3 Patient: NACHO FRAZIER JR Phone#: : 1945 Age: 79 Gender: M Pt. Type: Out Account: [id number] Location: [facility] Ordering: YFN CARPIO Exam Date: 05/17/2024/9:08 Family Phys: Charge Code: 644141 Physician: [place] Order #: [id number] Dose#: MV V2 VTI: 21.13 cm Lat Peak E' Taqueria Septal Peak E' TAQUERIA AORTIC Ao V2 max: 1.71 m/s Ao max P.71 mm[Hg] Ao V2 mean: 1.28 m/s Ao mean P.97 mm[Hg] Ao V2 VTI: 32.47 cm LV V1 Max 1.02 m/s LV V1 Max PG 4.17 mm[Hg] LV V1 Mean PG 3.02 mm[Hg] LV V1 mean 0.86 m/s LV V1 VTI 22.76 cm PULMONIC PA V2 Max 1.34 m/s PA Max PG 7.16 mm[Hg] TRICUSPID TR Max Taqueria TR max PG RVSP 2D/M-MODE AND COLOR FLOW LEFT VENTRICLE: Left ventricle is normal in size and thickness. Systolic ejection fraction is 55-60%. Grossly normal wall motion. Normal diastolic function WALL MOTION: 1 - Basal anterior: 7 - Mid anterior: Normal. 13 - Apical anterior: Normal. 2 - Basal anteroseptal: Normal. 8 - Mid anteroseptal: Normal. 14 - Apical septal: Normal. 3 - Basal inferoseptal: Normal. 9 - Mid inferoseptal: Normal. 15 - Apical inferior: Normal. 4 - Basal inferior: Normal. 10-Mid inferior: Normal. 16 - Apical lateral: Normal. 5 - Basal inferolateral: Normal. 11-Mid inferolateral: Normal. 6 - Basal anterolateral: 12-Mid anterolateral: Normal. RIGHT VENTRICLE: Right ventricle is normal size and systolic function LEFT ATRIUM: Left atrium is normal size. RIGHT ATRIUM: Right atrium is normal size ATRIAL SEPTUM: Inadequately visualized MITRAL VALVE: Mitral valve appears normal structure. There is trivial regurgitation no stenosis seen TRICUSPID VALVE: Tricuspid valve is normal structure. There is no regurgitation or stenosis seen AORTIC VALVE: Aortic valve is trileaflet with no regurgitation or stenosis seen PULMONIC VALVE: Pulmonic valve is normal structure. There is no regurgitation or stenosis seen Continued Report - Page 3 of 3 Patient: NACHO FRAZIER JR Phone#: : 1945 Age: 79 Gender: M Pt. Type: Out Account: [id number] Location: [facility] Ordering: YFN SHIRIN Exam Date: 05/17/2024/9:08 Family Phys: Charge Code: [id number] Physician: [place] Order #: [id number] Dose#: [id number] ROOT: Inadequately visualized AORTIC ARCH: Inadequately visualized DESC THORACIC AORTA: Inadequately visualized IVC/SVC: IVC is normal size more than 50% collapse of inspiration. Estimated atrial pressure is 3 mm Hg PULMONARY VEINS: Normal pulmonic vein PERICARDIUM: There is no pericardial effusion seen CONCLUSION: 1. Left ventricle is normal in size and thickness. Systolic ejection fraction 55-60%. Grossly normal wall motion. 2. There are no valvular dysfunction seen. 3. Right ventricle is normal in size and systolic function 4. TR velocity is inadequate to calculate for right ventricular systolic pressure. Dictated by: MARYANNE HUGHES MD on 05/17/2024 at 11:48 Approved by: MARYANNE HUGHES MD on 05/17/2024 at 12:00 Normal [facility] - Chemistry and C hemistry - challengeon 05-17-2024 Albumin [Mass/Vol] 1.0 g/dL Normal 0.9 - 1.6 [facility] ALP [Catalytic activity/Vol] 118 U/L Abnormal 46 - 116 U/L [facility].; [facility]. Cholesterol [Mass/Vol] 235 mg/dL Abnormal 0 - 200 mg/dL [facility].; [place] [facility], [facility]. Cholesterol in HDL [Mass/Vol] 37 mg/dL Abnormal 40 - 60 mg/dL [facility].; [place] [facility], [facility]. Cholesterol in LDL [Mass/Vol] 159 mg/dL Abnormal 50.0 - 130.0 mg/dL [facility].; [place] [facility], [facility]. Cholesterol in VLDL [Mass/Vol] 39 mg/dL Normal [place] [employer] [facility].; [place] [employer], [facility]. Cholesterol.total/Ch olesterol in HDL [Mass ratio] 6.35 {ratio} Abnormal 0 - 5.0 [facility].; [employer] [facility], [facility]. Comprehensive metabolic 2000 panel CMP with eGFR Normal [facility].; [place] [facility], [employer]. GFR/1.73 sq M.predicted among blacks MDRD (S/P/Bld) [Vol rate/Area] mL/min/{1.73_m2} Normal 60 - 999 {ML/MINUTE} [facility], [facility].; [place] [facility], [facility]. GFR/1.73 sq M.predicted MDRD (S/P/Bld) [Vol rate/Area] mL/min/{1.73_m2} Normal 60 - 999 {ML/MINUTE} [place] [facility], [facility].; [employer], [employer]. Prostate specific Ag [Mass/Vol] 0.66 ng/mL Normal 0.00 - 4.00 ng/mL [place] [facility].; [employer], [employer]. Triglyceride [Mass/Vol] 193 mg/dL Abnormal 40 - 150 mg/dL [place] [employer] [facility].; [employer], [employer]. Urea nitrogen/Creatinine [Mass ratio] 12 {ratio} Normal 0 - 30 {ratio} [employer], [employer]. No Panel Informationon 05-17 AGE 79 {years} Normal [place] [facility].; [employer], [employer]. AAA Screeningon 03-22-2024 AAA Screening [facility] [place] [address] AAA Screening 03/22/24906 MR#: [id number] Acct: [id number] Name: NACHO FRAZIER Jr. Rep #: [id number] : 1945 78 From: Delroy Escoto MD Attending Dr: Dr. Jya Vasquez MD Status: RE G CLI Ordering Dr: Jay Vasquez MD Date: 03/22/24 Location: [facility] Sex: M C Admitted: Reason For Study: AAA Screening / Claudication Aorta Measurements Aorta Doppler Measurements Proximal aorta measures2.13 x 2.18cm. in cross- Peak systolic flow velocities within the proximal sectional axis. aorta measure 72.3 cm/sec. Proximal aorta measures2.24cm. in longitudinal Peak systolic flow velocities within the mid aorta axis. measure 124.1 cm/sec. Mid aorta measures1.83 x 1.78cm. in cross- Peak systolic flow velocities within the distal sectional axis. aorta measure 181.2 cm/sec. Mid aorta measures1.79cm. in longitudinal axis. Distal aorta measures1.51 x 1.49cm. in cross- sectional axis. Distal aorta measures1.44cm. in longitudinal axis. Left Iliac Artery Left iliac artery measures 0.92 x 0.96 cm. in the cross-sectional axis. Left iliac artery measures 0.97 cm. in the longitudinal axis. Peak systolic velocity in the left iliac artery measures 187.9 cm/sec. Right Iliac Artery Right iliac artery measures 0.83 x 0.97 cm. in the cross-sectional axis. Right iliac artery measures 1.05 cm. in the longitudinal axis. Peak systolic velocity in the right iliac artery measures 223.2 cm/sec. Procedure Aorta IVC Iliac vasculature or bypass grafts 87192. The exam was diagnostic. Exam performed in department. VL/AAA Screening Interpretation Summary Aorta patent, normal caliber Bilateral iliac arteries patent, normal caliber Ordering Physician: Jay Vasquez Referring Physician: Iesha Peña Performed By: Masood Pulliam, RVT 03/22/241937 Date Delroy Escoto MD CC: Dr. Jay Vasquez MD; Dr. Iesha Peña MD Date Dictated: 03/22/24906 Date Transcribed: 03/22/241937 Large Animal Veterinarian: Signed Normal [facility] Lower Ext Art Exam w/ Exerci azalea 03-22-2024 Lower Ext Art Exam w/ Exercise [facility] [address] [place] [address] Lower Ext Art Exam w/ Exercise 03/22/24905 MR#: [id number] Acct: [id number] Name: NACHO FRAZIER Rep #: [id number] : 1945 78 From: Delroy Escoto MD Attending Dr: Dr. Jay Vasquez MD Status: RE G CLI Ordering Dr: Jay Vasquez MD Date: 03/22/24 Location: [facility] Sex: M C Admitted: Reason For Study: Claudication Procedure A bilateral lower extremity continuous wave Doppler with analog waveform analysis,segmental pressures,and ankle brachial indexes with exercise. Left Segmental Pressures Left brachial= 136mmHg. Left posterior tibial artery = 168mmHg. Left dorsalis pedis artery = 166mmHg. Left digit = 121 mmHg. The left posterior tibial artery waveforms are triphasic. The left dorsalis pedis waveforms are triphasic. Right Segmental Pressures Right brachial= 150mmHg. Right posterior tibial artery = 162mmHg. Right dorsalis pedis artery = 147mmHg. Right digit = 140 mmHg. The right posterior tibial artery waveforms are triphasic. The right dorsalis pedis waveforms are triphasic. Indices The right ankle brachial index by the posterior tibial artery is 1.08. The right ankle brachial index by the dorsalis pedis is 0.98. The right digital-brachial index is 0.93. The right post exercise ankle brachial index is 1.15. The left ankle brachial index by the posterior tibial artery is 1.12. The left ankle brachial index by the dorsalis pedis is 1.11. The left digital-brachial index is 0.81. The left post exercise ankle brachial index is 1.22. VL/Lower Ext Art Exam w/ Exercise Interpretation Summary Right PRISCILLA 1.08, normal. TBI and Doppler/PVR waveforms of the right leg normal at rest. Right lower extremity exhibits normal response to exercise. Left PRISCILLA 1.12, normal. TBI and Doppler/PVR waveforms of the left leg normal at rest. Left lower extremity exhibits normal response to exercise. Ordering Physician: Jay Vasquez Referring Physician: Iesha Peña Performed By: Masood Pulliam, Radha 03/22/241935 Date Delroy Escoto MD CC: Dr. Jay Vasquez MD; Dr. Iesha Peña MD Date Dictated: 03/22/24905 Date Transcribed: 03/22/241935 Large Animal Veterinarian: Signed [facility] Final Surgical Pathology Rep [facility] 02-13-2024 Final Surgical Pathology Report . Pathology Reports Accession: Collected Date/Time: Received Date/Time: Pathologist: [id number] 02/11/2024 16:22 EDT 02/12/2024 08:05 EDT PATY GOLDSTEIN MD Final Surgical Pathology Report DIAGNOSIS: BLADDER DIVERTICULUM, BIOPSY: - DENUDED BLADDER MUCOSA WITH FOCAL UROTHELIAL ATYPIA - SEE COMMENT Comment: The biopsy consists of bladder mucosa which is mostly denuded. Prominent subepithelial fibrosis and focal chronic inflammation present. Focal urothelial atypia is present; the differential diagnosis includes reactive urothelial atypia versus dysplasia/carcinoma in situ. Follow-up and rebiopsy recommended. CLINICAL INFORMATION: Procedure: CYSTOSCOPY, BLADDER BIOPSY, FULGURATION, CYSTOGRAM; EXAM UNDER ANESTHESIA Preoperative diagnosis: BLADDER DIVERTICULUM WITH ERYTHEMA, PROSTATE NODULE Postoperative diagnosis: BLADDER DIVERTICULUM WITH ERYTHEMA, PROSTATE NODULE SPECIMEN: A BLADDER DIVERTICULUM GROSS DESCRIPTION: All parts labelled with patient name and [id number] Received in formalin labeled bladder diverticulum are 2 weeks tissue fragments measuring 0.2 and 0.4 x 0.1 cm. TS-1 Catarina Kahn, Grossing Sewing Demonstrator/ Dr. Isaías Holland, Pathologist Performed by Catarina Kahn MICROSCOPIC DESCRIPTION: The microscopic examination is performed, except in the case of Gross Only. Electronically Signed by Pathology Report verified by [facility] PATY GOLDSTEIN Sign out Date: 02/13/2024 09:55 Performing Lab: [facility], [address] [place] [address] Pathology Dept Disclaimer If ancillary studies were utilized, the following Laboratory Developed Test (LDT) disclaimer will apply: Under CLIA requirements, [facility] is qualified to perform high complexity testing. For all ancillary stains, positive and negative controls stain appropriately. Performance characteristics of immunohistochemical and chromogenic in-situ hybridization tests have been determined by [facility]. These tests are used for clinical purposes, They should not be regarded as investigational or for research. [facility]) XR FLUORO < 1HR TECH TIMEon 02-11-2024 XR FLUORO < 1HR TECH TIME ORIGINAL EXAMINATION: SPOT FLUOROSCOPIC IMAGES02/11/2024 4:31 pm COMPARISON: None. HISTORY: ORDERING SYSTEM PROVIDED HISTORY: Reason for Exam: BLADDER TUMOR FLUOROSCOPY DOSE AND TYPE: Radiation Exposure Index: Kerma mGy, 3 FINDINGS: Intraoperative fluoroscopy utilized for bladder tumor. Images demonstrate opacification of the urinary bladder with voiding. Mild trabeculations are noted. IMPRESSION: Please see procedure note for further detail. Interpreted by: Davi Ibarra DO Preliminary Report By: Davi Ibarra DO Electronically signed By Davi Ibarra DO Dictated Date: 02/11/2024 4:48:28 PM Prelim Date: 02/11/2024 4:49:17 PM Sign Date: 02/11/2024 4:49:17 PM Ordering Provider: BLU ORTA [facility]) .Auto Diffon 01-28-2024 Basophil, Absolute 0.0 10 3/mcL Normal 0.0-0.3 [facility] ([place]) Comment on above: Performed By: #### C BC, GFR, ANEU, ADIFF, PSA, BMP #### [address] [address] Basophils/100 WBC (Bld) 0.5 % Normal 0.0-2.5 [facility] ([place]) Comment on above: Performed By: #### C BC, GFR, ANEU, ADIFF, PSA, BMP #### [address] [address] Eosinophil, Absolute 0.2 10 3/mcL Normal 0.0-0.7 [facility] ([place]) Comment on above: Performed By: #### C BC, GFR, ANEU, ADIFF, PSA, BMP #### [address] [address] Eosinophils/100 WBC (Bld) 3.6 % Normal 0.0-6.0 [facility] ([place]) Comment on above: Performed By: #### C BC, GFR, ANEU, ADIFF, PSA, BMP #### [address] [address] Lymphocyte, Absolute 1.4 10 3/mcL Normal 0.9-4.3 [facility] ([place]) Comment on above: Performed By: #### C BC, GFR, ANEU, ADIFF, PSA, BMP #### [address] [address] Lymphocytes/100 WBC (Bld) 20.7 % Normal 20.0-40.0 [facility] ([place]) Comment on above: Performed By: #### C BC, GFR, ANEU, ADIFF, PSA, BMP #### [address] [address] Monocyte, Absolute 0.6 10 3/mcL Normal 0.1-1.4 [facility] ([place]) Comment on above: Performed By: #### C BC, GFR, ANEU, ADIFF, PSA, BMP #### [address] [address] Monocytes/100 WBC (Bld) 8.7 % Normal 2.0-13.0 [facility] ([place]) Comment on above: Performed By: #### C BC, GFR, ANEU, ADIFF, PSA, BMP #### [address] [address] Neutrophils/100 WBC (Bld) 66.5 % Normal 50.0-75.0 [facility] ([place]) Comment on above: Performed By: #### C BC, GFR, ANEU, ADIFF, PSA, BMP #### [address] [address] .GFRon 01-28-2024 GFR >60 Normal [facility] ([place]) Comment on above: Result Comment: GFR Population mean for , Non- Americans Ages 20-29 = 116 mL/min/1.73 sq.m. Ages 30-39 = 107 mL/min/1.73 sq.m. Ages 40-49 = 99 mL/min/1.73 sq.m. Ages 50-59 = 93 mL/min/1.73 sq.m. Ages 60-69 = 85 mL/min/1.73 sq.m. Ages 70+ = 75 mL/min/1.73 sq.m. Chronic Kidney Disease: Less than 60 mL/min/1.73 square meters End Stage Renal Disease: Less than 15 mL/min/1.73 square meters Performed By: #### C BC, GFR, ANEU, ADIFF, PSA, BMP #### [address] [address] GFR Non- >60 Normal [facility] ([place]) Comment on above: Result Comment: GFR Population mean for , Non- Americans Ages 20-29 = 116 mL/min/1.73 sq.m. Ages 30-39 = 107 mL/min/1.73 sq.m. Ages 40-49 = 99 mL/min/1.73 sq.m. Ages 50-59 = 93 mL/min/1.73 sq.m. Ages 60-69 = 85 mL/min/1.73 sq.m. Ages 70+ = 75 mL/min/1.73 sq.m. Chronic Kidney Disease: Less than 60 mL/min/1.73 square meters End Stage Renal Disease: Less than 15 mL/min/1.73 square meters Performed By: #### C BC, GFR, ANEU, ADIFF, PSA, BMP #### [address] [address] .NEUABSon 01-28-2024 Neutrophil, Absolute 4.4 10 3/mcL Normal 2.3-8.1 [facility] ([place]) Comment on above: Performed By: #### C BC, GFR, ANEU, ADIFF, PSA, BMP #### [address] [address] BUN/Creatinine Ratio 14.1 ratio Normal 10.0-22.0 [facility] ([place]) Comment on above: Performed By: #### C BC, GFR, ANEU, ADIFF, PSA, BMP #### [place] [address] Calcium [Mass/Vol] 9.3 mg/dL Normal 8.7-10.4 [facility] ([place]) Comment on above: Performed By: #### C BC, GFR, ANEU, ADIFF, PSA, BMP #### [place] [address] Chloride [Moles/Vol] 108 mmol/L Normal 98-110 [facility] ([place]) Comment on above: Performed By: #### C BC, GFR, ANEU, ADIFF, PSA, BMP #### [place] [address] CO2 [Moles/Vol] 28 mmol/L Normal 22-32 [facility] ([place]) Comment on above: Performed By: #### C BC, GFR, ANEU, ADIFF, PSA, BMP #### [place] [address] Creatinine [Mass/Vol] 0.85 mg/dL Normal 0.60-1.40 [facility] ([place]) Comment on above: Performed By: #### C BC, GFR, ANEU, ADIFF, PSA, BMP #### [place] [address] Electrolyte Balance 4.0 mEq/L Normal 4.0-15.0 [facility] ([place]) Comment on above: Performed By: #### C BC, GFR, ANEU, ADIFF, PSA, BMP #### [place] [id number] Glucose [Mass/Vol] 100 mg/dL Normal 82-115 [facility] ([place]) Comment on above: Performed By: #### C BC, GFR, ANEU, ADIFF, PSA, BMP #### [place] [id number] Potassium [Moles/Vol] 3.9 mmol/L Normal 3.5-5.0 [facility] ([place]) Comment on above: Performed By: #### C BC, GFR, ANEU, ADIFF, PSA, BMP #### [place] [id number] Sodium [Moles/Vol] 140 mmol/L Normal 136-145 [facility] ([place]) Comment on above: Performed By: #### C BC, GFR, ANEU, ADIFF, PSA, BMP #### [place] [address] Urea nitrogen [Mass/Vol] 12.0 mg/dL Normal 8.0-22.0 [facility] ([place]) Comment on above: Performed By: #### C BC, GFR, ANEU, ADIFF, PSA, BMP #### [address] [address] CBCon 01-28-2024 Erythrocyte distribution width (RBC) [Ratio] 13.6 % Normal 11.5-15.5 [facility] ([place]) Comment on above: Performed By: #### C BC, GFR, ANEU, ADIFF, PSA, BMP #### [place] [id number] Hematocrit (Bld) [Volume fraction] 43.3 % Normal 40.0-52.0 [facility] ([place]) Comment on above: Performed By: #### C BC, GFR, ANEU, ADIFF, PSA, BMP #### [place] [id number] Hgb 15.2 G/dL Normal 13.0-17.5 [facility] ([place]) Comment on above: Performed By: #### C BC, GFR, ANEU, ADIFF, PSA, BMP #### [place] [address] MCH (RBC) [Entitic mass] 30.2 pg Normal 27.0-33.0 [facility] ([place]) Comment on above: Performed By: #### C BC, GFR, ANEU, ADIFF, PSA, BMP #### [place] [address] MCHC 35.0 G/dL Normal 32.0-36.0 [facility] ([place]) Comment on above: Performed By: #### C BC, GFR, ANEU, ADIFF, PSA, BMP #### [place] [address] MCV (RBC) [Entitic vol] 86.5 fL Normal 81.0-100.0 [facility] ([place]) Comment on above: Performed By: #### C BC, GFR, ANEU, ADIFF, PSA, BMP #### [place] [address] Platelet 243 10 3/mcL Normal 150-450 [facility] ([place]) Comment on above: Performed By: #### C BC, GFR, ANEU, ADIFF, PSA, BMP #### [place] [address] Platelet mean volume (Bld) [Entitic vol] 7.0 fL Normal 6.4-10.5 [facility] ([place]) Comment on above: Performed By: #### C BC, GFR, ANEU, ADIFF, PSA, BMP #### [place] [address] RBC 5.01 10 6/mcL Normal 4.50-6.00 [facility] ([place]) Comment on above: Performed By: #### C BC, GFR, ANEU, ADIFF, PSA, BMP #### [place] [address] WBC 6.5 10 3/mcL Normal 4.5-10.8 [facility] ([place]) Comment on above: Performed By: #### C BC, GFR, ANEU, ADIFF, PSA, BMP #### [place] [address] LABORATORYOrdered By: SYSTEM SYSTEM on 01-28-2024 Basophils (Bld) [#/Vol] 0.0 103/mcL Normal 0.0 - 0.3 10^3/mcL AH Workflow SS Basophils/100 WBC (Bld) 0.5 % Normal 0.0 - 2.5 % AH Workflow SS Calcium [Mass/Vol] 9.3 mg/dL Normal 8.7 - 10. 4 mg/dL AH ADM SS Chloride [Moles/Vol] 108 mmol/L Normal 98 - 11 0 mEq/L AH ADM SS CO2 [Moles/Vol] 28 mmol/L Normal 22 - 32 mEq/L AH ADM SS Creatinine [Mass/Vol] 0.85 mg/dL Normal 0.60 - 1.40 mg/dL AH ADM SS Electrolyte Balance 4.0 mEq/L Normal 4.0 - 15 .0 mEq/L AH ADM SS Eosinophils (Bld) [#/Vol] 0.2 103/mcL Normal 0.0 - 0.7 10^3/mcL AH Workflow SS Eosinophils/100 WBC (Bld) 3.6 % Normal 0.0 - 6.0 % AH Workflow SS Erythrocyte distribution width (RBC) [Ratio] 13.6 % Normal 11.5 - 15.5 % AH Workflow SS GFR/1.73 sq M.predicted among blacks MDRD (S/P/Bld) [Vol rate/Area] ml/min/1.73sqm Invalid Interpretation Code Chemistry S Comment on above: Interpretive Data: GFR Population mean for , Non- Americans Ages 20-29 = 116 mL/min/1.73 sq.m. Ages 30-39 = 107 mL/min/1.73 sq.m. Ages 40-49 = 99 mL/min/1.73 sq.m. Ages 50-59 = 93 mL/min/1.73 sq.m. Ages 60-69 = 85 mL/min/1.73 sq.m. Ages 70+ = 75 mL/min/1.73 sq.m. Chronic Kidney Disease: Less than 60 mL/min/1.73 square meters End Stage Renal Disease: Less than 15 mL/min/1.73 square meters GFR/1.73 sq M.predicted among non-blacks MDRD (S/P/Bld) [Vol rate/Area] ml/min/1.73sqm Invalid Interpretation Code Chemistry S Comment on above: Interpretive Data: GFR Population mean for , Non- Americans Ages 20-29 = 116 mL/min/1.73 sq.m. Ages 30-39 = 107 mL/min/1.73 sq.m. Ages 40-49 = 99 mL/min/1.73 sq.m. Ages 50-59 = 93 mL/min/1.73 sq.m. Ages 60-69 = 85 mL/min/1.73 sq.m. Ages 70+ = 75 mL/min/1.73 sq.m. Chronic Kidney Disease: Less than 60 mL/min/1.73 square meters End Stage Renal Disease: Less than 15 mL/min/1.73 square meters Glucose [Mass/Vol] 100 mg/dL Normal 82 - 115 mg/dL ADM SS Hematocrit (Bld) [Volume fraction] 43.3 % Normal 40.0 - 52.0 % Workflow SS Hemoglobin (Bld) [Mass/Vol] 15.2 G/dL Normal 13.0 - 17.5 G/dL Workflow SS Lymphocytes (Bld) [#/Vol] 1.4 103/mcL Normal 0.9 - 4.3 10^3/mcL AH Workflow SS Lymphocytes/100 WBC (Bld) 20.7 % Normal 20.0 - 40.0 % AH Workflow SS MCH (RBC) [Entitic mass] 30.2 pg Normal 27.0 - 33.0 pg AH Workflow SS MCHC 35.0 G/dL Normal 32.0 - 36.0 G/dL Workflow SS MCV (RBC) [Entitic vol] 86.5 fL Normal 81.0 - 100.0 fL AH Workflow SS Monocytes (Bld) [#/Vol] 0.6 103/mcL Normal 0.1 - 1.4 10^3/mcL AH Workflow SS Monocytes/100 WBC (Bld) 8.7 % Normal 2.0 - 13.0 % AH Workflow SS Neutrophils (Bld) [#/Vol] 4.4 103/mcL Normal 2.3 - 8.1 10^3/mcL AH Workflow SS Neutrophils/100 WBC (Bld) 66.5 % Normal 50.0 - 75.0 % Workflow SS Platelet mean volume (Bld) [Entitic vol] 7.0 fL Normal 6.4 - 10.5 fL Workflow SS Platelets (Bld) [#/Vol] 243 103/mcL Normal 150 - 450 10^3/mcL Workflow SS Potassium [Moles/Vol] 3.9 mmol/L Normal 3.5 - 5.0 mEq/L ADM SS Prostate specific Ag [Mass/Vol] 0.43 ng/mL Normal 0.02 - 4.00 ng/mL ADM SS Comment on above: Interpretive Data: P atient results determined by assays using different manufacturers for methods may not be comparable. RBC (Bld) [#/Vol] 5.01 106/mcL Normal 4.50 - 6.0 0 10^6/mcL Workflow SS Sodium [Moles/Vol] 140 mmol/L Normal 136 - 145 mEq/L ADM SS Urea nitrogen [Mass/Vol] 12.0 mg/dL Normal 8.0 - 22.0 mg/dL ADM SS Urea nitrogen/Creatinine [Mass ratio] 14.1 ratio Normal 10.0 - 22.0 ratio ADM SS WBC (Bld) [#/Vol] 6.5 103/mcL Normal 4.5 - 10.8 10^3/mcL Workflow SS PSAon 01-28-2024 Prostate Specific Antigen 0.43 ng/mL Normal 0.02-4.00 [facility] ([place]) Comment on above: Result Comment: Barbara ent results determined by assays using different manufacturers for methods may not be comparable. Performed By: #### C BC, GFR, ANEU, ADIFF, PSA, BMP #### [address] [address] UAon 11-25-2023 Color (U) Yellow Normal [facility] ([place]) Comment on above: Performed By: #### U AMIC, UA #### [address] [address] Glucose (U) [Mass/Vol] Negative Normal Negative [facility] ([place]) Comment on above: Performed By: #### U AMIC, UA #### [address] [address] Ketones Ql (U) Negative Normal Neg-Trace [facility] ([place]) Comment on above: Performed By: #### U AMIC, UA #### [place] [address] UA Appear Clear Normal Clear [facility] ([place]) Comment on above: Performed By: #### U AMIC, UA #### [place] [address] UA Blood Trace Normal Neg-Trace [facility] ([place]) Comment on above: Performed By: #### U AMIC, UA #### [place] [address] UA Leuk Est Negative Normal Negative [facility] ([place]) Comment on above: Performed By: #### U AMIC, UA #### [place] [address] UA Nitrite Negative Normal Negative [facility] ([place]) Comment on above: Performed By: #### U AMIC, UA #### [place] [address] UA pH 7.0 Normal 5.0 - 8.0 [facility] ([place]) Comment on above: Performed By: #### U AMIC, UA #### [place] [address] UA Protein Negative Normal Negative [facility] ([place]) Comment on above: Performed By: #### U AMIC, UA #### [place] [address] UA Spec Grav <=1.005 Abnormal 1.006-1.029 [facility] ([place]) Comment on above: Performed By: #### U AMIC, UA #### [place] [address] UA Specimen Type Clean Catch Normal [facility] ([place]) Comment on above: Performed By: #### U AMIC, UA #### [place] [address] UA Urobilinogen 0.2 E.U./dL Normal 0.2-1.0 [facility] ([place]) Comment on above: Performed By: #### U AMIC, UA #### [facility] [address] [place] [address] Urobilinogen (U) [Mass/Vol] Negative Normal Neg-Trace [facility] ([place]) Comment on above: Performed By: #### U AMIC, UA #### [facility] [address] [place] [address] UAMICon 11-25-2023 UA RBC 0-2 Normal 0-2 [facility] ([place]) Comment on above: Performed By: #### U AMIC, UA #### [facility] [address] [place] [address] UA Squam Epithelial Negative Normal 0-20 [facility] ([place]) Comment on above: Performed By: #### U AMIC, UA #### [facility] [address] [place] [address] UA WBC Negative Normal 0-5 [facility] ([place]) Comment on above: Performed By: #### U AMIC, UA #### [address] [address] US SCROTUM CONTENTSon 2023 US SCROTUM CONTENTS ORIGINAL EXAMINATION: ULTRASOUND OF THE SCROTUM/TESTICLES WITH COLOR DOPPLER FLOW EVALUATION11/06/2023 3:22 pm Scrotal Ultrasound with Duplex Doppler evaluation TECHNIQUE: Duplex ultrasound using B-mode/castro scaled imaging, Doppler spectral analysis and color flow Doppler was obtained of the testicles. Grayscale, color Doppler and spectral waveform evaluation COMPARISON: None HISTORY: ORDERING SYSTEM PROVIDED HISTORY: Reason for Exam: right scrotal lump, FINDINGS: Right testicle: 4.1 x 3.0 x 2.1 cm Left testicle: 3.6 x 3.0 x 2.4 cm No suspicious focal nor diffuse abnormalities are seen. Color Doppler flow is seen in both testicles in a symmetric fashion. Spectral waveform analysis of the testicles shows arterial and venous waveforms in both testicles. The right-sided palpable lump is from a spermatocele that is 2.2 cm with some thin septations. No other mass or abnormality is seen in the epididymis on either side. There is a small left hydrocele and minimal peritesticular fluid on the right also. No obvious varicocele. IMPRESSION: No testicular mass. There is a small right-sided spermatocele corresponding to the palpable lump. Interpreted by: Lino Gore MD Preliminary Report By: Lino Gore MD Electronically signed By Lino Gore MD Dictated Date: 11/06/2023 6:41:20 PM Prelim Date: 11/06/2023 6:43:27 PM Sign Date: 11/06/2023 6:43:27 PM Ordering Provider: AUBREY Koch [facility] ([place]) CT KUB (KIDNEY STONE PROTOCO L)on 09-24-2023 CT KUB (KIDNEY STONE PROTOCOL) [place] [address] Patient: NACHO FRAZIER JR Phone#: : [phone] Age: 78 Gender: M Pt. Type: Out Account: [id number] Location: [facility] Ordering: YFN CARPIO Exam Date: 09/24/2023/13:07 Family Phys: Charge Code: [id number] Physician: [place] Order #: [id number] Dose#: [id number] PROCEDURE: CT ABDOMEN AND PELVIS WITHOUT CONTRAST COMPARISON: None. INDICATIONS: Hematuria. TECHNIQUE: After obtaining the patient's consent, CT images of the abdomen and pelvis were created without non-ionic intravenous contrast material. All CT scans at this facility use dose modulation, iterative reconstruction, and/or weight based dosing when appropriate to reduce radiation dose to as low as reasonably achievable. IV CONTRAST: No IV contrast used,0ml TOTAL DOSE: 12.10 CTDIvol(mGy) FINDINGS: Is KIDNEYS: Normal. No mass, obstruction, or calcification. ADRENALS: Normal. No mass or enlargement. URINARY BLADDER: A 2.6 centimeter diverticulum is present at the lateral left bladder. LIVER: Normal. No enlargement, atrophy, abnormal density, or significant focal lesion. BILIARY: Normal. No visible dilatation or calcification. PANCREAS: Normal. No lesion, fluid collection, ductal dilatation, or atrophy. SPLEEN: Normal. No enlargement or focal lesion. AORTA/VASCULAR: Calcification is present. No aneurysm. RETROPERITONEUM: Normal. No mass or adenopathy. BOWEL/MESENTERY: There is moderate stool retention. Sigmoid colon diverticula are present without inflammatory change. ABDOMINAL WALL: Normal. No mass or hernia. PELVIC NODES: Normal. No adenopathy. PELVIC ORGANS: Normal. No visible mass. Pelvic organs appropriate for patient age. BONES: Degenerative changes of the spine are present. LUNG BASES: Normal. No visible pulmonary or pleural disease. OTHER: Negative. CONCLUSION: Continued Report - Page 2 of 2 Patient: NACHO FRAZIER JR Phone#: : [phone] Age: 78 Gender: M Pt. Type: Out Account: [id number] Location: [facility] Ordering: YFN CARPIO Exam Date: 09/24/2023/13:07 Family Phys: Charge Code: [id number] Physician: [place] Order #: [id number] Dose#: [id number] 1. Moderate stool retention is present throughout the colon. Diverticulosis. 2. 2.6 centimeter bladder diverticulum. Dictated by: Olya Live MD on 09/24/2023 at 17:35 Approved by: Lashay Weaver MD on 09/24/2023 at 18:42 Normal [facility] CULTURE, URINE, ROUTINEon CULTURE, URINE, ROUTINE SEE NOTE Normal [facility] Comment on above: Result Comment: CULTURE, URINE, ROUTINE Micro Number: [id number] Test Status: Final Specimen Source: Urine Specimen Quality: Adequate Result: No Growth Performed By: #### 3 95 #### [facility] [address], [address] [place] [id number] Dogman/Woman: Hilton Chavez MD Laboratory - Chemistry and C hemistry - challengeon 09-18-2023 Bilirubin Ql (U) Negative Normal [facility]He[place] [employer], [employer].; algrano, [employer]. Ketones Ql (U) Negative Normal [facility] CampusHeilong[facility] [employer], [employer].; [employer], [employer]. pH (U) 5.5 [pH] Normal [employer], [employer].; [employer], [employer]. Specific gravity (U) [Rel density] 1.020 Normal algrano, [employer].; algrano, [employer]. Urobilinogen Qn (U) 0.2 mg/dL Normal [facility], [facility].; [place] [facility] Laboratory - Hematology and Cell countson 09-18-2023 Hemoglobin Ql (U) small Abnormal [facility]; [place] [facility] HospitalYour Office Agent Laboratory - Specimen inform ationon 09-18-2023 Appearance (U) Cloudy Abnormal [facility] HospitalYour Office Agent.; [employer] Color (U) Yellow Normal [facility].; [place] [employer] Laboratory - Urinalysison Glucose Test strip (U) [Mass/Vol] Negative Normal [facility].; [employer]. Leukocyte esterase Test strip Ql (U) Negative Normal [facility].; [employer]. Nitrite Ql (U) Negative Normal [facility] HospitalYour Office Agent.; [employer], [employer]. Protein Ql (U) Negative Normal [facility] HospitalYour Office Agent.; [employer]. No Panel Informationon 09-17 CULTURE, URINE, ROUTINE SEE NOTE Normal [facility] HospitalYour Office [facility].; [employer]. Laboratory - Chemistry and C hemistry - challengeon 05-06-2023 Albumin [Mass/Vol] 4.1 g/dL Normal 3.6 - 5.1 g/dL [facility]; [place] [employer], [employer]. Albumin/Globulin [Mass ratio] 1.6 {ratio} Normal 1.0 - 2.5 [facility]; [place] [employer] ALP [Catalytic activity/Vol] 115 U/L Normal 35 - 144 U/L [facility].; [place] [employer]. ALT [Catalytic activity/Vol] 17 U/L Normal 9 - 46 U/L [facility].; [place] [employer]. AST [Catalytic activity/Vol] 13 U/L Normal 10 - 35 U/L [facility].; [place] [employer], [employer]. Bilirubin [Mass/Vol] 0.5 mg/dL Normal 0.2 - 1 .2 mg/dL [facility]; [place] [employer] Calcium [Mass/Vol] 9.3 mg/dL Normal 8.6 - 10. 3 mg/dL [facility], [facility].; [place] [facility], Inc. Chloride [Moles/Vol] 104 mmol/L Normal 98 - 11 0 mmol/L [facility].; [place] [facility], [facility]. Cholesterol [Mass/Vol] 239 mg/dL Abnormal [facility], [facility].; [place] [employer], [employer] Cholesterol in HDL [Mass/Vol] 44 mg/dL Normal [facility].; [place] [facility], [facility]. Cholesterol in LDL [Mass/Vol] 165 mg/dL Abnormal [facility].; [place] [employer] CO2 [Moles/Vol] 26 mmol/L Normal 20 - 32 mmol/L [facility], [facility].; [place] [employer], [employer]. Creatinine [Mass/Vol] 0.91 mg/dL Normal 0.70 - 1.28 mg/dL [facility], [facility].; [place] [employer], [employer]. GFR/1.73 sq M.predicted among non-blacks MDRD (S/P/Bld) [Vol rate/Area] 87 mL/min/{1.73_m2} Normal [facility], [facility].; [place] [facility], Inc. Glucose [Mass/Vol] 95 mg/dL Normal 65 - 99 mg/dL [facility], [facility].; [place] [employer], [employer] Potassium [Moles/Vol] 4.3 mmol/L Normal 3.5 - 5.3 mmol/L [facility], [facility].; [place] [employer], [employer]. Protein [Mass/Vol] 6.6 g/dL Normal 6.1 - 8.1 g/dL [place] [facility], [facility].; [employer] Sodium [Moles/Vol] 139 mmol/L Normal 135 - 146 mmol/L [facility], [facility].; [employer], [employer]. Triglyceride [Mass/Vol] 154 mg/dL Abnormal [place] [employer] [facility].; [place] [employer], [employer] Urea nitrogen [Mass/Vol] 15 mg/dL Normal 7 - 25 mg/dL [facility], [facility].; [place] [employer], [employer]. No Panel Informationon 05-06 BUN/CREATININE RATIO SEE NOTE: Normal 6 - [address] [facility] [facility] HospitalFl[facility].; [place] [facility], [facility]. CHOL/HDLC RATIO 5.4 Abnormal [facility]. GLOBULIN 2.5 Normal 1.9 - 3.7 [facility]; [place] [facility] HospitalFl[facility]. NON HDL CHOLESTEROL 195 Abnormal [facility].; [place] [facility] HospitalYour Office Agent. Laboratory - Chemistry and C hemistry - challengeon 2022 Bilirubin Ql (U) Negative Normal [facility].; [place] [employer]. Ketones Ql (U) Negative Normal [facility] HospitalFl[facility].; [place] [employer]. pH (U) 6.0 [pH] Normal [facility].; [place] [facility] HospitalYour Office Agent Specific gravity (U) [Rel density] 1.020 Normal [facility] HospitalFl[facility].; [employer] Urobilinogen Qn (U) 0.2 mg/dL Normal [facility].; [place] [employer]. Laboratory - Hematology and Cell countson 2022 Hemoglobin Ql (U) small Abnormal [facility].; [employer]. Laboratory - Specimen inform ationon 2022 Appearance (U) clear Normal [facility] HospitalFl[facility]; [place] [employer]. Color (U) yellow Normal [facility].; [employer]. Laboratory - Urinalysison Glucose Test strip (U) [Mass/Vol] Negative Normal [facility] HospitalFl[facility].; [place] [employer]. Leukocyte esterase Test strip Ql (U) Negative Normal [facility] Hospital[facility].; [employer]. Nitrite Ql (U) Negative Normal [facility] HospitalFl[facility].; [employer]. Protein Ql (U) Negative Normal [facility] HospitalFl[facility].; [employer]. No Panel Informationon 04-30 CULTURE, URINE, ROUTINE SEE NOTE Normal [facility].; [employer] Laboratory - Chemistry and C hemistry - challengeon 04-17-2022 Albumin [Mass/Vol] 4.2 g/dL Normal 3.6 - 5.1 g/dL [facility].; [facility], [facility]. Albumin/Globulin [Mass ratio] 1.7 {ratio} Normal 1.0 - 2.5 [facility] HospitalFl[facility].; [facility], [facility]. ALP [Catalytic activity/Vol] 108 U/L Normal 35 - 144 U/L [facility], [facility].; [facility], [facility]. ALT [Catalytic activity/Vol] 19 U/L Normal 9 - 46 U/L [facility].; [facility], [facility]. AST [Catalytic activity/Vol] 15 U/L Normal 10 - 35 U/L [facility].; [place] [facility], [employer]. Bilirubin [Mass/Vol] 0.5 mg/dL Normal 0.2 - 1 .2 mg/dL [facility].; [place] [facility], [facility]. Calcium [Mass/Vol] 9.7 mg/dL Normal 8.6 - 10. 3 mg/dL [facility].; [place] [employer]. Chloride [Moles/Vol] 104 mmol/L Normal 98 - 11 0 mmol/L [facility].; [place] [employer]. Cholesterol [Mass/Vol] 237 mg/dL Abnormal [facility] HospitalFl[facility].; [place] [employer]. Cholesterol in HDL [Mass/Vol] 37 mg/dL Abnormal [facility] HospitalFl[facility].; [place] [employer], [employer]. Cholesterol in LDL [Mass/Vol] 161 mg/dL Abnormal [facility] HospitalFl[facility].; [place] [facility] HospitalFl[facility]. CO2 [Moles/Vol] 27 mmol/L Normal 20 - 32 mmol/L [facility] HospitalFl[facility].; [place] [employer]. Creatinine [Mass/Vol] 0.94 mg/dL Normal 0.70 - 1.28 mg/dL [facility].; [place] [facility], [employer]. GFR/1.73 sq M.predicted among non-blacks MDRD (S/P/Bld) [Vol rate/Area] 85 mL/min/{1.73_m2} Normal [facility], [facility].; [place] [employer], [employer]. Glucose [Mass/Vol] 97 mg/dL Normal 65 - 99 mg/dL [facility] HospitalYour Office Agent.; [employer]. Potassium [Moles/Vol] 4.5 mmol/L Normal 3.5 - 5.3 mmol/L [facility]; [employer] Protein [Mass/Vol] 6.7 g/dL Normal 6.1 - 8.1 g/dL [facility]; [employer] Sodium [Moles/Vol] 140 mmol/L Normal 135 - 146 mmol/L [facility]; [employer]. Triglyceride [Mass/Vol] 216 mg/dL Abnormal [facility] [place] [employer] [facility]; [employer] Urea nitrogen [Mass/Vol] 15 mg/dL Normal 7 - 25 mg/dL [place] [employer] [facility]; [employer]. No Panel Informationon 04-17 BUN/CREATININE RATIO NOT APPLICABLE Normal 6 - [facility] [place] [employer] [facility]; [employer]. CHOL/HDLC RATIO 6.4 Abnormal [facility]; [employer]. GLOBULIN 2.5 Normal 1.9 - 3.7 [facility] [place] [employer] [facility].; [employer]. NON HDL CHOLESTEROL 200 Abnormal [facility] [place] [employer] [facility]; [employer]. PSA, TOTAL 0.56 ng/mL Normal [place] [employer] [facility].; [employer]. Laboratory - Cytologyon Pathologist Cyto stain Nom (Cvx/Vag) [ID] SEE NOTE Normal [place] [employer].; [employer]. No Panel Informationon 01-30 A DIAGNOSIS SEE NOTE Normal [place] [employer].; [employer]. A GROSS DESCRIPTION SEE NOTE Normal [facility] [employer].; [employer]. A MICRO DESCRIPTION SEE NOTE Normal [facility] [employer].; [employer]. A SOURCE SEE NOTE Normal [place] [employer].; [employer]. CLINICAL INFORMATION SEE NOTE Normal [facility] [employer].; [employer]. Laboratory - Chemistry and C hemistry - challengeon 05-26-2019 Albumin [Mass/Vol] 4.2 g/dL Normal 3.6 - 5.1 g/dL [facility].; [facility]. Albumin/Globulin [Mass ratio] 1.7 {ratio} Normal 1.0 - 2.5 [facility].; [facility], [facility]. ALP [Catalytic activity/Vol] 122 U/L Abnormal 40 - 115 U/L [facility].; [facility], [facility]. ALT [Catalytic activity/Vol] 18 U/L Normal 9 - 46 U/L [facility].; [facility], [facility]. AST [Catalytic activity/Vol] 15 U/L Normal 10 - 35 U/L [facility].; [facility], [facility]. Bilirubin [Mass/Vol] 0.5 mg/dL Normal 0.2 - 1 .2 mg/dL [facility].; [facility], [facility]. Calcium [Mass/Vol] 9.3 mg/dL Normal 8.6 - 10. 3 mg/dL [facility].; [facility]. Chloride [Moles/Vol] 104 mmol/L Normal 98 - 11 0 mmol/L [facility].; [facility], [facility]. Cholesterol [Mass/Vol] 145 mg/dL Normal [facility].; [facility], [facility]. Cholesterol in HDL [Mass/Vol] 34 mg/dL Abnormal [facility].; [facility], [facility]. Cholesterol in LDL [Mass/Vol] 90 mg/dL Normal 0 - 100 mg/dL [facility].; [facility], [facility]. Cholesterol non HDL [Mass/Vol] 111 mg/dL Normal [facility].; [facility], [facility]. Cholesterol.total/Ch olesterol in HDL [Mass ratio] 4.3 {ratio} Normal [facility].; [facility]. CO2 [Moles/Vol] 26 mmol/L Normal 20 - 32 mmol/L [facility].; [place] [facility], [facility]. Creatinine [Mass/Vol] 0.89 mg/dL Normal 0.70 - 1.18 mg/dL [facility].; [facility], [facility]. GFR/1.73 sq M.predicted among blacks MDRD (S/P/Bld) [Vol rate/Area] 99 {ML/MIN/1.73M2} Normal [facility], [facility].; [facility], [facility]. GFR/1.73 sq M.predicted MDRD (S/P/Bld) [Vol rate/Area] 85 {ML/MIN/1.73M2} Normal [facility], [facility].; [facility], [facility]. Globulin (S) [Mass/Vol] 2.4 g/dL Normal 1.9 - 3.7 g/dL [facility].; [facility], [facility]. Glucose [Mass/Vol] 109 mg/dL Abnormal 65 - 99 mg/dL [facility].; [facility], [facility]. Potassium [Moles/Vol] 4.3 mmol/L Normal 3.5 - 5.3 mmol/L [facility].; [place] [facility], [facility]. Prostate specific Ag [Mass/Vol] 0.6 ng/mL Normal [facility].; [facility], [facility]. Protein [Mass/Vol] 6.6 g/dL Normal 6.1 - 8.1 g/dL [facility]Fl[facility].; [place] [facility], [facility]. Sodium [Moles/Vol] 138 mmol/L Normal 135 - 146 mmol/L [facility].; [place] [facility], [employer]. Triglyceride [Mass/Vol] 112 mg/dL Normal [facility], [facility].; [place] [employer], [facility]. Urea nitrogen [Mass/Vol] 14 mg/dL Normal 7 - 25 mg/dL [facility].; [place] [employer], [facility]. Urea nitrogen/Creatinine [Mass ratio] 16.0 mg/mg Normal 6 - 22 [facility].; [place] [employer], [employer]. Laboratory - Chemistry and C hemistry - challengeon 10-10-2017 Bilirubin Ql (U) Negative Normal [facility].; [place] [employer] Ketones Ql (U) Negative Normal [facility], [facility].; [place] [employer], [employer]. pH (U) 5.5 [pH] Normal [facility].; [place] [employer], [employer]. Specific gravity (U) [Rel density] <=1.005 Normal [place] [employer].; [employer]. Urobilinogen Qn (U) 0.2 mg/dL Normal [facility] [employer].; [employer]. Laboratory - Hematology and Cell countson 10-10-2017 Hemoglobin Ql (U) large Abnormal [place] [employer].; [employer]. Laboratory - Specimen inform ationon 10-10-2017 Appearance (U) clear Normal [place] [employer].; [employer]. Color (U) yellow Normal [place] [employer].; [employer]. Laboratory - Urinalysison Glucose Test strip (U) [Mass/Vol] Negative Normal [employer].; [employer]. Leukocyte esterase Test strip Ql (U) Negative Normal [place] [employer].; [employer]. Nitrite Ql (U) Negative Normal [facility] Center[facility].; [employer]. Protein Ql (U) Negative Normal [facility] Center[facility].; [employer]. Laboratory - Chemistry and C hemistry - challengeon 08-11-2017 Bilirubin Ql (U) Negative Normal [facility].; [employer]. Ketones Ql (U) Negative Normal [facility] Center[facility].; algrano, [employer]. pH (U) 6.0 [pH] Normal [employer]. Prostate specific Ag [Mass/Vol] 1.5 ng/mL Normal [employer].; [employer], [employer]. Specific gravity (U) [Rel density] 1.020 Normal [employer].; [employer], [employer]. Urobilinogen Qn (U) 0.2 mg/dL Normal [facility] [employer].; [employer]. Laboratory - Hematology and Cell countson 08-11-2017 Hemoglobin Ql (U) small Abnormal [employer]. Laboratory - Specimen inform ationon 08-11-2017 Appearance (U) clear Normal [place] [facility] [employer].; [employer]. Color (U) yellow Normal [facility].; [place] [employer] Laboratory - Urinalysison Glucose Test strip (U) [Mass/Vol] Negative Normal [facility].; [place] [employer], [employer]. Leukocyte esterase Test strip Ql (U) Negative Normal [facility].; [place] [employer], [employer]. Nitrite Ql (U) Negative Normal [facility] HospitalYour Office Agent.; [place] [employer]. Protein Ql (U) 30 mg/dL Abnormal [facility] HospitalYour Office Agent.; [place] [employer]. Laboratory - Chemistry and C hemistry - challengeon 09-13-2011 Albumin [Mass/Vol] 4.1 g/dL Normal 3.5 - 5.0 g/dL [facility].; [place] [employer], [employer]. Albumin/Globulin [Mass ratio] 1.7 {ratio} Abnormal [facility].; [place] [employer]. ALP [Catalytic activity/Vol] 83 U/L Normal 50 - 136 U/L [facility].; [employer], [employer]. ALT [Catalytic activity/Vol] 25 mmol/L Normal 12 - 49 mmol/L [facility].; [place] [employer], [employer]. AST [Catalytic activity/Vol] 21 U/L Normal 15 - 37 U/L [facility].; [employer], [employer]. Bilirubin [Mass/Vol] 0.4 mg/dL Normal 0.3 - 1 .0 mg/dL [facility].; [place] [employer], [employer]. Calcium [Mass/Vol] 9.0 mg/dL Normal 8.4 - 10. 6 mg/dL [place] [facility] [employer] [facility] HospitalFl[facility].; [employer], [employer]. Chloride [Moles/Vol] 107 mmol/L Normal 98 - 11 0 mmol/L [facility].; [place] [employer], [employer]. Cholesterol [Mass/Vol] 208 mg/dL Abnormal 0 - 200 mg/dL [facility].; [place] [employer], [employer]. Cholesterol in HDL [Mass/Vol] 37 mg/dL Abnormal 40 - 60 mg/dL [facility] [employer].; [employer], [employer]. Cholesterol in LDL [Mass/Vol] 138 mg/dL Abnormal 50.0 - 130.0 mg/dL [facility].; [facility]. Cholesterol in VLDL [Mass/Vol] - Normal [facility].; [facility], [facility]. Cholesterol.total/Ch olesterol in HDL [Mass ratio] 5.6 {ratio} Abnormal 0 - 5.0 [facility].; [facility], [facility]. CK [Catalytic activity/Vol] 134 mU/mL Normal 25.0 - 145.0 mU/mL [facility].; [facility], [facility]. CO2 [Moles/Vol] 32.0 {ramon/L} Normal 22.0 - 32.0 {ramon/L} [facility].; [facility], [facility]. Creatinine [Mass/Vol] 0.8 mg/dL Normal 0.6 - 1.4 mg/dL [facility].; [facility], [facility]. Globulin (S) [Mass/Vol] 2.4 g/dL Normal 1.5 - 3.8 g/dL [facility].; [facility], [facility]. Glucose [Mass/Vol] 98 mg/dL Normal 75 - 105 mg/dL [facility].; [facility], [facility]. Potassium [Moles/Vol] 4.1 mmol/L Normal 3.50 - 5.00 meq/L [facility].; [facility], [facility]. Protein [Mass/Vol] 6.5 g/dL Normal 6.4 - 8.2 g/dL [facility].; [facility], [facility]. Sodium [Moles/Vol] 141 mmol/L Normal 136 - 145 mmol/L [facility], [facility].; [facility], [facility]. Triglyceride [Mass/Vol] 166 mg/dL Abnormal 40 - 150 mg/dL [facility].; [facility], [facility]. Urea nitrogen [Mass/Vol] 15 mg/dL Normal 7.0 - 20.0 mg/dL [facility], [facility].; [facility], [facility]. Urea nitrogen/Creatinine [Mass ratio] 19 mg/mg Normal 0 - 30 [facility].; [facility], [facility] Hospital. No Panel Informationon 09-12 GFR 97 Normal [facility].; [employer]. GFR2 - Normal [facility].; [employer], [employer]. Vital Signs Date Time Vital Sign Value Performing Clinician Facility 02-02-2025 13:52-0400 Body height 167.[address] Iesha Peña MD Work Phone: 1([phone] [place] [address] 02-02-2025 13:52-0400 Body mass index (BMI) [Ratio] 29.9 kg/m2 Dr. Iesha Peña MD Work Phone: [phone] [address] 02-02-2025 13:52-0400 Body weight 84.[address] Iesha Peña MD Work Phone: 4(862)[phone] [place] [address] 02-02-2025 13:52-0400 Diastolic blood pressure 66 mm[Hg] Dr. Iesha Peña MD Work Phone: 1(960)[phone] [address] 02-02-2025 13:52-0400 Heart rate 64 /min Dr. Iesha Peña MD Work Phone: 6(720)[phone] [address] 02-02-2025 13:52-0400 Respiratory rate 18 /min Dr. Iesha Peña MD Work Phone: 8(954)[phone] [address] 02-02-2025 13:52-0400 SaO2% (BldA) [Mass fraction] 94 % Dr. Iesha Peña MD Work Phone: 4(732)[phone] [place] [address] 02-02-2025 13:52-0400 Systolic blood pressure 118 mm[Hg] Dr. Iesha Peña MD Work Phone: 2([phone] [place] [address] 11-29-2024 15:55-0400 Body height 165.1 cm Soumya Garces LPN [facility] [employer] [facility], [facility]. 11-29-2024 15:55-0400 Body mass index (BMI) [Ratio] 31.12 kg/m2 Soumya Garces LPN [employer] [facility].; [employer] 11-29-2024 15:55-0400 Body surface area Derived from formula 1.92 m2 Soumya Garces LPN [facility], [facility].; [employer] [facility], [employer]. 11-29-2024 15:55-0400 Body temperature 98.3 [degF] Soumya Garciaalexander [employer] [facility], [facility].; [employer]. Comment on above: Method: Tympanic 11-29-2024 15:55-0400 Body weight 84.82 kg Soumya Garcia Mili [employer] [facility], [facility].; [employer]. 11-29-2024 15:55-0400 Diastolic blood pressure 87 mm[Hg] Soumya Garcia Mili [employer] [facility].; [employer]. Comment on above: Patient Position: Sitting; Cuff Location : Left Arm; Cuff Size: Standard 11-29-2024 15:55-0400 Heart rate 97 /min Soumya Garcia Mili [employer] [facility], [employer].; [employer]. Comment on above: Pattern: Regular 11-29-2024 15:55-0400 Inhaled oxygen concentration 21 % Soumya Garcia Mili [facility], [employer].; [employer]. Comment on above: Room air 11-29-2024 15:55-0400 SaO2% (BldA) [Mass fraction] 96 % Soumya Langleylabach [facility], [employer].; [employer]. 11-29-2024 15:55-0400 Systolic blood pressure 129 mm[Hg] Soumya Garcai Mili [employer] [facility].; [employer]. Comment on above: Patient Position: Sitting; Cuff Location : Left Arm; Cuff Size: Standard 07-26-2024 09:07-0500 Diastolic blood pressure 81 mm[Hg] Nena Lake LPN [place] [employer] [facility] HospitalYour Office [facility].; [employer]. Comment on above: Patient Position: Sitting; Cuff Location : Left Arm; Cuff Size: Standard 07-26-2024 09:07-0500 Heart rate 90 /min Nena Lake LPN [place] [employer] [facility] HospitalYour Office [facility].; [employer]. Comment on above: Pattern: Regular 07-26-2024 09:07-0500 Systolic blood pressure 124 mm[Hg] Nena Lake LPN [facility] [employer].; [employer]. Comment on above: Patient Position: Sitting; Cuff Location : Left Arm; Cuff Size: Standard 05-10-2024 16:55-0500 Diastolic blood pressure 70 mm[Hg] Luke E Shirin PA-C Work Phone: [place] [employer]. Comment on above: Patient Position: Sitting; Cuff Location : Left Arm; Cuff Size: Standard 05-10-2024 16:55-0500 Systolic blood pressure 140 mm[Hg] Luke E Shirin PA-C Work Phone: [employer] Comment on above: Patient Position: Sitting; Cuff Location : Left Arm; Cuff Size: Standard 05-10-2024 15:47-0500 Body height 165.1 cm Luke E Shirin PA-C Work Phone: [employer] 05-10-2024 15:47-0500 Body mass index (BMI) [Ratio] 31.45 kg/m2 Luke E Shirin PA-C Work Phone: [employer] 05-10-2024 15:47-0500 Body surface area Derived from formula 1.93 m2 Luke E Shirin PA-C Work Phone: [employer].; [employer] 05-10-2024 15:47-0500 Body weight 85.73 kg Luke E Shirin PA-C Work Phone: [employer].; [employer] 05-10-2024 15:47-0500 Diastolic blood pressure 65 mm[Hg] Luke E Shirin PA-C Work Phone: [employer].; [employer]. Comment on above: Patient Position: Sitting; Cuff Location : Left Arm; Cuff Size: Standard 05-10-2024 15:47-0500 Heart rate 54 /min Yfn Carpio PA-C Work Phone: [facility]Your Office [facility].; [facility]Your Office [facility]. Comment on above: Pattern: Regular 05-10-2024 15:47-0500 Systolic blood pressure 155 mm[Hg] Yfn Riveroler PA-C Work Phone: [facility]Your Office [facility].; [facility] CenterYour Office Agent. Comment on above: Patient Position: Sitting; Cuff Location : Left Arm; Cuff Size: Standard 02-11-2024 17:29-0400 Body temperature 96.62 [degF] DR BLU ORTA MD [facility] 02-11-2024 17:29-0400 Diastolic Blood Pressure Non-Invasive 84 mm[Hg] DR BLU ORTA MD [facility] 02-11-2024 17:29-0400 Heart rate 77 /min DR BLU ORTA MD [facility] 02-11-2024 17:29-0400 Respiratory rate 16 /min DR BLU ORTA MD [facility] 02-11-2024 17:29-0400 Systolic Blood Pressure Non-Invasive 148 mm[Hg] DR BLU ORTA MD [facility] 02-11-2024 17:05-0400 Body temperature 96.8 [degF] DR BLU ORTA MD [facility] 02-11-2024 17:05-0400 Diastolic Blood Pressure Non-Invasive 85 mm[Hg] DR BLU ORTA MD [facility] 02-11-2024 17:05-0400 Heart rate 77 /min DR BLU ORTA MD [facility] 02-11-2024 17:05-0400 Mean blood pressure 99 mm[Hg] DR BLU ORTA MD [facility] 02-11-2024 17:05-0400 Respiratory rate 16 /min DR BLU ORTA MD [facility] 02-11-2024 17:05-0400 Systolic Blood Pressure Non-Invasive 139 mm[Hg] DR BLU ORTA MD [facility] 02-11-2024 16:50-0400 Diastolic Blood Pressure Non-Invasive 84 mm[Hg] DR BLU ORTA MD [facility] 02-11-2024 16:50-0400 Heart rate 76 /min DR LBU ORTA MD [facility] 02-11-2024 16:50-0400 Mean blood pressure 105 mm[Hg] DR BLU ORTA MD [facility] 02-11-2024 16:50-0400 Respiratory rate 16 /min DR BLU ORTA MD [facility] 02-11-2024 16:50-0400 Systolic Blood Pressure Non-Invasive 148 mm[Hg] DR BLU ORTA MD [facility] 02-11-2024 16:34-0400 Body temperature 97.52 [degF] DR BLU ORTA MD [facility] 02-11-2024 16:34-0400 Heart rate 72 /min DR BLU OTRA MD [facility] 02-11-2024 16:34-0400 Mean blood pressure 102 mm[Hg] DR BLU ORTA MD [facility] 02-11-2024 16:25-0400 Body temperature 96.91 [degF] DR BLU ORTA MD [facility] 02-11-2024 16:25-0400 Respiratory Rate - Anes 7 br/min DR BLU ORTA MD [facility] 02-11-2024 16:20-0400 Body temperature 97.07 [degF] DR BLU ORTA MD [facility] 02-11-2024 16:20-0400 Respiratory Rate - Anes 11 br/min DR BLU ORTA MD [facility] 02-11-2024 16:15-0400 Body temperature 97.2 [degF] DR BLU ORTA MD [facility] 02-11-2024 16:15-0400 Respiratory Rate - Anes 12 br/min DR BLU ORTA MD [facility] 02-11-2024 13:34-0400 Body height 167.[address] BLU ORTA MD [facility] 02-11-2024 13:34-0400 Body weight 83.[address] BLU ORTA MD [facility] 02-11-2024 13:34-0400 Heart rate 68 /min DR BLU ORTA MD [facility] 01-28-2024 13:50-0400 Body height [address] BLU ORTA MD [facility] 01-28-2024 13:50-0400 Body temperature 98.06 [degF] DR BLU ORTA MD [facility] 01-28-2024 13:50-0400 Body weight 84.[address] BLU ORTA MD [facility] 01-28-2024 13:50-0400 Body weight 30.81 kg/m2 DR BLU ORTA MD [facility] 01-28-2024 13:50-0400 Diastolic Blood Pressure Non-Invasive 57 mm[Hg] DR BLU ORTA MD [facility] 01-28-2024 13:50-0400 Heart rate 78 /min DR BLU ORTA MD [facility] 01-28-2024 13:50-0400 Systolic Blood Pressure Non-Invasive 151 mm[Hg] DR BLU ORTA MD [facility] 09-18-2023 12:50-0400 Body height 165.1 cm [facility], [facility].; [place] [employer] [facility], [employer]. 09-18-2023 12:50-0400 Body mass index (BMI) [Ratio] 31.45 kg/m2 [facility], [facility].; [place] [employer] [facility] HospitalYour Office Agent. 09-18-2023 12:50-0400 Body surface area Derived from formula 1.93 m2 [facility], [facility].; [place] [employer] [facility] HospitalYour Office Agent. 09-18-2023 12:50-0400 Body temperature 97.9 [degF] [facility].; [place] [employer] [facility] HospitalYour Office Agent. Comment on above: Method: Tympanic 09-18-2023 12:50-0400 Body weight 85.73 kg [facility], [facility].; [place] [employer] [facility] HospitalYour Office Agent. 09-18-2023 12:50-0400 Diastolic blood pressure 73 mm[Hg] [facility], [facility].; [place] [employer] [facility] HospitalYour Office Agent. Comment on above: Patient Position: Sitting; Cuff Location : Left Arm; Cuff Size: Standard 09-18-2023 12:50-0400 Heart rate 87 /min [facility], [facility].; [place] [employer] [facility] HospitalYour Office Agent. Comment on above: Pattern: Regular 09-18-2023 12:50-0400 Inhaled oxygen concentration 20 % [facility], [facility].; [employer]. Comment on above: Room air 09-18-2023 12:50-0400 Inhaled oxygen concentration 21 % [facility], [facility].; [place] [employer] [facility] HospitalYour Office Agent. Comment on above: Room air 09-18-2023 12:50-0400 SaO2% (BldA) [Mass fraction] 97 % [facility], [facility].; [place] [employer]. 09-18-2023 12:50-0400 Systolic blood pressure 131 mm[Hg] Nena Lake LPN [facility], [facility].; [facility], [facility]. Comment on above: Patient Position: Sitting; Cuff Location : Left Arm; Cuff Size: Standard 05-07-2023 13:54-0500 Body height 165.1 cm Carlo Aragon KAEL [facility], [facility].; [facility], [facility]. 05-07-2023 13:54-0500 Body mass index (BMI) [Ratio] 29.95 kg/m2 Carlo Aragon ACID STRENGTH INSPECTOR [facility], [facility].; [facility], [facility]. 05-07-2023 13:54-0500 Body surface area Derived from formula 1.89 m2 Carlo Mahesh ACID STRENGTH INSPECTOR [facility], [facility].; [facility], [facility]. 05-07-2023 13:54-0500 Body weight 81.65 kg Carlo Valadezon ACID STRENGTH INSPECTOR [facility], [facility].; [facility], [facility]. 05-07-2023 13:54-0500 Diastolic blood pressure 71 mm[Hg] Carlo Aragon ACID STRENGTH INSPECTOR [facility].; [facility], [facility]. Comment on above: Patient Position: Sitting; Cuff Location : Left Arm; Cuff Size: Standard 05-07-2023 13:54-0500 Heart rate 85 /min Carlo Aragon ACID STRENGTH INSPECTOR [facility], [facility].; [facility] Comment on above: Pattern: Regular 05-07-2023 13:54-0500 Systolic blood pressure 129 mm[Hg] Carlo Aragon ACID STRENGTH INSPECTOR [facility], [facility].; [facility], [facility]. Comment on above: Patient Position: Sitting; Cuff Location : Left Arm; Cuff Size: Standard 04-15-2023 10:28-0400 Body height 165.1 cm Jyoti Phan RN [facility], [facility].; [facility], [facility]. 04-15-2023 10:28-0400 Body mass index (BMI) [Ratio] 29.62 kg/m2 Jyoti Phan RN [facility], [facility].; [facility], [facility]. 04-15-2023 10:28-0400 Body surface area Derived from formula 1.88 m2 Jyoti Phan RN [facility] HospitalYour Office Agent.; [employer]. 04-15-2023 10:28-0400 Body temperature 98.2 [degF] Jyoti Phan RN [employer]. Comment on above: Method: Tympanic 04-15-2023 10:28-0400 Body weight 80.74 kg Jyoti Phan RN [employer]. 04-15-2023 10:28-0400 Diastolic blood pressure 78 mm[Hg] Jyoti Phan RN [employer]. Comment on above: Patient Position: Sitting; Cuff Location : Right Arm; Cuff Size: Standard 04-15-2023 10:28-0400 Heart rate 89 /min Jyoti Phan RN [employer]. Comment on above: Pattern: Regular 04-15-2023 10:28-0400 Inhaled oxygen concentration 20 % Jyoti Phan RN [employer]. Comment on above: Room air 04-15-2023 10:28-0400 Inhaled oxygen concentration 21 % Jyoti Phan RN [employer]. Comment on above: Room air 04-15-2023 10:28-0400 SaO2% (BldA) [Mass fraction] 96 % Jyoti Phan RN [place] [employer].; [employer]. 04-15-2023 10:28-0400 Systolic blood pressure 134 mm[Hg] Jyoti Phan RN [employer]. Comment on above: Patient Position: Sitting; Cuff Location : Right Arm; Cuff Size: Standard 04-07-2023 14:20-0400 Body weight 83.46 kg Carlo Aragon LPN [employer].; [employer]. 04-07-2023 14:20-0400 Diastolic blood pressure 53 mm[Hg] Carlo Aragon LPN [employer]. Comment on above: Patient Position: Sitting; Cuff Location : Left Arm; Cuff Size: Standard 04-07-2023 14:20-0400 Heart rate 99 /min Carlo Aragon LPN [facility].; [place] [employer] [facility] HospitalYour Office [facility]. Comment on above: Pattern: Regular 04-07-2023 14:20-0400 Systolic blood pressure 128 mm[Hg] Carlo Aragon LPN [facility].; [employer]. Comment on above: Patient Position: Sitting; Cuff Location : Left Arm; Cuff Size: Standard 2022 13:38-0400 Body height 165.1 cm Jyoti Phan RN [facility], [facility].; [place] [facility] [employer] [facility] [place]. 2022 13:38-0400 Body mass index (BMI) [Ratio] 30.95 kg/m2 Jyoti Phan RN [facility].; [place] [employer] [facility] [place]. 2022 13:38-0400 Body surface area Derived from formula 1.92 m2 Jyoti Phan RN [facility].; [employer] [facility], [facility]. 2022 13:38-0400 Body weight 84.37 kg Jyoti Phan RN [place] [facility].; [place] [employer] [facility] HospitalFl[facility]. 2022 13:38-0400 Diastolic blood pressure 75 mm[Hg] Jyoti Phan RN [facility].; [employer]. Comment on above: Patient Position: Sitting; Cuff Location : Left Arm; Cuff Size: Standard 2022 13:38-0400 Heart rate 98 /min Jyoti Phan RN [place] [facility] HospitalFl[facility].; [employer]. Comment on above: Pattern: Regular 2022 13:38-0400 Systolic blood pressure 128 mm[Hg] Jyoti Phan RN [place] [facility].; [employer]. Comment on above: Patient Position: Sitting; Cuff Location : Left Arm; Cuff Size: Standard 04-03-2022 10:48-0400 Body height 165.1 cm Soumya Garces LPN [facility] HospitalYour [facility].; [place] [employer] [facility]Your [facility]. 04-03-2022 10:48-0400 Body mass index (BMI) [Ratio] 30.79 kg/m2 Soumya Garcia Mili [facility], [facility].; [place] [employer] [facility] HospitalYour Office [facility]. 04-03-2022 10:48-0400 Body surface area Derived from formula 1.91 m2 Soumya Radha Garces ACID STRENGTH INSPECTOR [facility], [facility].; [employer]. 04-03-2022 10:48-0400 Body weight 83.92 kg Soumya Garcia Mili [employer] [facility].; [employer]. 04-03-2022 10:48-0400 Diastolic blood pressure 82 mm[Hg] Soumya Garcia Mili [employer] [facility].; [employer]. Comment on above: Patient Position: Sitting; Cuff Location : Left Arm; Cuff Size: Standard 04-03-2022 10:48-0400 Heart rate 92 /min Soumya Garcia Mili ACID STRENGTH INSPECTOR [facility]Fl[facility].; [employer]. Comment on above: Pattern: Regular 04-03-2022 10:48-0400 Systolic blood pressure 132 mm[Hg] Soumya Garcia Mili [employer] [facility].; [employer]. Comment on above: Patient Position: Sitting; Cuff Location : Left Arm; Cuff Size: Standard 01-30-2022 13:58-0400 Body weight 83.92 kg Jacquie Don MA [facility], [facility].; [place] [employer]. 01-30-2022 13:58-0400 Diastolic blood pressure 88 mm[Hg] Jacquie Don MA [facility] HospitalYour Office [facility].; [employer]. Comment on above: Patient Position: Sitting; Cuff Location : Left Arm; Cuff Size: Standard 01-30-2022 13:58-0400 Heart rate 81 /min Jacquie Don MA [place] [employer] [facility] HospitalYour Office Agent.; [employer]. Comment on above: Pattern: Regular 01-30-2022 13:58-0400 Systolic blood pressure 142 mm[Hg] Jacquie Don MA [place] [employer] [facility] HospitalYour Office Agent.; [employer]. Comment on above: Patient Position: Sitting; Cuff Location : Left Arm; Cuff Size: Standard 01-25-2022 13:11-0400 Diastolic blood pressure 71 mm[Hg] Elizabeth Noonan LPN [facility], [facility].; [facility], [facility]. Comment on above: Patient Position: Sitting; Cuff Location : Left Arm; Cuff Size: Standard 01-25-2022 13:11-0400 Heart rate 88 /min Elizabeth Noonan LPN [facility], [facility].; [facility], [facility]. Comment on above: Pattern: Regular 01-25-2022 13:11-0400 Systolic blood pressure 119 mm[Hg] Elizabeth Noonan LPN [facility], [facility].; [facility], [facility]. Comment on above: Patient Position: Sitting; Cuff Location : Left Arm; Cuff Size: Standard 01-25-2022 13:090400 Body height 165.1 cm Elizabeth Noonan LPN [facility], [facility].; [facility] 01-25-2022 13:09-0400 Body mass index (BMI) [Ratio] 30.95 kg/m2 Elizabeth Noonan LPN [facility], [facility].; [facility] 01-25-2022 13:09-0400 Body surface area Derived from formula 1.92 m2 Elizabeth Noonan LPN [facility], [facility].; [facility] 01-25-2022 13:09-0400 Body temperature 98.8 [degF] Elizabeth Noonan LPN [facility], [facility].; [place] [facility] Comment on above: Method: Tympanic 01-25-2022 13:090400 Body weight 84.37 kg Elizabeth Noonan LPN [facility], [facility].; [facility] 01-25-2022 13:09-0400 Diastolic blood pressure 88 mm[Hg] Elizabeth Noonan LPN [facility], [facility].; [employer] Comment on above: Patient Position: Sitting; Cuff Location : Left Arm; Cuff Size: Standard 01-25-2022 13:09-0400 Heart rate 89 /min Elizabeth Noonan LPN [facility], [facility].; [facility], [employer]. Comment on above: Pattern: Regular 01-25-2022 13:09-0400 Inhaled oxygen concentration 20 % Elizabeth Noonan LPN [facility], [facility].; [place] [employer] [facility] HospitalYour [facility]. Comment on above: Room air 01-25-2022 13:09-0400 Inhaled oxygen concentration 21 % Elizabeth Noonan LPN [facility].; [employer]. Comment on above: Room air 01-25-2022 13:09-0400 SaO2% (BldA) [Mass fraction] 96 % Elizabeth Noonan LPN [facility], [facility].; [employer], [employer]. 01-25-2022 13:09-0400 Systolic blood pressure 137 mm[Hg] Elizabeth Noonan LPN [facility], [facility].; [employer], [employer]. Comment on above: Patient Position: Sitting; Cuff Location : Left Arm; Cuff Size: Standard 06-14-2020 14:02-0500 Body height 165.1 cm Elizabeth Noonan LPN [facility], [facility].; [employer], [employer]. 06-14-2020 14:02-0500 Body mass index (BMI) [Ratio] 27.79 kg/m2 Elizabeth Noonan LPN [facility], [facility].; [employer], [employer]. 06-14-2020 14:02-0500 Body surface area Derived from formula 1.83 m2 Elizabeth Noonan LPN [facility], [facility].; [employer], [employer]. 06-14-2020 14:02-0500 Body weight 75.75 kg Elizabeth Noonan LPN [facility], [facility].; [employer], [employer]. 06-14-2020 14:02-0500 Diastolic blood pressure 78 mm[Hg] Elizabeth Noonan LPN [facility], [facility].; [employer], [employer]. Comment on above: Patient Position: Sitting; Cuff Location : Left Arm; Cuff Size: Standard 06-14-2020 14:02-0500 Heart rate 72 /min Elizabeth Noonan LPN [facility], [facility].; [employer]. Comment on above: Pattern: Regular 06-14-2020 14:02-0500 Systolic blood pressure 131 mm[Hg] Elizabeth Noonan LPN [facility], [facility].; [place] [employer] [facility], [employer]. Comment on above: Patient Position: Sitting; Cuff Location : Left Arm; Cuff Size: Standard 12-21-2019 13:40-0400 Body height 165.1 cm Elizabeth Noonan LPN [facility], [facility].; [place] [facility] 12-21-2019 13:40-0400 Body mass index (BMI) [Ratio] 29.95 kg/m2 Elizabeth Noonan LPN [facility] [place] [facility], [facility] 12-21-2019 13:40-0400 Body surface area Derived from formula 1.89 m2 Elizabeth Noonan LPN [facility], [facility].; [place] [facility], [facility]. 12-21-2019 13:40-0400 Body weight 81.65 kg Elizabeth Noonan ACID STRENGTH INSPECTOR [facility], [facility].; [place] [facility], [facility]. 12-21-2019 13:40-0400 Diastolic blood pressure 90 mm[Hg] Elizabeth Noonan ACID STRENGTH INSPECTOR [facility], [facility].; [employer], [employer]. Comment on above: Patient Position: Sitting; Cuff Location : Left Arm; Cuff Size: Standard 12-21-2019 13:40-0400 Heart rate 77 /min Elizabeth Noonan LPN [facility], [facility].; [employer], [employer] [employer]. Comment on above: Pattern: Regular 12-21-2019 13:40-0400 Systolic blood pressure 149 mm[Hg] Elizabeth Noonan LPN [facility], [facility].; [place] [facility], [facility] Comment on above: Patient Position: Sitting; Cuff Location : Left Arm; Cuff Size: Standard 07-07-2019 13:26-0500 Body height 165.1 cm Shayy Esquivel ACID STRENGTH INSPECTOR [facility], Inc.; [place] [facility], [facility] 07-07-2019 13:26-0500 Body mass index (BMI) [Ratio] 30.29 kg/m2 Shayy Esquivel [facility], [facility].; [place] [employer], [employer] 07-07-2019 13:26-0500 Body surface area Derived from formula 1.9 m2 Guadalupe Alvin [facility], [facility].; [place] [employer], [employer]. 07-07-2019 13:26-0500 Body temperature 99.3 [degF] Shayy Esquivel LPN [facility], Inc.; [employer] [facility], [employer]. Comment on above: Method: Tympanic 07-07-2019 13:26-0500 Body weight 82.56 kg Shayy Esquivel LPN [facility], Inc.; [employer] 07-07-2019 13:26-0500 Diastolic blood pressure 79 mm[Hg] [facility] [employer], [employer] Comment on above: Patient Position: Sitting; Cuff Location : Left Arm; Cuff Size: Large 07-07-2019 13:26-0500 Heart rate 106 /min Shayy Esquivel [facility].; [place] [employer], [employer] Comment on above: Pattern: Regular 07-07-2019 13:26-0500 Inhaled oxygen concentration 20 % Shayy Esquivel [facility], [facility].; [place] [employer], [employer] Comment on above: Room air 07-07-2019 13:26-0500 Inhaled oxygen concentration 21 % Shayy Esquivel [facility], [facility].; [employer], [employer]. Comment on above: Room air 07-07-2019 13:26-0500 SaO2% (BldA) [Mass fraction] 97 % Shayy Esquivel [facility], [facility].; [employer] 07-07-2019 13:26-0500 Systolic blood pressure 131 mm[Hg] Shayy Esquivel LPN [facility], Inc.; [employer] Comment on above: Patient Position: Sitting; Cuff Location : Left Arm; Cuff Size: Large 06-03-2019 14:44-0500 Body height 165.1 cm Jyoti Phan RN [facility], [employer].; [employer] 06-03-2019 14:44-0500 Body mass index (BMI) [Ratio] 30.62 kg/m2 Jyoti Phan RN [facility], [employer].; [employer]. 06-03-2019 14:44-0500 Body surface area Derived from formula 1.91 m2 Jyoti Phan RN [employer].; [employer]. 06-03-2019 14:44-0500 Body weight 83.46 kg Jyoti Phan RN [employer]. 06-03-2019 14:44-0500 Diastolic blood pressure 68 mm[Hg] Jyoti Phan RN [employer].; [employer]. Comment on above: Patient Position: Sitting; Cuff Location : Right Arm; Cuff Size: Standard 06-03-2019 14:44-0500 Heart rate 78 /min Jyoti Phan RN [employer].; [employer]. Comment on above: Pattern: Regular 06-03-2019 14:44-0500 Systolic blood pressure 114 mm[Hg] Jyoti Phan RN [employer].; [employer]. Comment on above: Patient Position: Sitting; Cuff Location : Right Arm; Cuff Size: Standard 05-29-2018 15:01-0500 Body height 165.1 cm DeLille CellarsShirin PA-C Work Phone: [employer].; [employer]. 05-29-2018 15:01-0500 Body mass index (BMI) [Ratio] 29.29 kg/m2 [employer] CellarsShirin PA-C Work Phone: [employer].; [employer]. 05-29-2018 15:01-0500 Body surface area Derived from formula 1.87 m2 LuAWAKShirin PA-C Work Phone: [employer].; [employer]. 05-29-2018 15:01-0500 Body temperature 99.6 [degF] LuAWAKShirin PA-C Work Phone: [employer].; [employer]. 05-29-2018 15:01-0500 Body weight 79.83 kg LuAWAKShirin PA-C Work Phone: [employer].; [employer]. 05-29-2018 15:01-0500 Diastolic blood pressure 70 mm[Hg] Luke Shirin PA-C Work Phone: [place] [employer]. Comment on above: Patient Position: Sitting; Cuff Location : Left Arm; Cuff Size: Standard 05-29-2018 15:01-0500 Heart rate 94 /min Luke Shirin PA-C Work Phone: [place] [employer].; [employer]. Comment on above: Pattern: Regular 05-29-2018 15:01-0500 Inhaled oxygen concentration 20 % Luke Shirin PA-C Work Phone: [employer].; [employer]. Comment on above: Room air 05-29-2018 15:01-0500 Inhaled oxygen concentration 21 % Luke Shirin PA-C Work Phone: [place] [employer].; [employer]. Comment on above: Room air 05-29-2018 15:01-0500 SaO2% (BldA) [Mass fraction] 99 % Luke Shirin PA-C Work Phone: [employer].; [employer]. 05-29-2018 15:01-0500 Systolic blood pressure 117 mm[Hg] Luke Shirin PA-C Work Phone: [employer].; [employer]. Comment on above: Patient Position: Sitting; Cuff Location : Left Arm; Cuff Size: Standard 04-13-2018 14:54-0400 Body height 165.[address] [facility], [employer].; [employer]. 04-13-2018 14:54-0400 Body mass index (BMI) [Ratio] 28.95 kg/m2 [facility] [employer], [employer].; [employer]. 04-13-2018 14:54-0400 Body surface area Derived from formula 1.[address] [facility], [facility].; [employer]. 04-13-2018 14:54-0400 Body weight 78.93 kg Shayy Esquivel [facility].; [employer] 04-13-2018 14:54-0400 Diastolic blood pressure 72 mm[Hg] Shayy Esquivel [facility].; [employer], [employer]. Comment on above: Patient Position: Sitting; Cuff Location : Left Arm; Cuff Size: Large 04-13-2018 14:54-0400 Heart rate 83 /min Shayy Esquivel [facility].; [employer], [employer]. Comment on above: Pattern: Regular 04-13-2018 14:54-0400 Systolic blood pressure 116 mm[Hg] Shayy Esquivel [facility].; [employer], [employer]. Comment on above: Patient Position: Sitting; Cuff Location : Left Arm; Cuff Size: Large 10-10-2017 10:34-0400 Body height 165.1 cm Jyoti Phan RN [facility], Inc.; [employer], [employer]. 10-10-2017 10:34-0400 Body mass index (BMI) [Ratio] 28.95 kg/m2 Jyoti Phan RN [place] [facility].; [employer], [employer]. 10-10-2017 10:34-0400 Body surface area Derived from formula 1.86 m2 Jyoti Phan RN [place] [facility], [facility].; [employer], [employer]. 10-10-2017 10:34-0400 Body temperature 98.3 [degF] Jyoti Phan RN [place] [facility], [employer].; [employer]. Comment on above: Method: Tympanic 10-10-2017 10:34-0400 Body weight 78.93 kg Jyoti Phan RN [place] [facility].; [employer]. 10-10-2017 10:34-0400 Diastolic blood pressure 71 mm[Hg] Jyoti Phan RN [place] [facility], [employer].; [employer]. Comment on above: Patient Position: Sitting; Cuff Location : Right Arm; Cuff Size: Standard 10-10-2017 10:34-0400 Heart rate 60 /min Jyoti Phan RN [employer].; [employer]. Comment on above: Pattern: Regular 10-10-2017 10:34-0400 Systolic blood pressure 117 mm[Hg] Jyoti Phan RN [employer]. Comment on above: Patient Position: Sitting; Cuff Location : Right Arm; Cuff Size: Standard 08-11-2017 11:16-0500 Body height 165.1 cm Jyoti Phan RN [employer]. 08-11-2017 11:16-0500 Body mass index (BMI) [Ratio] 29.29 kg/m2 Jyoti Phan RN [employer] 08-11-2017 11:16-0500 Body surface area Derived from formula 1.87 m2 Jyoti Phan RN [employer].; [employer] 08-11-2017 11:16-0500 Body temperature 98.5 [degF] Jyoti Phan RN [employer].; [employer]. Comment on above: Method: Tympanic 08-11-2017 11:16-0500 Body weight 79.83 kg Jyoti Phan RN [employer] 08-11-2017 11:16-0500 Diastolic blood pressure 77 mm[Hg] Jyoti Phan RN [employer].; [employer]. Comment on above: Patient Position: Sitting; Cuff Location : Left Arm; Cuff Size: Standard 08-11-2017 11:16-0500 Heart rate 87 /min Jyoti Phan RN [employer].; [employer]. Comment on above: Pattern: Regular 08-11-2017 11:16-0500 Systolic blood pressure 127 mm[Hg] Jyoti Phan RN [employer].; [employer]. Comment on above: Patient Position: Sitting; Cuff Location : Left Arm; Cuff Size: Standard 08-20-2016 15:32-0500 Body height 165.1 cm Luke Shirin PA-C Work Phone: [employer].; [employer]. 08-20-2016 15:32-0500 Body mass index (BMI) [Ratio] 29.79 kg/m2 Luke Shirin PA-C Work Phone: [employer].; [employer]. 08-20-2016 15:32-0500 Body surface area Derived from formula 1.89 m2 Luke Shirin PA-C Work Phone: [employer]; [employer]. 08-20-2016 15:32-0500 Body temperature 98.8 [degF] Luke Shirin PA-C Work Phone: [employer].; [employer]. 08-20-2016 15:32-0500 Body weight 81.19 kg Luke Shirin PA-C Work Phone: [employer].; [employer]. 08-20-2016 15:32-0500 Diastolic blood pressure 85 mm[Hg] Luke Shirin PA-C Work Phone: [employer].; [employer]. Comment on above: Patient Position: Sitting; Cuff Location : Left Arm; Cuff Size: Standard 08-20-2016 15:32-0500 Heart rate 94 /min Luke Shirin PA-C Work Phone: [employer]; [employer]. Comment on above: Pattern: Regular 08-20-2016 15:32-0500 Systolic blood pressure 147 mm[Hg] Luke Shirin PA-C Work Phone: [employer].; [employer]. Comment on above: Patient Position: Sitting; Cuff Location : Left Arm; Cuff Size: Standard 02-01-2016 13:08-0400 Body height 165.1 cm Luke Shirin PA-C Work Phone: [employer].; [employer]. 02-01-2016 13:08-0400 Body mass index (BMI) [Ratio] 30.29 kg/m2 Luke Shirin PA-C Work Phone: [employer].; [employer]. 02-01-2016 13:08-0400 Body surface area Derived from formula 1.9 m2 Luke Shirin PA-C Work Phone: [employer].; [employer]. 02-01-2016 13:08-0400 Body weight 82.56 kg Luke Shirin PA-C Work Phone: [employer].; [employer]. 02-01-2016 13:08-0400 Diastolic blood pressure 86 mm[Hg] Luke Shirin PA-C Work Phone: [employer].; [employer]. Comment on above: Patient Position: Sitting; Cuff Location : Left Arm; Cuff Size: Standard 02-01-2016 13:08-0400 Heart rate 77 /min Luke Shirin PA-C Work Phone: [employer].; [employer]. Comment on above: Pattern: Regular 02-01-2016 13:08-0400 Systolic blood pressure 153 mm[Hg] Luke Shirin PA-C Work Phone: [employer].; [employer]. Comment on above: Patient Position: Sitting; Cuff Location : Left Arm; Cuff Size: Standard 11-20-2015 15:30-0400 Body height 165.1 cm [facility]quivel [facility] [employer]. 11-20-2015 15:30-0400 Body mass index (BMI) [Ratio] 29.95 kg/m2 [facility].; [employer]. 11-20-2015 15:30-0400 Body surface area Derived from formula 1.89 m2 Shayy Esquivel ACID STRENGTH INSPECTOR [facility], [facility].; [place] [facility], [employer]. 11-20-2015 15:30-0400 Body temperature 99.1 [degF] Shayy Esquivel ACID STRENGTH INSPECTOR [facility], [facility].; [employer]. Comment on above: Method: Tympanic 11-20-2015 15:30-0400 Body weight 81.65 kg Shayy Esquivel [facility] [employer]. 11-20-2015 15:30-0400 Diastolic blood pressure 94 mm[Hg] Shayy Esquivel [facility], [employer].; [employer]. Comment on above: Patient Position: Sitting; Cuff Location : Left Arm; Cuff Size: Large 11-20-2015 15:30-0400 Heart rate 90 /min Shayy Esquivel [facility], [employer].; [employer]. Comment on above: Pattern: Regular 11-20-2015 15:30-0400 Inhaled oxygen concentration 20 % Shayy Esquivel [facility], [employer].; [employer]. Comment on above: Room air 11-20-2015 15:30-0400 Inhaled oxygen concentration 21 % Shayy Esquivel [facility] [employer]. Comment on above: Room air 11-20-2015 15:30-0400 SaO2% (BldA) [Mass fraction] 95 % Shayy Esquivel [facility] [employer]. 11-20-2015 15:30-0400 Systolic blood pressure 147 mm[Hg] Shayy Esquivel [facility], [employer].; [employer]. Comment on above: Patient Position: Sitting; Cuff Location : Left Arm; Cuff Size: Large 02-09-2015 11:46-0400 Body height 165.1 cm Shayy Esquivel [facility], [employer].; [employer] 02-09-2015 11:46-0400 Body mass index (BMI) [Ratio] 28.79 kg/m2 Shayy Esquivel LPN [facility], [facility].; [employer] [facility], [employer]. 02-09-2015 11:46-0400 Body surface area Derived from formula 1.86 m2 Shayy Esquivel ACID STRENGTH INSPECTOR [facility], [facility].; [place] [facility], [employer]. 02-09-2015 11:46-0400 Body temperature 98.4 [degF] Shayy Esquivel [facility], [facility].; [employer]. Comment on above: Method: Tympanic 02-09-2015 11:46-0400 Body weight 78.47 kg Shayy Esquivel [facility], [facility].; [employer]. 02-09-2015 11:46-0400 Diastolic blood pressure 90 mm[Hg] Shayy Esquivel ACID STRENGTH INSPECTOR [facility], [facility].; [employer]. Comment on above: Patient Position: Sitting; Cuff Location : Left Arm; Cuff Size: Large 02-09-2015 11:46-0400 Heart rate 101 /min Shayy [facility]quivel [facility].; [employer]. Comment on above: Pattern: Regular 02-09-2015 11:46-0400 Inhaled oxygen concentration 20 % Shayy Esquivel [facility], [facility].; [employer]. Comment on above: Room air 02-09-2015 11:46-0400 Inhaled oxygen concentration 21 % Shayy Esquivel [facility], [employer].; [employer]. Comment on above: Room air 02-09-2015 11:46-0400 SaO2% (BldA) [Mass fraction] 94 % Shayy [facility]quivel [facility].; [employer]. 02-09-2015 11:46-0400 Systolic blood pressure 141 mm[Hg] Shayy Esquivel [facility], [employer].; [employer]. Comment on above: Patient Position: Sitting; Cuff Location : Left Arm; Cuff Size: Large 09-21-2014 10:51-0400 Body height 165.1 cm Galina Marmolejo PA-C Work Phone: [employer]; [employer] 09-21-2014 10:51-0400 Body mass index (BMI) [Ratio] 28.29 kg/m2 Galina Peterser PA-C Work Phone: [employer]; [employer]. 09-21-2014 10:51-0400 Body surface area Derived from formula 1.85 m2 Galina Peterser PA-C Work Phone: [employer]; [employer]. 09-21-2014 10:51-0400 Body temperature 98.6 [degF] Galina Peterser PA-C Work Phone: [employer]; [employer]. Comment on above: Method: Tympanic 09-21-2014 10:51-0400 Body weight 77.11 kg Galina Peterser PA-C Work Phone: [employer]; [employer]. 09-21-2014 10:51-0400 Diastolic blood pressure 90 mm[Hg] Galina Peterser PA-C Work Phone: [employer]; [employer]. Comment on above: Patient Position: Sitting; Cuff Location : Left Arm; Cuff Size: Standard 09-21-2014 10:51-0400 Heart rate 86 /min Galina Peterser PA-C Work Phone: [employer]; [employer]. Comment on above: Pattern: Regular 09-21-2014 10:51-0400 Inhaled oxygen concentration 20 % Galina Hyatt Marmolejo PA-C Work Phone: [employer]; [employer]. Comment on above: Room air 09-21-2014 10:51-0400 Inhaled oxygen concentration 21 % Galina Edmar Marmolejo PA-C Work Phone: [employer]; [employer]. Comment on above: Room air 09-21-2014 10:51-0400 SaO2% (BldA) [Mass fraction] 96 % Galina Hyatt Jaleel SALDIVAR Work Phone: [facility].; [employer] 09-21-2014 10:51-0400 Systolic blood pressure 132 mm[Hg] Galina Hyatt Jaleel SALDIVAR Work Phone: [facility].; [employer]. Comment on above: Patient Position: Sitting; Cuff Location : Left Arm; Cuff Size: Standard 08-03-2014 15:17-0500 Body height 165.1 cm Mansi Sharp LPN [facility], [facility].; [employer]. 08-03-2014 15:17-0500 Body mass index (BMI) [Ratio] 28.33 kg/m2 Mansi Sharp LPN [place] [facility], [employer].; [employer] 08-03-2014 15:17-0500 Body surface area Derived from formula 1.85 m2 Mansi Sharp LPN [place] [facility].; [employer]. 08-03-2014 15:17-0500 Body temperature 98 [degF] Mansi [facility] HospitalYour [facility] Agent.; [employer]. Comment on above: Method: Tympanic 08-03-2014 15:17-0500 Body weight 77.23 kg Mansi Sharp LPN [place] [facility].; [employer] 08-03-2014 15:17-0500 Diastolic blood pressure 73 mm[Hg] Mansi Sharp LPN [place] [facility] Hospital[facility].; [employer]. Comment on above: Patient Position: Sitting; Cuff Location : Left Arm; Cuff Size: Standard 08-03-2014 15:17-0500 Heart rate 85 /min Mansi Sharp LPN [place] [facility], [employer].; [employer]. Comment on above: Pattern: Regular 08-03-2014 15:17-0500 Inhaled oxygen concentration 20 % Mansi Sharp LPN [place] [facility], [employer].; [employer]. Comment on above: Room air 08-03-2014 15:17-0500 Inhaled oxygen concentration 21 % Mansi Weirena [employer] [facility], [facility].; [employer]. Comment on above: Room air 08-03-2014 15:17-0500 SaO2% (BldA) [Mass fraction] 96 % Mansi Aron [employer] [facility].; [employer]. 08-03-2014 15:17-0500 Systolic blood pressure 117 mm[Hg] [facility]ron [facility], [facility].; [employer]. Comment on above: Patient Position: Sitting; Cuff Location : Left Arm; Cuff Size: Standard 05-27-2014 10:56-0500 Body height 165.1 cm Mansi Sharp LPN [facility], [facility].; [employer]. 05-27-2014 10:56-0500 Body mass index (BMI) [Ratio] 29.38 kg/m2 Mansi Sharp [facility] [employer] 05-27-2014 10:56-0500 Body surface area Derived from formula 1.88 m2 Mansi Kenirena [facility], [facility].; [employer]. 05-27-2014 10:56-0500 Body temperature 97.4 [degF] Mansi Weirena ACID STRENGTH INSPECTOR [place] [facility].; [employer]. Comment on above: Method: Tympanic 05-27-2014 10:56-0500 Body weight 80.09 kg Mansi Sharp LPN [place] [facility], [facility].; [employer]. 05-27-2014 10:56-0500 Diastolic blood pressure 87 mm[Hg] Mansi Aron [facility] HospitalYour Office Agent.; [employer]. Comment on above: Patient Position: Sitting; Cuff Location : Left Arm; Cuff Size: Standard 05-27-2014 10:56-0500 Heart rate 72 /min Mansi Sharp LPN [place] [facility], [employer].; [employer]. Comment on above: Pattern: Regular 05-27-2014 10:56-0500 Inhaled oxygen concentration 20 % Mansi Rogersirena [employer] [facility].; [employer]. Comment on above: Room air 05-27-2014 10:56-0500 Inhaled oxygen concentration 21 % Mansi Rogersirena [employer] [facility].; [employer]. Comment on above: Room air 05-27-2014 10:56-0500 SaO2% (BldA) [Mass fraction] 95 % Mansi Rogersirena [facility].; [employer]. 05-27-2014 10:56-0500 Systolic blood pressure 133 mm[Hg] Mans[facility]irena [facility] HospitalYour Office Agent.; [employer]. Comment on above: Patient Position: Sitting; Cuff Location : Left Arm; Cuff Size: Standard 04-07-2014 16:15-0400 Body height 165.1 cm Iesha Peña MD Work Phone: [place] [facility] HospitalYour [facility].; [employer]. 04-07-2014 16:15-0400 Body mass index (BMI) [Ratio] 29.62 kg/m2 Iesha Peña MD Work Phone: [employer] 04-07-2014 16:15-0400 Body surface area Derived from formula 1.88 m2 Iesha Peña MD Work Phone: [place] [facility] HospitalYour [facility].; [employer]. 04-07-2014 16:15-0400 Body weight 80.74 kg Iesha Peña MD Work Phone: [place] [facility] HospitalYour [facility].; [employer]. 04-07-2014 16:15-0400 Diastolic blood pressure 85 mm[Hg] Iesha Peña MD Work Phone: [place] [employer]. Comment on above: Patient Position: Sitting; Cuff Location : Right Arm; Cuff Size: Standard 04-07-2014 16:15-0400 Heart rate 84 /min Iesha Peña MD Work Phone: [place] [employer].; [employer]. Comment on above: Pattern: Regular 04-07-2014 16:15-0400 Inhaled oxygen concentration 20 % Iesha Peña MD Work Phone: [place] [facility] HospitalYour Office [facility].; [employer]. Comment on above: Room air 04-07-2014 16:15-0400 Inhaled oxygen concentration 21 % Iesha Peña MD Work Phone: [place] [employer].; [employer]. Comment on above: Room air 04-07-2014 16:15-0400 SaO2% (BldA) [Mass fraction] 97 % Iesha Peña MD Work Phone: [place] [employer].; [employer]. 04-07-2014 16:15-0400 Systolic blood pressure 159 mm[Hg] Iesha Peña MD Work Phone: [place] [employer].; [employer]. Comment on above: Patient Position: Sitting; Cuff Location : Right Arm; Cuff Size: Standard 02-03-2014 16:00-0400 Body height 165.1 cm Mary Coreas LPN [place] [facility], [employer].; [employer]. 02-03-2014 16:00-0400 Body mass index (BMI) [Ratio] 29.45 kg/m2 Mary Coreas LPN [employer] [facility].; [employer]. 02-03-2014 16:00-0400 Body surface area Derived from formula 1.88 m2 Mary Coreas LPN [place] [facility].; [employer]. 02-03-2014 16:00-0400 Body temperature 97.6 [degF] Mary Coreas ACID STRENGTH INSPECTOR [employer].; [employer]. Comment on above: Method: Tympanic 02-03-2014 16:00-0400 Body weight 80.29 kg Mary Coreas LPN [employer]. 02-03-2014 16:00-0400 Diastolic blood pressure 91 mm[Hg] Mary Coreas LPN [facility] [place] [facility], [employer]. Comment on above: Patient Position: Sitting; Cuff Location : Right Arm; Cuff Size: Standard 02-03-2014 16:00-0400 Heart rate 95 /min Mary Coreas LPN [facility].; [employer], [employer]. Comment on above: Pattern: Regular 02-03-2014 16:00-0400 Inhaled oxygen concentration 20 % Mary Coreas LPN [facility].; [place] [facility], [employer] [employer]. Comment on above: Room air 02-03-2014 16:00-0400 Inhaled oxygen concentration 21 % Mary Coreas LPN [facility] [place] [facility], [employer]. Comment on above: Room air 02-03-2014 16:00-0400 SaO2% (BldA) [Mass fraction] 97 % Mary Coreas LPN [facility] [place] [facility], [employer]. 02-03-2014 16:00-0400 Systolic blood pressure 146 mm[Hg] Mary Coreas LPN [facility] [place] [employer], [employer]. Comment on above: Patient Position: Sitting; Cuff Location : Right Arm; Cuff Size: Standard 10-12-2013 [id number]:[id number] Body height 165.1 cm Mary Coreas LPN [facility] [place] [facility] 10-12-2013 15:04-0400 Body mass index (BMI) [Ratio] 28.62 kg/m2 Mary Coreas LPN [facility] [place] [facility], [employer]. 10-12-2013 [id number]:[id number] Body surface area Derived from formula 1.86 m2 Mary Coreas LPN [facility] [employer] [facility], [employer]. 10-12-2013 [id number] Body temperature 97.5 [degF] Mary Coreas LPN [facility] [employer], [employer]. Comment on above: Method: Tympanic 10-12-2013 [id number] Body weight 78.02 kg Mary Coreas LPN [facility] [employer] 10-12-2013 15:04-0400 Diastolic blood pressure 92 mm[Hg] Mary Anisha Coreas LPN [facility] [employer], [employer]. Comment on above: Patient Position: Sitting; Cuff Location : Left Arm; Cuff Size: Standard 10-12-2013 15:04-0400 Heart rate 87 /min Mary Anisha Coreas LPN [facility] [employer]. Comment on above: Pattern: Regular 10-12-2013 15:04-0400 Systolic blood pressure 138 mm[Hg] Mary Anisha Coreas LPN [place] [facility] [employer], [employer]. Comment on above: Patient Position: Sitting; Cuff Location : Left Arm; Cuff Size: Standard 09-07-2012 10:55-0400 Body height 165.1 cm Mary Anisha Coreas LPN [place] [facility] [employer], [employer]. 09-07-2012 10:55-0400 Body mass index (BMI) [Ratio] 29.12 kg/m2 Mary Coreas [facility] [employer], [employer]. 09-07-2012 10:55-0400 Body surface area Derived from formula 1.87 m2 Mary Coreas ACID STRENGTH INSPECTOR [place] [facility] [employer], [employer]. 09-07-2012 10:55-0400 Body temperature 98.9 [degF] Marytoro Coreas [facility] [employer], [employer]. Comment on above: Method: Tympanic 09-07-2012 10:55-0400 Body weight 79.38 kg Mary Anisha Coreas ACID STRENGTH INSPECTOR [place] [facility] [employer], [employer]. 09-07-2012 10:55-0400 Diastolic blood pressure 79 mm[Hg] Mary Anisha Coreas ACID STRENGTH INSPECTOR [employer], [employer], [employer]. Comment on above: Patient Position: Sitting; Cuff Location : Right Arm; Cuff Size: Standard 09-07-2012 10:55-0400 Heart rate 97 /min Mary Anisha Coreas LPN [place] [facility], [employer]. Comment on above: Pattern: Regular 09-07-2012 10:55-0400 Systolic blood pressure 142 mm[Hg] Mary Coreas LPN [place] [employer]. Comment on above: Patient Position: Sitting; Cuff Location : Right Arm; Cuff Size: Standard 10-24-2010 14:49-0400 Body height 165.1 cm Luke Shirin PA-C Work Phone: [employer] 10-24-2010 14:49-0400 Body mass index (BMI) [Ratio] 28.22 kg/m2 Luke Shirin PA-C Work Phone: [employer] 10-24-2010 14:49-0400 Body surface area Derived from formula 1.84 m2 Luke Shirin PA-C Work Phone: [employer]. 10-24-2010 14:49-0400 Body temperature 98 [degF] Luke Shirin PA-C Work Phone: [employer]. Comment on above: Method: Tympanic 10-24-2010 14:49-0400 Body weight 76.93 kg Luke Shirin PA-C Work Phone: [employer]. 10-24-2010 14:49-0400 Diastolic blood pressure 75 mm[Hg] Luke Shirin PA-C Work Phone: [employer]. Comment on above: Patient Position: Sitting; Cuff Location : Right Arm; Cuff Size: Standard 10-24-2010 14:49-0400 Heart rate 97 /min Luke Shirin PA-C Work Phone: [employer]. Comment on above: Pattern: Regular 10-24-2010 14:49-0400 Systolic blood pressure 122 mm[Hg] Luke Shirin PA-C Work Phone: [facility]. Comment on above: Patient Position: Sitting; Cuff Location : Right Arm; Cuff Size: Standard Encounters Encounter Date Encounter Type Care Provider Facility Start: 03-08-2025 ambulatory Jay Vasquez Facility :[facility] Start: 02-02-2025 End: 02-02-2025 Historical Summary Yfn Luaetler PA-C Work [facility] Start: 02-02-2025 End: 02-02-[address] Jay Vasquez MD -[facility] Work Phone: Start: 02-02-2025 End: 02-02-[address] Iesha Peña MD Work Phone: -[facility] Start: 11-29-2024 End: 11-29-2024 Office outpatient visit 25 minutes Luke Shirin PA-C [facility] Start: 07-26-2024 End: 07-26-2024 Orders Luke Shirin PA-C [facility] Start: 07-26-2024 ambulatory [facility] Start: 07-15-2024 ambulatory YFN CARPIO [facility] Start: 07-15-2024 End: 07-15-2024 Orders Yfn HannaShirin PA-C Work [facility] Start: 07-05-2024 End: 07-05-2024 ambulatory IESHA PEÑA MD Facility: Start: 07-05-2024 End: 07-05-[address] BLU ORTA MD [facility] Start: 07-01-2024 End: 07-05-2024 ambulatory IESHA PEÑA MD Facility:[facility] Start: 05-31-2024 End: 05-31-2024 Medication Luke Shirin PA-C Work [facility] Start: 05-17-2024 End: 05-17-2024 ambulatory YFN CARPIO [facility] Start: 05-17-2024 End: 05-17-2024 ambulatory YFN LUAETLER [facility] Start: 05-10-2024 End: 05-10-2024 Patient encounter procedure Yfn Carpio PA-C Work Phone: [facility] Start: 03-22-2024 ambulatory Jay Vasquez Facility [facility] Start: 03-22-2024 End: 03-22-2024 ambulatory [facility] Facility:[facility] Start: 03-03-2024 End: 03-03-2024 Orders Yfn Carpio PA-C Work Phone: [facility] Start: 02-27-2024 End: 02-27-[address] BLU ORTA MD Facility:A Start: 02-27-2024 End: 02-27-[address] BLU ORTA MD [facility] Start: 02-11-2024 End: 02-11-[address] BLU ORTA MD Facility:A Start: 02-11-2024 End: 02-11-[address] BLU ORTA MD [facility] Start: 01-28-2024 End: 01-28-[address] BLU ORTA MD [facility] Start: 01-28-2024 End: 01-28-[address] BLU ORTA MD Facility:A Start: 01-20-2024 End: 01-20-[address] BLU ORTA MD Facility:A Start: 01-20-2024 End: 01-20-[address] BLU ORTA MD [facility] Start: 11-25-2023 End: 11-29-2023 ambulatory AUBREY VALLEJO POLITICAL REPORTER-WILD LIFE PHOTOGRAPHER Facility:A Start: 11-25-2023 End: 11-25-2023 ambulatory AUBREY VALLEJO POLITICAL REPORTER-WILD LIFE PHOTOGRAPHER Facility:A Start: 11-25-2023 End: 11-25-2023 Patient encounter procedure AUBREY VALLEJO POLITICAL REPORTER-WILD LIFE PHOTOGRAPHER [facility] Start: 11-06-2023 End: 11-06-2023 ambulatory AUBREY VALLEJO POLITICAL REPORTER-WILD LIFE PHOTOGRAPHER Facility:A Start: 10-23-2023 End: 10-23-2023 ambulatory AUBREY VALLEJO POLITICAL REPORTER-WILD LIFE PHOTOGRAPHER Facility:A Start: 10-23-2023 End: 10-23-2023 Patient encounter procedure AUBREY VALLEJO POLITICAL REPORTER-WILD LIFE PHOTOGRAPHER [facility] Start: 09-25-2023 End: 09-25-2023 Orders Yfn Carpio PA-C Work Phone: [employer]. Start: 09-24-2023 End: 09-24-2023 [facility] Start: 09-23-2023 End: 09-23-2023 Orders Yfn Riveroler PA-C Work Phone: [employer]. Start: 09-18-2023 End: 09-18-2023 Office outpatient visit 15 minutes Yfn HannaShirin PA-C Work Phone: [employer]. Start: 05-07-2023 End: 05-07-2023 Patient encounter procedure Yfn Carpio PA-C Work Phone: [employer]. Start: 05-06-2023 End: 05-06-2023 Orders Yfn Carpio PA-C Work Phone: [employer]. Start: 05-06-2023 End: 05-06-2023 Patient encounter status Luke Shirin PA-C Work Phone: [employer] Start: 04-29-2023 End: 04-29-2023 Orders Luke Shirin PA-C Work Phone: [employer]. Start: 04-29-2023 End: 04-29-2023 Patient encounter status Luke Shirin PA-C Work Phone: [employer]. Start: 04-15-2023 End: 04-15-2023 Office outpatient visit 15 minutes Luke Shirin PA-C Work Phone: [employer]. Start: 04-07-2023 End: 04-07-2023 Office outpatient visit 15 minutes Luke Shirin PA-C Work Phone: [employer]. Start: 2022 End: 2022 Patient encounter procedure Luke Shirin PA-C Work Phone: [employer]. Start: 2022 End: 2022 Periodic preventive med est patient 65yrs& older Luke Shirin PA-C Work Phone: [employer]. Start: 04-17-2022 End: 04-17-2022 Orders Luke Shirin PA-C Work Phone: [employer]. Start: 04-16-2022 End: 04-16-2022 Orders Luke Shirin PA-C Work Phone: [employer] Start: 04-03-2022 End: 04-03-2022 Office outpatient visit 15 minutes Luke Shirin PA-C Work Phone: [employer]. Start: 01-30-2022 End: 01-30-2022 Office outpatient visit 15 minutes Luke Shirin PA-C Work Phone: [employer]. Start: 01-25-2022 End: 01-26-2022 Office outpatient visit 15 minutes Luke Shirin PA-C Work Phone: [employer]. Start: 06-14-2020 End: 06-15-2020 Patient encounter procedure Elizabeth Noonan LPN [employer]. Start: 06-14-2020 End: 06-15-2020 Periodic preventive med est patient 65yrs& older Luke Shirin PA-C Work Phone: [employer]. Start: 05-23-2020 End: 05-23-2020 Telephone follow-up Luke Shirin PA-C Work Phone: [employer]. Start: 05-12-2020 End: 05-12-2020 Telephone follow-up Luke Shirin PA-C Work Phone: [employer]. Start: 04-11-2020 End: 04-12-2020 Orders Luke Shirin PA-C Work Phone: [employer]. Start: 12-21-2019 End: 12-21-2019 Office outpatient visit 15 minutes Luke Shirin PA-C Work Phone: [employer]. Start: 07-07-2019 End: 07-07-2019 Office outpatient visit 15 minutes Luke Shirin PA-C Work Phone: [employer]. Start: 06-03-2019 End: 06-03-2019 Patient encounter procedure Jyoti Phan RN [employer]. Start: 06-03-2019 End: 06-03-2019 Periodic preventive med est patient 65yrs& older Luke Shirin PA-C Work Phone: [employer]. Start: 05-26-2019 End: 06-01-2019 Orders Yfn Luaetler PA-C Work Phone: [employer]. Start: 05-03-2019 End: 05-07-2019 Orders Luke Shirin PA-C Work Phone: [employer]. Start: 07-01-2018 End: 07-01-2018 Telephone follow-up Yfn Luaetler PA-C Work Phone: [employer]. Start: 05-29-2018 End: 05-29-2018 Office outpatient visit 15 minutes Luke Shirin PA-C Work Phone: [employer]. Start: 04-13-2018 End: 04-13-2018 Patient encounter status Minoo Velez (scribe) [employer]. Start: 04-13-2018 End: 04-13-2018 Periodic preventive med est patient 65yrs& older Luke Shirin PA-C Work Phone: [employer]. Start: 03-13-2018 End: 03-13-2018 Historical Summary Yfn Luaetler PA-C Work Phone: [employer]. Start: 01-12-2018 End: 01-12-2018 Orders Lulorenzo LuaShirin PA-C Work Phone: [employer]. Start: 10-10-2017 End: 10-10-2017 Office outpatient visit 15 minutes Luke Shirin PA-C Work Phone: [employer]. Start: 08-22-2017 End: 08-22-2017 Medication Luke Shirin PA-C Work Phone: [employer]. Start: 08-11-2017 End: 08-11-2017 Office outpatient visit 15 minutes Luke Shirin PA-C Work Phone: [employer]. Start: 08-20-2016 End: 08-20-2016 Patient encounter procedure Luke Shirin PA-C Work Phone: [employer]. Start: 02-01-2016 End: 02-05-2016 Office outpatient visit 15 minutes Luke Shirin PA-C Work Phone: [employer]. Start: 11-20-2015 End: 11-20-2015 Office outpatient visit 15 minutes Luke Shirin PA-C Work Phone: [employer]. Start: 02-09-2015 End: 02-09-2015 Office outpatient visit 15 minutes Luke Shirin PA-C Work Phone: [employer]. Start: 09-21-2014 End: 09-21-2014 Patient encounter procedure Luke Shirin PA-C Work Phone: [employer]. Start: 08-03-2014 End: 08-03-2014 Patient encounter procedure Luke Shirin PA-C Work Phone: [employer]. Start: 05-27-2014 End: 05-30-2014 Patient encounter procedure Luke Shirin PA-C Work Phone: [employer]. Start: 04-07-2014 End: 04-07-2014 Patient encounter procedure Luke Shirin PA-C Work Phone: [employer]. Start: 02-03-2014 End: 02-03-2014 Patient encounter procedure Luke Shirin PA-C Work Phone: [employer]. Start: 10-12-2013 End: 10-12-2013 Patient encounter procedure Luke Shirin PA-C Work Phone: [employer]. Start: 09-07-2012 End: 09-07-2012 Patient encounter procedure Luke Shirin PA-C Work Phone: [employer]. Start: 09-13-2011 End: 09-13-2011 Orders Luke Shirin PA-C [facility] Start: 10-24-2010 End: 10-26-2010 Patient encounter procedure Yfn Carpio PA-C Work Phone: [facility] Patient encounter procedure Jyoti Phan RN [facility].; [facility] Patient encounter status [place] [facility] Patient encounter status Carlo Aragon [facility].; [facility] Patient encounter status Soumya Garces [facility].; [facility] Procedures Date Procedure Procedure Detail Performing Clinician Start: 02-02-2025 End: 02-02-2025 Most Recent Cardio Report Yfn fortune PA-C Work Phone: Start: 05-17-2024 PSA screening YFN SKINNER Comment on above: Performed By: #### [id number] #### [facility],[address] [place] [address] Start: 05-10-2024 End: 05-18-2024 TTE w or wo fol wcon,Doppler Yfn Carpio PA-C Work Phone: Start: 05-10-2024 End: 05-21-2024 Xtrnl ecg & 48 hr record scan stor w/r&i Yfn Carpio PA-C Work Phone: Start: 05-10-2024 End: 05-10-2024 Adv care pln/ no alt dcsn mkr docd or refusal Yfn Carpio PA-C Work Phone: Start: 05-10-2024 End: 05-10-2024 Depression screening Yfn Carpio PA-C Work Phone: Start: 05-10-2024 End: 05-13-2024 Ecg routine ecg w/least 12 lds w/i&r Yfn Carpio PA-C Work Phone: Start: 05-10-2024 End: 05-10-2024 Falls risk assessment documented Luke E Shirin PA-C Work Phone: Start: 05-10-2024 End: 05-10-2024 Flu immunize order/admin Luke E Hochstet ler PA-C Work Phone: Start: 05-10-2024 End: 05-10-2024 PPPS, subseq visit Luke E Shirin PA-C Work Phone: Start: 05-10-2024 End: 05-10-2024 Pt falls assess docd w/o fall/injury past year Luke E Shirin PA-C Work Phone: Start: 05-10-2024 End: 05-10-2024 Scr dep neg, no plan reqd Luke E Hochste tler PA-C Work Phone: Start: 02-11-2024 History of percutane ous transluminal coronary angioplasty DR BLU ORTA MD Start: 12-29-[address] BLU ORTA MD Start: 09-23-2023 End: 09-25-2023 Ct abdomen & pelvis w/o contrast material Luke E Shirin PA-C Work Phone: Comment on above: Clinical Indications : Hematuria, microscopic, no increased risk for urinary tract malignancy;Flank pain, kidney stone suspected Start: 05-07-2023 End: 05-07-2023 Adv care pln/ no alt dcsn mkr docd or refusal Luke E Shirin PA-C Work Phone: Start: 05-07-2023 End: 05-07-2023 Depression screening Luke E Shirin PA-C Work Phone: Start: 05-07-2023 End: 05-07-2023 Falls risk assessment documented Luke E Shirin PA-C Work Phone: Start: 05-07-2023 End: 05-07-2023 PPPS, subseq visit Luke E Shirin PA-C Work Phone: Start: 05-07-2023 End: 05-07-2023 Pt falls assess docd w/o fall/injury past year Luke E Shirin PA-C Work Phone: Start: 05-07-2023 End: 05-07-2023 Scr dep neg, no plan reqd Luke E Hochste tler PA-C Work Phone: Start: 05-06-2023 End: 05-06-2023 Lab findings surveillance Carlo Booth PN Comment on above: 95 in CMP Start: 05-06-2023 End: 05-06-2023 Lipid panel Carlo Aragon ACID STRENGTH INSPECTOR Comment on above: TC 239, HDL 44, TRI 154, LDL 165 Start: 2022 End: 2022 Adv care pln tlkd & alt dcsn maker docd Luke E Shirin PA-C Work Phone: Start: 2022 End: 2022 Depression screening Luke E Shirin PA-C Work Phone: Start: 2022 End: 2022 Falls risk assessment documented Luke E Shirin PA-C Work Phone: Start: 2022 End: 2022 Flu immunize order/admin Luke E Hochstet ler PA-C Work Phone: Start: 2022 End: 2022 PPPS, subseq visit Luke E Shirin PA-C Work Phone: Start: 2022 End: 2022 Pt falls assess docd w/o fall/injury past year Luke E Shirin PA-C Work Phone: Start: 2022 End: 2022 Scr dep neg, no plan reqd Luke E Hochste tler PA-[employer] Work Phone: Start: 04-17-2022 End: 04-17-2022 Prostate specific antigen measurement Carlo Aragon LPN Comment on above: Results:. 0.56 Start: 01-30-2022 End: 01-30-2022 Punch biopsy skin single lesion Yfn Carpio PA-C Work Phone: Start: 01-30-2022 End: 01-30-2022 Destruction premalignant lesion 1st Yfn Carpio PA-[employer] Work Phone: Start: 06-14-2020 End: 06-14-2020 Depression screening Iesha Peña MD Work Phone: Start: 06-14-2020 End: 06-14-2020 Falls risk assessment documented Iesha Peña MD Work Phone: Start: 06-14-2020 End: 06-14-2020 PPPS, subseq visit Iesha Peña MD Work Phone: Start: 06-14-2020 End: 06-14-2020 Pt falls assess docd w/o fall/injury past year Iesha Peña MD Work Phone: Start: 06-14-2020 End: 06-14-2020 Scr dep neg, no plan reqd Iesha Peña MD Work Phone: Start: 06-03-2019 End: 06-03-2019 Depression screening Iesha Peña MD Work Phone: Start: 06-03-2019 End: 06-03-2019 Falls risk assessment documented Iesha Peña MD Work Phone: Start: 06-03-2019 End: 06-03-2019 Flu immunize order/admin Iesha Obrien Work Phone: Start: 06-03-2019 End: 06-03-2019 PPPS, subseq visit Iesha Peña MD Work Phone: Start: 06-03-2019 End: 06-03-2019 Pt falls assess docd w/o fall/injury past year Iesha Peña MD Work Phone: Start: 06-03-2019 End: 06-03-2019 Scr dep neg, no plan reqd Iesha Peña MD Work Phone: Start: 06-30-[address] BLU ORTA MD Start: 06-30-2018 Prostate biopsy johnson nails (specimen) DR BLU ORTA MD Start: 03-30-2018 Cystoscopy AUBREY CHEN POLITICAL REPORTER-WILD LIFE PHOTOGRAPHER Start: 02-26-2018 End: 02-26-2018 Screening colonoscopy Carlo Valadezenrico SCRUGGS Start: 01-28-2018 Colonoscopy AUBREY CHEN POLITICAL REPORTER-WILD LIFE PHOTOGRAPHER Start: 10-10-2017 End: 10-10-2017 Body mass index documented Iesha Peña MD Work Phone: Start: 10-03-2017 End: 10-03-2017 Heart Cath Carlo Aragon ACID STRENGTH INSPECTOR Start: 10-03-2017 History of placement of stent for coronary artery disease History of coronary artery stent placement Dr. Iesha Peña MD Work Phone: Comment on above: MINA-RCA 3.5 X 28 MM Taxus 02/25/2006 MINA-Mid CX 2.5 x 13 mm and 2.58 mm Cypher 03/10/2006; OUT-BWN-Omjanj RCA w/ 3.0 x 38 Promus Synergy stent 10/03/2017 Start: 09-28-2017 Placement of stent SREEDHAR VALLEJO POLITICAL REPORTER-WILD LIFE PHOTOGRAPHER Comment on above: CORONARY Start: 08-11-2017 End: 08-11-2017 Body mass index documented Iesha Peañ MD Work Phone: Start: 08-11-2017 End: 08-11-2017 Depression screen annual Iseha Obrien Work Phone: Start: 08-11-2017 End: 08-11-2017 Falls risk assessment documented Iesha Peña MD Work Phone: Start: 06-30-[address] BLU ORTA MD Start: 06-30-2017 End: 06-30-2017 Operation on prostate Carlo Aragon ACID STRENGTH INSPECTOR Comment on above: Isaias Start: 06-30-[address] BLU ORTA MD Start: 02-01-2016 End: 02-05-2016 Arthrocentesis aspir&/inj interm jt/burs w/o us Iesha Peña MD Work Phone: Start: 02-09-2015 End: 02-09-2015 Triamcinolone acet inj NOS Iesha Peña MD Work Phone: Start: 08-03-2014 End: 08-29-2015 Radex cplx motion bdy sctj oth/thn urograpy uni Galina RAY-C Work Phone: Comment on above: Enlarged hilum noted on x-ray from 04/2014 - repeat recommended. Start: 05-27-2014 End: 05-27-2014 Chest x-ray Galina RAY- Lito Work Phone: Start: 03-10-2006 Placement of stent BENJ GURMEET GUERINAN POLITICAL REPORTER-WILD LIFE PHOTOGRAPHER Comment on above: X 3 Start: 06-30-[address] BLU ORTA MD Start: 06-30-2005 Stented coronary art pedro (finding) DR BLU ORTA MD Start: 06-30-1971 Appendectomy AUBREY Booth GUSTAVO POLITICAL REPORTER-WILD LIFE PHOTOGRAPHER Appendectomy Carlobetsy Aragon LP N Appendectomy Carlo Aragon LP N H/O: surgery History of prost ate surgery Dr. Iesha Peña MD Work Phone: History of appendectomy History of appendectomy Dr. Iesha Peña MD Work Phone: Comment on above: 1971 Operation on prostate Mindy Phan RN Comment on above: Isaias Plan of Treatment Date Care Activity Detail Author Start: 05-05-2025 Patient encounter procedure Medical; PHYSICAL - AWV. will have labs done at hospital prior [employer] Start: 05-May-2025 15:30-05:00 JANNA Carpio Appointment Request [employer]. Start: 11-29-2024 Culture bacterial quanttative colony count urine Urine Culture ([id number]) Start: 29-Nov-2024 20:42-04:00 Request [employer] Start: 11-29-2024 Urnls dip stick/tablet rgnt auto w/o microscopy Urinalysis, Automated w/o micro (in house)* ([id number]) Start: 29-Nov-2024 20:42-04:00 Request [employer] Start: 11-29-2024 End: 11-30-2024 Myocardial spect multiple studies [employer]. Start: 07-15-2024 Lipid panel LIPID PANEL ([id number]) Start: 15-Jul-2024 Request [employer] Start: 05-10-2024 TTE w or wo fol wcon,Doppler Echocardiogram, Complete with contrast per protocol if indicated ADULT ([id number]) Date: 10-May-2024 [employer] Start: 05-10-2024 Patient encounter procedure Medical; PHYSICAL - AWV. will have labs done at [facility] [employer] Start: 10-May-2024 15:50-05:00 JANNA Carpio Appointment Request [employer] Start: 05-10-2024 Ecg routine ecg w/least 12 lds w/i&r ELECTROCARDIOGRAM WITH INTERPRETATION ([id number]) Start: 10-May-2024 Intent [employer] Start: 05-10-2024 End: 05-11-2024 Xtrnl ecg & 48 hr record scan stor w/r&i [employer]. Start: 03-03-2024 Assay of prostate specific antigen total PSA TOTAL (PROSTATE SPECIFIC ANTIGEN) ([id number]) Start: 03-Mar-2024 Request [employer] Start: 03-03-2024 Comprehensive metabolic panel CMP w/ GFR* ([id number]) Start: 03-Mar-2024 Request [employer] Start: 03-03-2024 Lipid panel LIPID PANEL ([id number]) Start: 03-Mar-2024 Request [employer] Start: 09-23-2023 Ct abdomen & pelvis w/o contrast material Abdomen/Pelvis CT W/O Contrast ([id number])(ACR 7 )(DSN [id number])(G-Code G1004(ME)) Start: 23-Sep-2023 Intent Comments: Clinical Indications: Hematuria, microscopic, no increased risk for urinary tract malignancy;Flank pain, kidney stone suspected [employer] Comment on above: Clinical Indications: Hematuria, microsc opic, no increased risk for urinary tract malignancy;Flank pain, kidney stone suspected Start: 09-18-2023 Culture bacterial quanttative colony count urine Urine Culture ([id number]) Start: 18-Sep-2023 13:24-04:00 Request [employer] [employer]. Start: 06-14-2020 Provider Instructions for Treatment Patient Instructions Indication: Coronary artery disease Start: 14-Jun-2020 Instruction Type: Provider Instructions for Treatment [employer] Stress echocardiography [facility] Immunizations Immunization Date Immunization Notes Care Provider Jesus galvin 05-10-2024 influenza, injectabl e, quadrivalent, preservative free Yfn [employer] Work Phone: [employer]; [employer]. Comment on above: Site: Right ArmVIS G iven: * Influenza (Flu) Vaccine (Inactivated or Recombinant) (02/02/21) 05-10-2024 influenza virus vaccine, unspecified formulation Yfn Carpio PA-C Work Phone: [employer]. 05-07-2023 Pneumococcal conjuga te, 20 valent (PCV20) Yfn RAY-C Work Phone: [employer]; [employer]. Comment on above: Site: Left ArmVIS Gi brii: * Pneumococcal Conjugate Vaccine (11/08/22) 05-07-2023 influenza virus vaccine, unspecified formulation DR BLU ORTA MD [facility] 05-07-2023 influenza, injectabl e, quadrivalent, preservative free Luke Shirin PA-C [facility] Phone[facility]; [employer] [facility]. Comment on above: Site: Right ArmVIS G iven: * Influenza (Flu) Vaccine (Inactivated or Recombinant) (02/02/21) 05-07-2023 pneumococcal 20-joyce nt conjugate vaccine DR BLU ORTA MD [facility] 05-07-2023 pneumococcal Conjuga te, unspecified formulation Luke Shirin PA-C Work Phone: [facility]; [employer] 2022 influenza, injectabl e, quadrivalent, contains preservative Luke Shirin PA-C Work Phone: [employer] [facility]; [employer]. Comment on above: Site: Left DeltoidVI S Given: * Influenza Inactivated (02/02/21) 2022 influenza virus vaccine, unspecified formulation; Translations: [influenza virus vaccine, inactivated] Luke Shirin PA-C Work Phone: [employer]; [employer] [facility] 05-30-2020 influenza virus vaccine, unspecified formulation DR BLU ORTA MD [facility] 05-30-2020 influenza, high dose seasonal, preservative-free Luke Shirin PA-C Work Phone: [employer] [facility]; [employer] [facility]. 05-15-[address] Iesha Peña MD Work Phone: [facility] 05-09-2020 influenza virus vaccine, unspecified formulation DR BLU ORTA MD [facility] 06-03-2019 influenza, injectabl e, quadrivalent, contains preservative Luke Shirin PA-C Work Phone: [employer]; [employer] Comment on above: Site: Left ArmVIS Gi brii: * Influenza - Inactivated (02/03/15) 06-03-2019 diphtheria, tetanus toxoids and acellular pertussis vaccine, unspecified formulation Luke Shirin PA-C Work Phone: [employer]; [employer] 06-03-2019 influenza virus vaccine, unspecified formulation; Translations: [influenza virus vaccine, inactivated] Luke Shirin PA-C Work Phone: [employer]; [employer] 06-03-2019 Shingrix 50 MCG/0.5M L Intramuscular Suspension Reconstituted Luke Shirin PA-C Work Phone: [employer]; [employer] Comment on above: Repeat in 2-6 months 04-13-2018 influenza, injectabl e, quadrivalent, contains preservative Luke Shirin PA-C Work Phone: [employer]; [employer] Comment on above: Site: Left DeltoidVI S Given: * Influenza - Inactivated (02/03/15) 04-13-2018 pneumococcal polysaccharide vaccine, 23 valent Luke Shirin PA-C Work Phone: [employer]; [employer] Comment on above: Site: Right DeltoidV IS Given: * Pneumococcal Polysaccharide (PPSV23) (10/21/14) 04-13-2018 influenza virus vaccine, unspecified formulation DR BLU ORTA MD [facility] 05-27-2014 pneumococcal conjuga te vaccine, 13 valent Luke Shirin PA-C Work Phone: [employer]; [employer] Comment on above: Site: Deltoid (Left) VIS Given: * Pneumococcal Conjugate (PCV13) (08/26/12) Payers Date Payer Category Payer Medicare [id number] 2024 Medicare [id number] 2024 Self-pay [address] [facility] [id number] 2023 Private Health Insurance W [id number] 2023 Medicare [id number] 2023 Private Health Insurance w [id number] 1945 Unknown [id number] 2.16.8 40.1.770236.3.579.2.62 1945 Unknown [id number] 2.16.8 40.1.717432.3.579.2.627 1945 Unknown [id number] 2.16.8 40.1.202294.3.579.2.62 1945 Unknown [id number] 2.16.8 40.1.061549.3.579.2.627 1945 Unknown [id number] 2.16.8 40.1.229693.3.579.2.627 1945 Unknown [id number] 2.16.8 40.1.722410.3.579.2.627 1945 Unknown [id number] 2.16.8 40.1.334217.3.579.2.627 1945 Unknown [id number] 2.16.8 40.1.118934.3.579.2.627 1945 Unknown [id number] 2.16.8 40.1.934930.3.579.2.627 1945 Unknown [id number] 2.16.8 40.1.043881.3.579.2.627 1945 Unknown [id number] 2.16.8 40.1.692424.3.579.2.627 1945 Unknown [id number] 2.16.8 40.1.719409.3.579.2.651 1945 Unknown [id number] 2.16.8 40.1.209484.3.579.2.651 1945 Unknown [id number] 2.16.8 40.1.380862.3.579.2.651 1945 Unknown [id number] 2.16.8 40.1.801633.3.579.2.651 Unknown Unknown [id number] 2.16.8 40.1.033773.3.579.2.462 Unknown [id number] 2.16.8 40.1.074192.3.579.2.462 Unknown [id number] 2.16.8 40.1.187499.3.579.2.462 Unknown [id number] 2.16.8 40.1.899010.3.579.2.462 Social History Date Type Detail Facility Caffeine Use Caffeine Use [facility] [employer]. 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 [employer]; [employer] Tobacco Use: Tobacco Use: ; N ever smoker. [facility]; [employer] Start: 1945 Male [facility] Self-employed [facility]; [employer] Work Phone: Start: 10-23-2023 End: 02-05-2024 Never smoked tobacco [facility] Sexual O[facility] Start: 02-22-2020 Sex Male (finding) [facility] Start: 05-15-2020 Alcohol Alcohol [facility] Start: 05-15-2020 Lives Lives [facility] Start: 09-04-2020 Tobacco Use Tobacco Use [facility] Functional Status Date Assessment Result Facility 02-11-2024 Functional Status ice chips and sips take n [facility] 02-11-2024 Functional Status [facility] [place] [facility] 01-28-2024 Functional Status Sensory Deficits None A [facility] Mental Status Date Assessment Result Facility 02-11-2024 Mental Status Oriented x 4 [facility] Clinical Notes 11-25-2023 to 02-11-2024 LaboratoryLaboratoryRadiologyLaboratoryLaboratoryLaboratoryLaboratoryLaboratory Note Date & Type Note Facility 02-11-2024 Hospital Discharge instructions Patient Education 02/11/2024 17:27:15 1-SDS URO Cystoscopy w/ Bladder Biopsy (03/2022)(CUSTOM) CYSTOSCOPY WITH BLADDER BIOPSY CYSTOSCOPY WITH BLADDER BIOPSY: The bladder is filled with water to examine and a sample of tissue will be taken to be evaluated. The area will be cauterized. This procedure may be done as a diagnostic procedure. SURGICAL TREATMENT: Surgery: Outpatient- surgery length of time approximately 30 minutes, no skin incisions (surgery is done within the bladder with a scope). Surgical prep: Nothing to eat or drink after midnight (night before surgery). Surgery will call the day before surgery to go over arrival time, surgery time, restrictions, and medications. No bowel prep. Medications to hold: Blood thinners, Aspirin, vitamins, and supplements (unless instructed otherwise). POST OPERATIVE CARE: No surgical dressing. Typically, there is no Fan catheter after the procedure. If discharged home with Fan catheter, make sure you are cleaning around the insertion site with warm soap and water. You will use the leg bag (smaller bag) during the day and the night bag (large bag) at night. Remember to keep bag lower than the bladder. Keep Fan catheter secure device on to prevent tension. ACTIVITY: No lifting more than 10-15 pounds for 2 weeks. No work for typically 1-2 days. May resume driving 1-2 days and off pain medication. May ride in the car the next day. May shower. Medications: May be discharged with pain medication. What to expect: Common symptoms after surgery. Blood in urine. Frequency and/or urgency. Burning with urination. When to call office: Elevated temperature of 101 or higher. If Fan catheter in place: bloody urine that is thick, similar to tomato juice or clots or Fan catheter that is blocked/clogged due to clots and not draining into catheter bag. Unable to urinate or trouble urinating. FOLLOW UP: Office will call to schedule post-operative appointment to discuss pathology. If you have a Fan catheter in place, you may return sooner to the office to have the Fan catheter removed. Follow Up Care 01/20/2024 12:13:02 With:BLU ORTA MD, [facility], Urology [facility] Address: [address] [place] [phone] When: Unknown [facility] 02-11-2024 Summary of episode note Discharge Instructions Thank you for allowing [facility] to assist you with your healthcare needs. The following is important discharge information regarding your hospital visit. 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 Prostate nodule, right side; s/p 12 core TRUS bx by TRC March 2018 when PSA 1.5 Stented coronary artery What to do next Scheduled Follow-Up Appointments Appointment Type When With Where Contact Information StatusURO OV Post Op 02/27/2024 02:10 PM EDT BLU ORTA MD [facility] Confirmed Follow Up Appointments Follow Up with BLU ORTA MD, [facility], Urology Service Where:[address] [place] [phone] The Following Activity and Diet Have Been Ordered for You Discharge Activity - Ordered -- Lifting Restricted less than 10 pounds, for 10 days, 02/11/24 17:20:00 EDT Discharge Diet - Ordered -- No changes were made to your diet during your hospital stay. Please resume your pre hospitalization diet on discharge., 02/11/24 17:20:00 EDT Allergies penicillin (Mild) Rash Medications Please ask your primary doctor or pharmacist before taking any other medication not listed, including over the counter drugs, herbal medications, vitamins and or supplements as they may interact with your home medications. What How Much When Why Instructions Last Dose Unchanged aspirin (aspirin 81 mg oral delayed release tablet) 1 tab(s) by mouth Once a day (in the morning) Unchanged atorvastatin (atorvastatin 40 mg oral tablet) 1 tab(s) by mouth Daily at bedtime Unchanged cetirizine (Zyrtec 10 mg oral tablet) 1 tab(s) by mouth Once a day as needed for as needed for allergy symptoms Unchanged tamsulosin (Flomax 0.4 mg oral capsule) 1 cap by mouth Daily at bedtime BPH (benign prostatic hyperplasia) Please take this list to your next doctor s visit. Bring all medications you take, including over the counter medications, herbals and other supplements with you to your doctor s visit. Patients and families are reminded to discard old lists and to update any records with all medication providers or retail pharmacies. Education Materials CYSTOSCOPY WITH BLADDER BIOPSY CYSTOSCOPY WITH BLADDER BIOPSY: The bladder is filled with water to examine and a sample of tissue will be taken to be evaluated. The area will be cauterized. This procedure may be done as a diagnostic procedure. SURGICAL TREATMENT: Surgery: Outpatient- surgery length of time approximately 30 minutes, no skin incisions (surgery is done within the bladder with a scope). Surgical prep: Nothing to eat or drink after midnight (night before surgery). Surgery will call the day before surgery to go over arrival time, surgery time, restrictions, and medications. No bowel prep. Medications to hold: Blood thinners, Aspirin, vitamins, and supplements (unless instructed otherwise). POST OPERATIVE CARE: No surgical dressing. Typically, there is no Fan catheter after the procedure. If discharged home with Fan catheter, make sure you are cleaning around the insertion site with warm soap and water. You will use the leg bag (smaller bag) during the day and the night bag (large bag) at night. Remember to keep bag lower than the bladder. Keep Fan catheter secure device on to prevent tension. ACTIVITY: No lifting more than 10-15 pounds for 2 weeks. No work for typically 1-2 days. May resume driving 1-2 days and off pain medication. May ride in the car the next day. May shower. Medications: May be discharged with pain medication. What to expect: Common symptoms after surgery. Blood in urine. Frequency and/or urgency. Burning with urination. When to call office: Elevated temperature of 101 or higher. If Fan catheter in place: bloody urine that is thick, similar to tomato juice or clots or Fan catheter that is blocked/clogged due to clots and not draining into catheter bag. Unable to urinate or trouble urinating. FOLLOW UP: Office will call to schedule post-operative appointment to discuss pathology. If you have a Fan catheter in place, you may return sooner to the office to have the Fan catheter removed. Additional Information VACCINATE! IT SAVES LIVES! Members of the community who have not yet received the COVID-19 vaccine and would like to receive it can visit one of [facility] vaccine clinics. There are many vaccine clinic locations within the [facility]. For locations and available times, please visit [email or web address].[place] .[email or web address] It is important to note that some COVID mobile vaccine clinics are held outdoors and may be canceled in rainy or stormy conditions. To learn more about pediatric vaccinations (ages 5-11), we invite you to visit the [employer] webpage. [email or web address]/page [email or web address]-[email or web address] -[email or web address]-Questions.html To learn more about the COVID-19 vaccine, we invite you to visit the CDC website for a list of frequently asked questions.https://www.cdc.gov/coron avirus/2019-ncov/vaccines/faq.html [facility] Patient Portal Access Instructions: Stay connected with your healthcare team and access your personal medical information anytime with the [facility] Patient Portal. Please follow the directions below to create your [facility] account: 1.Access the email account you provided upon registration to the hospital/physician office.2.Look for an invitation email from [facility].3.Open the email and access the invitation link: Accept Invitation to [facility].4.Fill in the required reynaga to create your account. To access your account, visit [email or web address]. Click the blue button labeled Access Patient Portal and then log in with the username and password that you created in the steps above. You will be able to view your test results, lab results, a summary of your visits, upcoming appointments and more. There is also a convenient messaging option where you can send secure messages to your provider. In addition, you will have the ability to download any documents or summaries to your computer and/or send the information securely to a physician. Remember that your healthcare information is confidential, so carefully consider who you will allow to register on the [facility] for access to your information. You can also access the [facility] Patient Portal on the [facility] kareem. Simply click on Patient Portal and then log into your account. If you would like to receive a full copy of your medical records, please contact the [facility] Medical Records Department by calling [phone], Friday through Friday between 8 a.m. and 4:30 p.m. HOW TO SAFELY DISPOSE OF PRESCRIPTION MEDICATIONS Please use one of the following methods to safely dispose of your unused medications. 1.Use a drug disposal kit: the drug disposal pouch allows you to safely discard your old and unused drugs. Ask your nurse to give you one when you are discharged.2.Visit a local take-back location: Many local pharmacies and police departments have programs that collect old and unwanted prescription drugs. Call your local pharmacy or go to http://1234ENTER/1P8Jq9t to find one close to you.3.Make use of household items: Use cat litter or old coffee grounds to dispose medications if other options are not available. Mix your drugs with these household products, seal them in an airtight container and throw it into the garbage. Call [facility]: [phone] to be sure your drugs can be disposed of in this way. Some medicines may require a different approach.4.Never flush your medications down the toilet. IF YOU HAVE BEEN PRESCRIBED AN OPIOID FOR PAIN If you have been prescribed an opioid (such as hydrocodone, oxycodone or morphine), it is critical to understand the possible side effects and risks of opioid pain medications. Even when taken as directed, opioids can have several side effects including: Tolerance, meaning you might need to take more of a medication for the same pain relief. Nausea, vomiting and/or constipation. Sleepiness, dizziness, dry mouth, confusion, depression or itching. Physical dependence, meaning you have withdrawal symptoms when a medication is stopped, can develop within a few days. KNOW YOUR RESPONSIBILITIES It is important to know exactly how much and how often to take the opioid pain medications you are prescribed. Never take opioids in higher amounts or more often than prescribed. Do not combine opioids with alcohol or other drugs that cause drowsiness, such as benzodiazepines, also known as benzos, including diazepam and alprazolam, muscle relaxants or sleep aids. Never sell or share prescription opioids. This is illegal. Store opioids in a secure place and out of reach of others (including children, family, friends and visitors). The last page of this document has been signed and retained as a CHART COPY. Signatures Patient Education Materials 1-SDS URO Cystoscopy w/ Bladder Biopsy (03/2022)(CUSTOM) Medication Leaflets My discharge plan and instructions have been reviewed and explained to me and I,NACHO FRAZIER JR understand my current condition and have read and understand these discharge instructions. I have received a written copy of the plan/instructions. If I have questions, I am aware that I should contact my doctor. Patient/Career Services Manager Signature: ____ Date/Time: Relationship to Patient: __ Witness Name/Signature: Date/Time: [facility] 02-11-2024 Anesthesiology Consult note Patient: NACHO FRAZIER JR Age: 78 years Sex: Male : 1945 Associated Diagnoses: None Author: SRAVANI ZAPIEN MD Postoperative Information Post Operative Info: Post op day: Post Anesthesia Care Unit. Patient location: PACU. Assessment Postanesthesia assessment Vitals: Vital signs from flowsheet : Vital Signs 02/11/2024 17:05 EDT Temperature Temporal Artery 36 DegC Heart Rate Monitored 77 bpm Respiratory Rate 16 br/min Systolic Blood Pressure Non-Invasive 139 mmHg Diastolic Blood Pressure Non-Invasive 85 mmHg Mean Arterial Pressure (NBP) 99 mmHg 02/11/2024 16:50 EDT Heart Rate Monitored 76 bpm Respiratory Rate 16 br/min Systolic Blood Pressure Non-Invasive 148 mmHg HI Diastolic Blood Pressure Non-Invasive 84 mmHg Mean Arterial Pressure (NBP) 105 mmHg 02/11/2024 16:34 EDT Temperature Temporal Artery 36.4 DegC Heart Rate Monitored 72 bpm Respiratory Rate 16 br/min Systolic Blood Pressure Non-Invasive 139 mmHg Diastolic Blood Pressure Non-Invasive 87 mmHg Mean Arterial Pressure (NBP) 102 mmHg 02/11/2024 16:27 EDT Systolic Blood Pressure Non-Invasive 101 mmHg mmHg Diastolic Blood Pressure Non-Invasive 68 mmHg mmHg 02/11/2024 16:25 EDT Temperature (Route Not Specified) 36.06 DegC DegC Heart Rate Monitored 64 bpm bpm Respiratory Rate - Anes 7 br/min br/min 02/11/2024 16:24 EDT Systolic Blood Pressure Non-Invasive 90 mmHg mmHg Diastolic Blood Pressure Non-Invasive 60 mmHg mmHg 02/11/2024 16:21 EDT Systolic Blood Pressure Non-Invasive 102 mmHg mmHg Diastolic Blood Pressure Non-Invasive 67 mmHg mmHg 02/11/2024 16:20 EDT Temperature (Route Not Specified) 36.15 DegC DegC Heart Rate Monitored 67 bpm bpm Respiratory Rate - Anes 11 br/min br/min 02/11/2024 16:18 EDT Systolic Blood Pressure Non-Invasive 117 mmHg mmHg Diastolic Blood Pressure Non-Invasive 86 mmHg mmHg 02/11/2024 16:15 EDT Temperature (Route Not Specified) 36.22 DegC DegC Heart Rate Monitored 74 bpm bpm Respiratory Rate - Anes 12 br/min br/min Systolic Blood Pressure Non-Invasive 95 mmHg mmHg Diastolic Blood Pressure Non-Invasive 69 mmHg mmHg 02/11/2024 16:12 EDT Systolic Blood Pressure Non-Invasive 91 mmHg mmHg Diastolic Blood Pressure Non-Invasive 61 mmHg mmHg 02/11/2024 16:10 EDT Heart Rate Monitored 82 bpm bpm Respiratory Rate - Anes 26 br/min br/min 02/11/2024 16:09 EDT Systolic Blood Pressure Non-Invasive 106 mmHg mmHg Diastolic Blood Pressure Non-Invasive 71 mmHg mmHg 02/11/2024 16:06 EDT Systolic Blood Pressure Non-Invasive 120 mmHg mmHg Diastolic Blood Pressure Non-Invasive 76 mmHg mmHg 02/11/2024 16:05 EDT Heart Rate Monitored 80 bpm bpm Respiratory Rate - Anes 0 br/min br/min 02/11/2024 16:03 EDT Systolic Blood Pressure Non-Invasive 164 mmHg mmHg Diastolic Blood Pressure Non-Invasive 91 mmHg mmHg 02/11/2024 13:34 EDT Temperature Temporal Artery 36.2 DegC Peripheral Pulse Rate 68 bpm Respiratory Rate 16 br/min Systolic Blood Pressure Non-Invasive 137 mmHg Diastolic Blood Pressure Non-Invasive 78 mmHg , Oxygen Therapy : Oxygen Therapy & Oxygenation Information 02/11/2024 17:05 EDT Oxygen Therapy Room air Oxygen Saturation 97 % 02/11/2024 16:50 EDT Oxygen Therapy Room air Oxygen Saturation 97 % 02/11/2024 16:48 EDT Oxygen Therapy Room air Oxygen Saturation 97 % 02/11/2024 16:38 EDT Oxygen Therapy Blow by Oxygen Saturation 99 % Oxygen Flow Rate 8 02/11/2024 16:34 EDT Oxygen Therapy Simple mask Oxygen Saturation 99 % Oxygen Flow Rate 8 02/11/2024 16:25 EDT Oxygen Saturation 99 % % 02/11/2024 16:20 EDT Oxygen Saturation 99 % % 02/11/2024 16:15 EDT Oxygen Saturation 99 % % 02/11/2024 16:10 EDT Oxygen Saturation 99 % % 02/11/2024 16:05 EDT Oxygen Saturation 100 % % 02/11/2024 13:34 EDT Oxygen Therapy Room air Oxygen Saturation 98 % . Mental status: at preoperative baseline. Respiratory function: respirations are non-labored, Stable. Respiratory support: none. CV function: Stable. Cardiovascular support: none. Pain: Satisfactory. Nausea status: Satisfactory. Postoperative hydration status: within normal limits. Notes: Patient is sufficiently recovered from anesthesia to participate in the evaluation. No follow-up care needed. No complications post-anesthesia.. Digitally Signed by SRAVANI ZAPIEN MD on 02/11/2024 05:19 PM [facility] 02-11-2024 Note ORIGINAL EXAMINATION: SPOT FLUOROSCOPIC IMAGES02/11/2024 4:31 pm COMPARISON: None. HISTORY: ORDERING SYSTEM PROVIDED HISTORY: Reason for Exam: BLADDER TUMOR FLUOROSCOPY DOSE AND TYPE: Radiation Exposure Index: Kerma mGy, 3 FINDINGS: Intraoperative fluoroscopy utilized for bladder tumor. Images demonstrate opacification of the urinary bladder with voiding. Mild trabeculations are noted. IMPRESSION: Please see procedure note for further detail. Interpreted by: Davi Ibarra DO Preliminary Report By: Davi Ibarra DO Electronically signed By Davi Ibarra DO Dictated Date: 02/11/2024 4:48:28 PM Prelim Date: 02/11/2024 4:49:17 PM Sign Date: 02/11/2024 4:49:17 PM Ordering Provider: [facility] 02-11-2024 Anesthesiology Consult note Patient: NACHO FRAZIER JR Age: 78 years Sex: Male : 1945 Associated Diagnoses: None Author: SRAVANI ZAPIEN MD Preoperative Information NPO > 8 hours Anesthesia history Patient's history: negative. Health Status Allergies: Allergic Reactions (Selected) Mild Penicillin- Rash., Allergies (1) ActiveSeverityReaction penicillinMildRash Current medications: (Selected) Inpatient Medications Ordered Cipro I.V.: Start: 02/11/24 5:00:00 EDT, Dose = 400 mg, = 200 mL, IV Piggyback, PREOP pharm, Rate: 200 mL/hr, Infuse over: 1 hour(s), 0, 02/11/24 5:00:00 EDT LR 1,000 mL: Start: 02/11/24 5:00:00 EDT, Rate: 75 mL/hr, 02/11/24 5:00:00 EDT lidocaine 1% preservative-free injectable solution: Start: 02/11/24 5:00:00 EDT, Dose = 2.5 mg, = 0.25 mL, Intradermal, prep pharm, 0, 02/11/24 5:00:00 EDT Prescriptions Prescribed Flomax 0.4 mg oral capsule: Dose : 0.4 mg = 1 cap(s), Oral, qHS, # 90 cap(s), 3 Refill(s), Pharmacy: [facility], BPH (benign prostatic hyperplasia), 167.6, cm, 11/25/23 15:06:00 EDT, Height, kg, 11/25/23 15:06:00 EDT, Dosing Weight Documented Medications Documented Zyrtec 10 mg oral tablet: Dose : 10 mg = 1 tab(s), Oral, qDay, PRN as needed for allergy symptoms, # 10 tab(s), 0 Refill(s) aspirin 81 mg oral delayed release tablet: Dose : 81 mg = 1 tab(s), Oral, qAM, 0 Refill(s) atorvastatin 40 mg oral tablet: Dose : 40 mg = 1 tab(s), Oral, qHS, 0 Refill(s), Medications (3) Active Scheduled: (2) ciprofloxacin PMX 400 mg 200 mL, IV Piggyback, PREOP pharm lidocaine 1% (MPF) 2 mL vial pf 2.5 mg 0.25 mL, Intradermal, prep pharm Continuous: (1) Lactated Ringers 1,000 mL 1,000 mL, Intravenous, 75 mL/hr PRN: (0) Problem list: Medical Coronary artery disease / SNOMED CT 1232856706 / Confirmed Bladder diverticulum; 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 / SNOMED CT 1008480719 / Confirmed Dysuria / SNOMED CT 58656179 / Confirmed Glasses / SNOMED CT 4633286985 / Confirmed Cystitis with hematuria / SNOMED CT 436139808 / Confirmed High blood pressure / SNOMED CT 81284014 / Confirmed History of COVID-19 / SNOMED CT 9714807296 / Confirmed Hypercholesterolemia / SNOMED CT 94261746 / Confirmed PAF - Paroxysmal atrial fibrillation / SNOMED CT 589736876 / Confirmed Prostate nodule, right side; s/p 12 core TRUS bx by TR March 2018 when PSA 1.5 / SNOMED CT 5405945132 / Confirmed Spermatocele; right by scrotal US October 2023 / SNOMED CT 10761450 / Confirmed Stented coronary artery / SNOMED CT 8952711053 / Confirmed Athlete's foot on right / SNOMED CT 09960615 / Confirmed Resolved: Bronchitis, chronic / SNOMED CT 048730670 Resolved: Pulmonary embolism / SNOMED CT 37348128, Active Problems (20) Arthritis Athlete's foot on right Bladder diverticulum; 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 BPH (benign prostatic hyperplasia); s/p 23g BiTURP May 2018 Coronary artery disease Cystitis with hematuria Dysuria Glasses Heartburn Hernia, umbilical High blood pressure History of COVID-19 History of heart artery stent Hypercholesterolemia Incomplete bladder emptying PAF - Paroxysmal atrial fibrillation Prostate nodule, right side; s/p 12 core TRUS bx by TR March 2018 when PSA 1.5 Seasonal allergy Spermatocele; right by scrotal US October 2023 Stented coronary artery Histories Past Medical History: Active Coronary artery disease (0133128672) High blood pressure (70673474) Hypercholesterolemia (16375020) Cystitis with hematuria (075339982) Glasses (5234604622) Athlete's foot on right (96623468) PAF - Paroxysmal atrial fibrillation (105860538) Comments: 01/29/2024 EDT 16:20 EDT - 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 Pulmonary embolism (67125211): Resolved. 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 Cystoscopy (985663333) in 2019 at 73 Years. Prostate biopsy specimen (6920093324) in 2019 at 73 Years. Cardiac catheterization (60854294) in 2018 at 72 Years. TURP - Transurethral resection of prostate (567231989) in 2018 at 72 Years. Cystoscopy (06170118) in the month of 03/2018 at 72 Years. Colonoscopy (068927559) in the month of 01/2018 at 72 Years. Stent placement (508290735) in the month of 09/2017 at 72 Years. Comments: 03/26/2018 15:12 FANTASMAT EVANGELISTA Maldonado CORONARY Stented coronary artery (0023016559) in 2005 at 61 Years. Cardiac catheterization (35180722) in 2005 at 61 Years. Stent placement (852880997) on 03/10/2006 at 60 Years. Comments: 03/26/2018 15:13 EDT - EVANGELISTA Ghotra X 3 Appendectomy (706860880) in 1972 at 27 Years. Social History: Social & Psychosocial Habits Alcohol 02/11/2024isk Assessment: Low Risk 02/11/2024 Use: Past Substance Abuse 02/11/2024isk Assessment: Denies Substance Abuse 02/11/2024 Use: Never Tobacco 02/11/2024 Assessment: Denies Tobacco Use 02/11/2024 Tobacco Use: Never (less than 100 in l Home/Environment 02/11/2024 Living situation: Home/Independent Financial concerns: No Domestic Concerns None Lives In 1st floor bathroom, 1st floor bedroom, Multilevel home Current Home Treatments None Special Services and Community Resources None Marital Status of Patient if Patient Independent Adult: Sexual 02/11/2024 Assessment: No Risk Physical Examination Vital Signs (last 24 hrs) Last Charted Temp Uypxawyr45.2 DegC (FEB 10 13:34) FVO808 mmHg (FEB 10 13:34) DBP78 mmHg (FEB 10 13:34) Measurements from flowsheet : Measurements 02/11/2024 13:34 EDT Height 167.6 cm Height in inches 66 inch(es) Admission Weight 83.5 kg Weight Lbs 183.7 lb Weight Method Actual [place] Body Weight 63.76 kg Type of Scale Used Bed scale Admission Body Mass Index 29.73 m2 General: Alert and oriented. Airway: Mallampati classification: II (soft palate, fauces, uvula visible). Dentition Evaluation: Intact. Respiratory: Lungs are clear to auscultation, Respirations are non-labored. Cardiovascular: Normal rate, Regular rhythm. Heart Sounds: Normal. Neurologic: Alert, Oriented. Review / Management Results review: No qualifying data available . Documentation reviewed: Current records. Assessment and Plan [place] [employer]esthesi[employer] (ASA) physical status classification: Class III. Anesthetic Preoperative Plan Premedication: intravenous. Anesthetic technique: General. Induction: intravenously. Maintenance airway: Laryngeal mask airway. Postoperative pain management: Per surgeon. Informed consent: signed by patient. Notes: CAD. Digitally Signed by SRAVANI ZAPIEN MD on 02/11/2024 03:25 PM [facility] 11-27-2023 Note . MICRO - Microbiology PROCEDURE: Urine Culture [*1] SOURCE: Urine, Clean Catch BODY SITE: COLLECTED DATE/TIME: 11/25/2023 15:27 EDT RECEIVED DATE/TIME: 11/25/2023 22:14 EDT START DATE/TIME: 11/25/2023 22:14 EDT FREE TEXT SOURCE: FINAL REPORTS Final Report [] Verified Date/Time/Personnel: 11/27/2023 07:37 EDT No growth at 48 hours. PRELIMINARY REPORTS Preliminary Report [] Verified Date/Time/Personnel: 11/26/2023 08:38 EDT No growth to date Performing Locations *1: This test was performed at: [facility], [address] [place] [address], [facility] , [facility] ([place]) 11-25-2023 Evaluation + Plan note Future Scheduled TestsProstate Specific Antigen 11/25/23Urinalysis w/ C&S if Indicated 10/23/23Urine Microscopic 10/23/23Urine Culture 10/23/23 [facility] Evaluation + Plan note Future Appointments Appointment Date:11/25/2023 03:20:00 PM Scheduled Provider:AUBREY VALLEJO Location:UROLOGY Appointment Type:URO OV Future Scheduled TestsProstate Specific Antigen 10/23/23Urinalysis w/ C&S if Indicated 10/23/23Urine Microscopic 10/23/23Urine Culture 10/23/23US Scrotum Contents 10/23/23 [facility] Evaluation + Plan note Future Appointments Appointment Date:02/11/2024 05:10:00 PM Scheduled Provider: Location:Main OR Appointment Type:Surgery - [facility] Appointment Date:02/27/2024 02:10:00 PM Scheduled Provider:BLU ORTA MD Location:UROLOGY Appointment Type:URO OV Post Op Future Scheduled TestsBasic Metabolic Panel 01/20/24Prostate Specific Antigen 01/20/24Prostate Specific Antigen 11/25/23Urinalysis w/ C&S if Indicated 10/23/23Urine Microscopic 10/23/23Urine Culture 10/23/23Complete Blood Count 01/20/24 [facility] Evaluation + Plan note Future Appointments Appointment Date:02/11/2024 03:30:00 PM Scheduled Provider: Location:Main OR Appointment Type:Surgery - [facility] Appointment Date:02/27/2024 02:10:00 PM Scheduled Provider:BLU ORTA MD Location:UROLOGY Appointment Type:URO OV Post Op Future Scheduled TestsProstate Specific Antigen 11/25/23Urinalysis w/ C&S if Indicated 10/23/23Urine Microscopic 10/23/23Urine Culture 10/23/23 [facility] Evaluation + Plan note Future Appointments Appointment Date:02/27/2024 02:10:00 PM Scheduled Provider:BLU ORTA MD Location:UROLOGY Appointment Type:URO OV Post Op Future Scheduled TestsProstate Specific Antigen 11/25/23Urinalysis w/ C&S if Indicated 10/23/23Urine Microscopic 10/23/23Urine Culture 10/23/23 [facility] Evaluation + Plan note Future Appointments Appointment Date:05/31/2024 02:50:00 PM Scheduled Provider:BLU ORTA MD Location:UROLOGY Appointment Type:URO OV Future Scheduled TestsPathology Non-Certified Family Mediator Request 05/29/24Prostate Specific Antigen 11/25/23Urinalysis w/ C&S if Indicated 10/23/23Urine Microscopic 10/23/23Urine Culture 10/23/23 [facility] Evaluation + Plan note Future Appointments Appointment Date:07/04/2025 02:00:00 PM Scheduled Provider:BLU ORTA MD Location:UROLOGY Appointment Type:URO OV Future Scheduled TestsProstate Specific Antigen 11/25/23Prostate Specific Antigen 07/05/25Urinalysis w/ C&S if Indicated 10/23/23Urine Microscopic 10/23/23Urine Culture 10/23/23 [facility] Evaluation note Diagnosis Onset Date Resolution Chest pain acute February 02 1:48pm SOB (shortness of breath) acute February 02, 2025 1:48pm [facility] Work Phone: Hospital course Narrative No data available for this section [facility] Hospital Discharge instructions No data available for this section [facility] Progress note No data available for this section [facility] Reason for referral (narrative)No reason for referral information availableSanta [facility] Work Phone: Family History No Family History Records Found Cerebrovascular Accident Status:Active Comment s:Brother. Colon Cancer Status:Active Comments:2 sibli ngs Coronary Artery Disease Status:Active Comments :Father. Cerebrovascular Accident Status:Active Comment s:Brother. Colon Cancer Status:Active Comments:2 sibli ngs Coronary Artery Disease Status:Active Comments :Father. Cerebrovascular Accident Status:Active Comment s:Brother. Colon Cancer Status:Active Comments:2 sibli ngs Coronary Artery Disease Status:Active Comments :Father. Cerebrovascular Accident Status:Active Comment s:Brother. Colon Cancer Status:Active Comments:2 sibli ngs Coronary Artery Disease Status:Active Comments :Father. Cerebrovascular Accident Status:Active Comment s:Brother. Colon Cancer Status:Active Comments:2 sibli ngs Coronary Artery Disease Status:Active Comments :Father. Cerebrovascular Accident Status:Active Comment s:Brother. Colon Cancer Status:Active Comments:2 sibli ngs Coronary Artery Disease Status:Active Comments :Father. Cerebrovascular Accident Status:Active Comment s:Brother. Colon Cancer Status:Active Comments:2 sibli ngs Coronary Artery Disease Status:Active Comments :Father. Cerebrovascular Accident Status:Active Comment s:Brother. Colon Cancer Status:Active Comments:2 sibli ngs Coronary Artery Disease Status:Active Comments :Father. Cerebrovascular Accident Status:Active Comment s:Brother. Colon Cancer Status:Active Comments:2 sibli ngs Coronary Artery Disease Status:Active Comments :Father. Cerebrovascular Accident Status:Active Comment s:Brother. Colon Cancer Status:Active Comments:2 sibli ngs Coronary Artery Disease Status:Active Comments :Father. Cerebrovascular Accident Status:Active Comment s:Brother. Colon Cancer Status:Active Comments:2 sibli ngs Coronary Artery Disease Status:Active Comments :Father. Cerebrovascular Accident Status:Active Comment s:Brother. Colon Cancer Status:Active Comments:2 sibli ngs Coronary Artery Disease Status:Active Comments :Father. Cerebrovascular Accident Status:Active Comment s:Brother. Colon Cancer Status:Active Comments:2 sibli ngs Coronary Artery Disease Status:Active Comments :Father. Cerebrovascular Accident Status:Active Comment s:Brother. Colon Cancer Status:Active Comments:2 sibli ngs Coronary Artery Disease Status:Active Comments :Father. Cerebrovascular Accident Status:Active Comment s:Brother. Colon Cancer Status:Active Comments:2 sibli ngs Coronary Artery Disease Status:Active Comments :Father. Cerebrovascular Accident Status:Active Comment s:Brother. Colon Cancer Status:Active Comments:2 sibli ngs Coronary Artery Disease Status:Active Comments :Father. Cerebrovascular Accident Status:Active Comment s:Brother. Colon Cancer Status:Active Comments:2 sibli ngs Coronary Artery Disease Status:Active Comments :Father. Cerebrovascular Accident Status:Active Comment s:Brother. Colon Cancer Status:Active Comments:2 sibli ngs Coronary Artery Disease Status:Active Comments :Father. Cerebrovascular Accident Status:Active Comment s:Brother. Colon Cancer Status:Active Comments:2 sibli ngs Coronary Artery Disease Status:Active Comments :Father. Cerebrovascular Accident Status:Active Comment s:Brother. Colon Cancer Status:Active Comments:2 sibli ngs Coronary Artery Disease Status:Active Comments :Father. Cerebrovascular Accident Status:Active Comment s:Brother. Colon Cancer Status:Active Comments:2 sibli ngs Coronary Artery Disease Status:Active Comments :Father. Cerebrovascular Accident Status:Active Comment s:Brother. Colon Cancer Status:Active Comments:2 sibli ngs Coronary Artery Disease Status:Active Comments :Father. Cerebrovascular Accident Status:Active Comment s:Brother. Colon Cancer Status:Active Comments:2 sibli ngs Coronary Artery Disease Status:Active Comments :Father. Cerebrovascular Accident Status:Active Comment s:Brother. Colon Cancer Status:Active Comments:2 sibli ngs Coronary Artery Disease Status:Active Comments :Father. Cerebrovascular Accident Status:Active Comment s:Brother. Colon Cancer Status:Active Comments:2 sibli ngs Coronary Artery Disease Status:Active Comments :Father. Cerebrovascular Accident Status:Active Comment s:Brother. Colon Cancer Status:Active Comments:2 sibli ngs Coronary Artery Disease Status:Active Comments :Father. Cerebrovascular Accident Status:Active Comment s:Brother. Colon Cancer Status:Active Comments:2 sibli ngs Coronary Artery Disease Status:Active Comments :Father. Cerebrovascular Accident Status:Active Comment s:Brother. Colon Cancer Status:Active Comments:2 sibli ngs Coronary Artery Disease Status:Active Comments :Father. Cerebrovascular Accident Status:Active Comment s:Brother. Colon Cancer Status:Active Comments:2 sibli ngs Coronary Artery Disease Status:Active Comments :Father. Relationship Condition Age at Onset Recorded Date/T dom Not Specified Hypertension Unknown father Coronary artery disease Unknown Myocardial infarction Unknown brother Cardiac disease Unknown Malignant neoplasm Unknown mother Cardiac disease Unknown Cerebrovascular Accident Status:Active Comment s:Brother. Colon Cancer Status:Active Comments:2 sibli ngs Coronary Artery Disease Status:Active Comments :Father. Cerebrovascular Accident Status:Active Comment s:Brother. Colon Cancer Status:Active Comments:2 sibli ngs Coronary Artery Disease Status:Active Comments :Father. Summary Purpose Advance Directives No Advanced Directives Records Found Advance Directive Response Recorded Date/ Time Advance Directives No October 03 11:29am Chief Complaint and Reason for Visit Chief Complaint Admit Date 1 Y FU February 02, 2025 1:4 8pm Reason for Visit Admit Date Chest pain February 02, 2025 1:4 8pm SOB (shortness of breath) February 02 1:48pm Additional Source Comments Patient Care team informatio n (unrecognized section and content) Team Status: Active Member Role/Relationship Status Dates Dr. Iesha Peña MD Family Provider Active Dr. Iesha Peña MD Primary Care Provider Active Team Status: Inactive Member Role/Relationship Status Dates Dr. Iesha Peña MD Primary Care Provider Active Start: February 02, 2025 End: February 02, 2025 Dr. Iesha Peña MD Referring Provider Active S tart: February 02, 2025 End: February 02, 2025 Dr. Jay Vasquez MD Attending Provider Active Start: February 02, 2025 End: February 02, 2025 (unrecognized sect ion and content) No Status Records FoundNo Status Records FoundNo Status Records FoundNo Status Records FoundNo Status Records FoundNo Status Records FoundNo Status Records Found INFORMATION SOURCE (unrecogn ized section and content) DATE CREATED AUTHOR 03/02/2024 [facility] ([place]) DATE CREATED AUTHOR AUTHOR'S ORGANIZ ATION 07/11/2024 [facility] DATE CREATED AUTHOR AUTHOR'S ORGANIZ ATION 07/11/2024 [facility] DATE CREATED AUTHOR AUTHOR'S ORGANIZ ATION 07/18/2024 [employer] [facility] DATE CREATED AUTHOR AUTHOR'S ORGANIZ ATION 07/26/2024 [facility] DATE CREATED AUTHOR AUTHOR'S ORGANIZ ATION 07/29/2024 [facility] DATE CREATED AUTHOR AUTHOR'S ORGANIZ ATION 03/08/2025 [facility] Goals (unrecognized section and content) Goals may be documented in a n alternate section FOR RECORDS PERTAINING TO PATIENTS WHO ARE OR HAVE BEEN ENROLLED IN A CHEMICAL DEPENDENCY/SUBSTANCEABUSE PROGRAM, SOME INFORMATION MAY BE OMITTED. This clinical summary was aggregated from multiple sources. Caution should be exercised in using it in the provision of clinical care. This summary normalizes information from multiple sources, and as a consequence, information in this document may materially change the coding, format and clinical context of patient data. In addition, data may be omitted in some cases. CLINICAL DECISIONS SHOULD BE BASED ON THE PRIMARY CLINICAL RECORDS. [email or web address] provides no warranty or guarantee of the accuracy or completeness of information in this document.
== END | disposition home or self-care (01) ==
LOC: CVS 10:34
PROVIDERS: PCP Family Medicine; Referring Provider Internal Medicine Cardiovascular Disease; Visit Provider Internal Medicine Cardiovascular Disease
DX: R06.02 Shortness of breath (principal)
CPT/HCPCS: 93017; 93350; Q9957; A4216; C8928

== ENCOUNTER 2025-03-30 06:38 | Day surgery (SDC) | payer MEDICARE, OTHER, SELFPAY ==
--- NOTE | 2025-03-10 13:55 | PCM.HP.BLA ---
History and Physical Date of Admission: 03/30/25 Patient is a pleasant 79-year-old white male who presents for a cardiac catheterization following an abnormal stress test. Patient carries a history of known coronary disease status post stenting of the right coronary in 2018 which was the last of multiple stenting procedures. His most recent stress test was in February 2020 where he had a normal perfusion stress test with no evidence of ischemia. The patient now comes in reporting that episodically he is having shortness of breath for the last 5 to 6 months is associated with discomfort running down both arms. He thinks this is similar to what he had prior to his blockages in the past. However it is not completely predictable. He can go several days and have no effect and does his activities of daily living without incident. And then he will have an episode which resolves within a few minutes of taking the Tylenol. He is then able to go about his business and do his activities all day long without any restrictions. The patient also has a history of paroxysmal atrial fibrillation with COVID and a pulmonary embolus in April 2020 echocardiogram at that point in time showed an EF of 65% and normal LV function. There is no significant valvular heart disease noted. The patient also has a history of hypertension which is well-controlled he has a history of hyperlipidemia which is managed by the primary service. He does report that his HDL was low but he thought that his LDL was adequately controlled. His target LDL would be less than 70. Intake Vital Signs See EMR Allergies See EMR Medications See EMR [facility] Medical History Right hip pain Low back pain Tinea pedis COVID-19 Hyperpigmented skin lesion Proctitis Seborrheic keratoses Asthmatic bronchitis Gynecomastia PAF (paroxysmal atrial fibrillation) Essential (primary) hypertension Bruit Arthritis Prostatitis Atherosclerosis of coronary artery of [place] heart without angina pectoris Hyperlipidemia Surgical History History of colonoscopy H/O transurethral resection of prostate History of cystoscopy History of prostate surgery History of appendectomy History of coronary artery stent placement (10/03/17) Family History Father CAD (coronary artery disease) Myocardial infarction from MIBrother Heart disease CancerMother Heart diseaseOther Hypertension Social History other: Smoking Status: Never smoker alcohol intake: never caffeine: Yes Type: coffee Number of servings: 2 ROS Const Const: Negative for fatigue or weakness ENT ENT: Negative for dizziness or balance problems Cardio Chest Pain: No Palpitations: No Edema: None Muscle aches with walking: None Resp Respiratory: Positive for SOB with activity and SOB at rest; Negative for SOB orthopnea\SOB lying down GI GI: Negative nausea, vomiting or heartburn Musc Musc: Negative for muscle weakness or balance problems Neuro Neuro: Negative for dizziness, lightheadedness, near syncope, syncope or weakness Endo Endo: Negative for fatigue Cardiology Exam Const Appearance: cooperative, healthy appearing, comfortable, no acute distress and well developed Head Head: normal to inspection Eyes General: appearance normal, both eyes and all related structures Neck Neck: normal visual inspection and no JVD Carotids: Negative bruit Chest Chest inspection: normal inspection of the chest Auscultation: Bilateral: Clear to Auscultation Cardio Rate: regular rate Rhythm: regular rhythm Heart sounds: S1 normal and S2 normal; Negative rub, gallop or murmur GI GI: normal to inspection Neuro General: patient alert and patient oriented x3 Extremities Lower Extremity Edema: None: Bilateral Psych Psychological: normal affect Supplemental Info Supplemental Information Assessment and Plan Assessment and Plan (1) SOB (shortness of breath): Status: Acute Plan: Patient has episodes of shortness of breath associated with bilateral arm discomfort. This usually occurs early in the morning when he is first up and active. It does not occur every day. Patient's stress echocardiogram from 03/08/2025 demonstrated post exercise echocardiogram with hypokinesis of the inferior wall, suggestive of an inferior wall ischemia. Will proceed with cardiac catheterization to further assess this. Depending on results, further recommendations will be made. (2) Chest pain: Status: Acute Qualifiers: Chest pain type: unspecified Qualified Code(s): R07.9 - Chest pain, unspecified Plan: The bilateral arm discomfort is concerning for angina. Patient's stress echocardiogram from 03/08/2025 demonstrated post exercise echocardiogram with hypokinesis of the inferior wall, suggestive of an inferior wall ischemia. Will proceed with cardiac catheterization to further assess this. Depending on results, further recommendations will be made. (3) CAD (coronary artery disease): Status: Acute Qualifiers: Associated angina: unspecified whether angina present Coronary Disease-Associated Artery/Lesion type: [place] artery [place] vs. transplanted heart: [place] heart Qualified Code(s): I25.10 - Atherosclerotic heart disease of [place] coronary artery without angina pectoris Plan: Patient has known coronary disease status post multiple stenting procedures the last 1 was when the right coronary artery in 2018. He subsequent underwent stress testing in 2019 which showed no evidence of ischemia. Given the patient's symptoms presented as noted above and stress echocardiogram results, will proceed with a cardiac catheterization to further assess this. Depending on results, further recommendations will be made.
--- NOTE | 2025-03-23 08:09 | RAD_ITS ---
PROCEDURE: CHEST PA AND LATERAL 03/23/2025 REASON FOR EXAM: FOR HEART CATH TECHNIQUE: Procedure Code: RADCXR Modality: DX Procedure: CHEST PA AND LATERAL COMPARISON: Portable chest, 09/26/2020. FINDINGS: There is linear scarring in both lung bases. There is no lobar consolidation or pleural effusion. The heart borders and mediastinum are normal. The upper abdominal bowel gas pattern is normal. There are no significant bony abnormalities of the chest. RAD/Chest PA and Lateral IMPRESSION: No evidence of acute cardiopulmonary pathology. Other findings as noted Reading Location: [id number]
[2025-03-23 08:15] LABS: Hematocrit 44.2 % (40-54); Hemoglobin 15.4 g/dL (13.0-16.5); Immature Granulocytes Count 0.020 X10^3/uL (0.0-0.0); Mean Corp Hgb Conc 34.8 g/dL (32-36); Mean Corpuscular Volume 86.2 fL (80-94); Mean Platelet Vol. 8.5 fl (6.2-12.0); NRBC Flagged by Analyzer 0 % (0-5); Platelet Count 248 K/mm3 (150-450); RBC Distribution Width CV 13.0 % (11.6-14.6); RBC Distribution Width SD 40.9 fl (35.1-43.9); Red Blood Count 5.13 M/mm3 (4.6-6.2); White Blood Count 7.2 K/mm3 (4.4-11.0)
[2025-03-23 08:35] LABS: Partial Thromboplast Time 27.7 Seconds (24.1-36.2)
[2025-03-23 08:48] LABS: Anion Gap 10 (5-15); BUN 13 mg/dL (4-19); BUN/Creat Ratio 13.6 RATIO (10-20); Calcium,Total 9.0 mg/dL (7.6-11.0); Carbon Dioxide 23.5 mmol/L (21.0-32.0); Chloride 107 mmol/L (98-108); Glucose 106 mg/dL (70-99); Potassium 4.1 mmol/L (3.3-5.1)
[2025-03-29 08:27] VITALS: BMI 29.9
--- NOTE | 2025-03-30 08:31 | CL.D_ITS ---
Patient Name: VEGA FRAZIER Study Date: 03/30/2025 Performing: Jag Bailey MD Ht: 66 inches 167.64 cm : 1945 Wt: 186.2 lbs 84.37 kg Age: 79 Gender: male BSA: 1.94 PROCEDURE(S) PERFORMED DC01-(45980)LHC/COR/LV CLINICAL PROFILE AND INDICATIONS Indications: Suspected CAD Heart Failure: None Stress/Imaging Date: 03/05/25Stress Test with SPECT MPI: Positive Low Risk CAD Presentations: Stable angina. CONCLUSIONS Triple-vessel disease with stenosis noted in previously placed stents in the right coronary artery, circumflex artery and upper sioux disease noted in the LAD with good distal targets. Preserved ejection fraction. RECOMMENDATIONS Surgery consult for coronary revascularization DESCRIPTION OF PROCEDURE The patient arrived to the procedure lab. The risks and benefits of the procedure as well as a full description of our services here and current unavailability of surgical backup were fully explained to the patient and/or their significant other prior to the catheterization. The Timeout was completed, verifying the correct patient and procedure. The patient's procedural site was prepped and draped in the usual fashion. Local anesthetic was given subcutaneously to right radial region with Lidocaine 2%. Using a modified Seldinger technique, arterial access was obtained via the right radial artery, a 6Fr sheath was inserted. freddy phelan Left Coronary Artery selective angiography was performed in multiple views using a 5 Fr. 4.0 [place] catheter. Right Coronary Artery selective angiography was then performed in multiple views using a 5 Fr. 4.0 [place] catheter. Left Ventriculography was performed in CHOPRA projection using a 5 Fr. [place] catheter. LV to AO pullback pressures were then recorded.The arterial sheath was pulled and a TR Band was applied for hemostasis CORONARY ANGIOGRAPHY DOMINANCE: Right Dominant LEFT HEART ASSESSMENT Left Ventricular Ejection Fraction: by LV Gram 60 % Normal LV wall motion Normal Left Ventricular systolic function LEFT MAIN: Moderate calcification, Mild luminal irregularities LEFT ANTERIOR DESCENDING ARTERY: Moderate calcification, Ostial 70 to 80% stenosis, mid 70% stenosis, mid to distal 70% stenosis, luminal irregularities noted. 2 prominent diagonal branches noted with moderate disease present. CIRCUMFLEX ARTERY: Proximal circumflex artery has a 70% stenosis. The 1st and 2nd obtuse marginal branches are small with no high-grade stenosis the first obtuse marginal branch previously stented has an in-stent stenosis of 80%. RIGHT CORONARY ARTERY: Dominant vessel severely diseased proximal 90% stenosis and then followed by an area of 50% stenosis and then an 80% proximal in-stent stenosis. The vessel then continues with moderate disease and prior to the bifurcation has a 60 to 70% stenosis. COLLATERAL FLOW: Collateral flow from Left to Right COMPLICATIONS No Complications PROCEDURE MEDICATIONS Versed 1 mg IV Fentanyl 50 mcg IV Oxygen: 2 L/min via nasal cannula Heparin given IA 03/30/2025 08:07:02 Verapamil 2.5mg, Ntg 200mcgs, 2000 units of Heparin given IA 03/30/2025 08:07:02 SUMMARY OF HEMODYNAMIC DATA Time AIR REST ECG 07:15:52 AO 124/71 (93) SA 08:08:47 LV 133/2, 8 08:17:40 LV 134/3, 8 08:17:49 LVp 125/18, 35 08:18:54 AOp 131/73 (100) 08:19:01 Signed By Jag Bailey MD On 03/30/2025 08:30:26 Jag Bailey MD
== END 2025-03-30 10:15 | disposition home or self-care (01) ==
PROVIDERS: PCP Physician Assistant; Referring Provider Internal Medicine Cardiovascular Disease; Visit Provider Internal Medicine Cardiovascular Disease
DX: I25.118 Atherosclerotic heart disease of native coronary artery with other forms of angina pectoris (principal); I48.0 Paroxysmal atrial fibrillation; I10 Essential (primary) hypertension; Z95.5 Presence of coronary angioplasty implant and graft; E78.5 Hyperlipidemia, unspecified; R06.02 Shortness of breath; R07.9 Chest pain, unspecified; T82.855A Stenosis of coronary artery stent, initial encounter; Y71.8 Miscellaneous cardiovascular devices associated with adverse incidents, not elsewhere classified
CPT/HCPCS: 36415; 71046; 80048; 85025; 85730; 93458; 99152; 99153; Q9967; A4216; C1769; C1894

== ENCOUNTER → 2025-04-12 | Outpatient (CLI) | payer MEDICARE, OTHER, SELFPAY ==
--- NOTE | 2025-04-12 14:38 | ECHOCS_ITS ---
Reason For Study Reason For Study: CAD/ASHD Procedure This was a 2D Doppler, Color Flow transthoracic echocardiogram. The study was technically difficult. Contrast injection was performed. Exam performed in department. Left Ventricle Normal LV size. The left ventricular ejection fraction is 55 %. Stage 1 diastolic dysfunction. Right Ventricle Normal RV size. Normal systolic function. Atria Normal left atrium. Normal right atrium. Mitral Valve Normal mitral valve. Tricuspid Valve Normal tricuspid valve. Aortic Valve Trisinus/trileaflet aortic valve. Pulmonic Valve The pulmonic valve is not well visualized. Great Vessels Normal aortic root. The pulmonary artery is normal size. Inferior vena cava collapse with respiration. Pericardium/Pleural No pericardial effusion. Medication 22 gauge I.V. with prn adaptor inserted into right arm. Diluted definity 3ml given slow IV push to enhance endocardial definition. MMode/2D Measurements & Calculations LVIDd: 4.6 cm IVSd: 0.90 cm Ao root diam: 3.3 cm LVIDs: 3.2 cm LVPWd: 1.1 cm RVDd: 3.6 cm FS: 31.0 % LAV(MOD-bp): 37.2 ml LVAd ap4: 30.9 cm2 SV(MOD-sp4): 46.0 ml LAV(MOD-bp) Indexed: 19.2 ml/m2 LVLd ap4: 8.9 cm SI(MOD-sp4): 23.7 ml/m2 LAV(MOD-sp2): 28.7 ml EDV(MOD-sp4): 86.9 ml LAV(MOD-sp4): 39.9 ml EDV(sp4-el): 91.0 ml LVAs ap4: 18.7 cm2 LVLs ap4: 6.9 cm ESV(MOD-sp4): 40.9 ml ESV(sp4-el): 42.9 ml EF(MOD-sp4): 53.0 % EF(sp4-el): 52.8 % SV(sp4-el): 48.0 ml LA A4 area: 16.3 cm2 LA dimension(2D): 3.6 cm RA A4 area: 13.2 cm2 TAPSE: 2.2 cm Time Measurements MV dec time: 0.26 sec Doppler Measurements & Calculations MV E max osito: 90.8 cm/sec Lat Peak E' Osito: 11.6 cm/sec Med Peak E' Osito: 9.0 cm/sec MV A max osito: 118.6 cm/sec E/E' lat: 7.8 E/E' med: 10.1 MV E/A: 0.77 MV V2 max: 126.8 cm/sec MV P1/2t max osito: 82.8 cm/sec Ao V2 max: 184.1 cm/sec MV max P.4 mmHg MV P1/2t: 77.4 msec Ao max P.6 mmHg MV V2 mean: 64.6 cm/sec MV dec slope: 313.3 cm/sec2 Ao V2 mean: 124.0 cm/sec MV mean P.0 mmHg MVA(P1/2t): 2.8 cm2 Ao mean P.2 mmHg MV V2 VTI: 26.7 cm Ao V2 VTI: 35.5 cm AV (velocity ratio): 0.69 LV V1 max: 127.1 cm/sec LV V1 max P.5 mmHg LV V1 mean P.9 mmHg LV V1 mean: 77.5 cm/sec LV V1 VTI: 24.4 cm ECHO/Echo Complete W/ Contrast Interpretation Summary Normal LV size. The left ventricular ejection fraction is 55 %. Stage 1 diastolic dysfunction. Contrast injection was performed. Ordering Physician: Jag Bailey Referring Physician: Jag Bailey Performed By: Adal Craig RCS
== END | disposition home or self-care (01) ==
LOC: CVS 14:38
PROVIDERS: PCP Physician Assistant; Referring Provider Internal Medicine Cardiovascular Disease; Visit Provider Internal Medicine Cardiovascular Disease
DX: I25.10 Atherosclerotic heart disease of native coronary artery without angina pectoris (principal)
CPT/HCPCS: 93306; Q9957; A4216; C8929